=== PATIENT | female | born 1935 | race Caucasian/White ===

== ENCOUNTER → 2018-06-07 | Outpatient (CLI) | payer MEDICARE ==
[2018-06-07 14:43] LABS: ALBUMIN 3.3 g/dL (3.4-5.0); ALBUMIN/GLOBULIN RATIO 0.8 (1.0-1.7); CALCIUM 9.3 mg/dL (8.5-10.1); CREATININE 1.1 mg/dL (0.6-1.0); GFR 47.6; POTASSIUM 4.9 mmol/L (3.5-5.1); TOTAL BILIRUBIN 0.6 mg/dL (0.2-1.0); TOTAL PROTEIN 7.5 g/dL (6.4-8.2)
== END | disposition home or self-care (01) ==
LOC: SPEC 14:17
PROVIDERS: ATTEND Family Medicine
DX: I11.0 Hypertensive heart disease with heart failure (principal); I50.40 Unspecified combined systolic (congestive) and diastolic (congestive) heart failure; I69.398 Other sequelae of cerebral infarction; R41.841 Cognitive communication deficit
CPT/HCPCS: 36415; 80053

== ENCOUNTER → 2018-06-29 | Outpatient (CLI) | payer MEDICARE ==
[2018-06-29 13:20] LABS: CALCIUM 8.5 mg/dL (8.5-10.1); GFR 53.1; POTASSIUM 4.9 mmol/L (3.5-5.1)
== END | disposition home or self-care (01) ==
LOC: SPEC 13:01
PROVIDERS: ATTEND Family Medicine
DX: I11.0 Hypertensive heart disease with heart failure (principal); I50.40 Unspecified combined systolic (congestive) and diastolic (congestive) heart failure; L03.115 Cellulitis of right lower limb; I69.398 Other sequelae of cerebral infarction
CPT/HCPCS: 36415; 80048

== ENCOUNTER → 2018-10-10 | Outpatient (CLI) | payer MEDICARE ==
[2018-10-10 15:34] LABS: ALBUMIN 3.3 g/dL (3.4-5.0); ALBUMIN/GLOBULIN RATIO 0.8 (1.0-1.7); CALCIUM 9.2 mg/dL (8.5-10.1); CREATININE 1.1 mg/dL (0.6-1.0); GFR 47.6; POTASSIUM 4.6 mmol/L (3.5-5.1); TOTAL BILIRUBIN 0.4 mg/dL (0.2-1.0); TOTAL PROTEIN 7.2 g/dL (6.4-8.2)
== END | disposition home or self-care (01) ==
LOC: SPEC 14:52
PROVIDERS: ATTEND Family Medicine
DX: I11.0 Hypertensive heart disease with heart failure (principal); I50.9 Heart failure, unspecified; I25.10 Atherosclerotic heart disease of native coronary artery without angina pectoris; I25.5 Ischemic cardiomyopathy
CPT/HCPCS: 36415; 80053

== ENCOUNTER 2020-09-16 12:00 | Inpatient (IN) | payer MEDICARE, OTHER ==
[~2020-09-16] VITALS: Ht 160 cm; Wt 71.0 kg
[2020-09-16] VITALS (11 sets, daily range): BP systolic 76–154; BP diastolic 44–74
--- NOTE | 2020-09-16 12:14 | RAD ---
EXAM: CT head without contrast INDICATION: Stroke alert, right-sided deficits. No history of prior stroke COMPARISON: None TECHNIQUE: Axial CT imaging through the head without intravenous contrast. One or more of the following individualized dose reduction techniques were utilized for this examinat ion: 1. Automated exposure control 2. Adjustment of the mA and/or kV according to patient size 3. Use of iterative reconstruction technique. FINDINGS: There is hypoattenuation along the medial left occipital cortex adjacent to the occipital horn of the left lateral ventricle, suspicious for an age indeterminate infarct. There is no intracranial hemorr romario. Ventricles and sulci are moderately enlarged. The calvarium is intact. The visualized paranasal sinuses and mastoid air cells are clear. Globes and orbits are intact. IMPRESSION: 1. No intracranial hemorrhage. 2. Age-indeterminate infarct in the medial left occipital lobe. MRI could be obtained to further eval uate for acute infarct if indicated. FOR INTERNAL CODING PURPOSES Critical result: Findings discussed with Dr. Delgadillo at 09/16/2020 12:09 PM. RESULT CODE: (C) Electronically signed by: Rosy Alberto MD (09/16/2020 12:11 PM) [id number]
[2020-09-16] MEDS ORDERED: VANCOMYCIN 1 GM in IV NORMAL SALINE 250ML 250 ML IV ONE (12:30)
[2020-09-16 13:58] LABS: BASO # 0.1 x10^3/uL (0.0-0.2); BASO % 1 % (0-3); EOS % 0 % (0-3); HEMATOCRIT 44.8 % (36.0-47.0); HEMOGLOBIN 14.9 g/dL (12.0-15.5); LYMPH # 0.4 x10^3/uL (1.0-4.8); LYMPH % 2 % (24-48); MEAN CORPUSCULAR HEMOGLOBIN 34 pg (25-35); MEAN CORPUSCULAR HGB CONC 33 g/dL (31-37); MEAN CORPUSCULAR VOLUME 103 fL (79-100); MONO # 0.5 x10^3/uL (0.0-1.1); MONO % 3 % (0-9); NEUT # 17.3 x10^3uL (1.8-7.7); NEUT % 94 % (31-73); PLATELET COUNT 194 x10^3/uL (140-400); RED BLOOD COUNT 4.36 x10^6/uL (3.50-5.40); RED CELL DISTRIBUTION WIDTH 14.7 % (11.5-14.5); WHITE BLOOD COUNT 18.4 x10^3/uL (4.0-11.0)
[2020-09-16 14:00] LABS: CALCIUM 9.2 mg/dL (8.5-10.1); CREATININE 1.2 mg/dL (0.6-1.0); GFR 42.8
[2020-09-16] MEDS ORDERED: VANCOMYCIN 1.75 GM in IV NORMAL SALINE 500ML 500 ML IV ONE ×2 (14:00→21:00)
[2020-09-16 14:06] LABS: ALBUMIN 3.7 g/dL (3.4-5.0); ALBUMIN/GLOBULIN RATIO 0.8 (1.0-1.7); TOTAL BILIRUBIN 1.4 mg/dL (0.2-1.0); TOTAL PROTEIN 8.1 g/dL (6.4-8.2)
[2020-09-16 14:26] LABS: % ATYL 7 % (0-0); % BANDS 15 % (0-9); % BASOS 1 % (0-3); % LYMPHS 1 % (24-48); % MONOS 4 % (0-10); % SEGS 72 % (35-66); PLT ESTIMATE ADEQUATE (ADEQUATE)
--- NOTE | 2020-09-16 14:40 | PHYS DOC ---
Past History Additional Past Medical Histor: pacemaker Past Surgical History: Pacemaker Alcohol Use: None Adult General Chief Complaint Chief Complaint: NEURO SYMPTOMS/DEFICITS [facility] Patient is an 85-year-old female who presents to the emergency room who presents to the emergency room due to lethargy and falling to the right side. She was last seen normal at 1030 last night. Family states she does not have any neuro deficits at baseline and is able to follow commands. Patient denies any complaints other than feeling sleepy. She is a poor historian. Review of Systems Review of Systems Complete ROS is negative unless otherwise documented in HPI Current Medications Current Medications Current Medications Medications (Trade) Dose Ordered Sig/Zarina Start Time Stop Time Status Last Admin Dose Admin Vancomycin HCl 1.75 gm/Sodium Chloride 500 ml @ 250 mls/hr 1X ONCE 09/16/20 14:00 09/16/20 15:59 09/16/20 14:23 250 MLS/HR Vancomycin HCl 1 gm/Sodium Chloride 250 ml @ 250 mls/hr 1X ONCE 09/16/20 12:30 09/16/20 13:29 UNV Allergies Allergies Allergies Coded Allergies Type Severity Reaction Last Updated Verified No Known Drug Allergies 09/16/20 No Physical Exam Physical Exam General: Awake, lethargic. Well Nourished, well hydrated. Cooperative HEENT: Atraumatic, EOMI, PERRL, airway patent, dry oral mucosa Neck: Supple, trachea midline Respiratory: CTA bilaterally, normal effort, no wheezing/crackles CV: RRR, no murmur, cap refill <2 GI: Soft, nondistended, nontender, no masses MSK: Right lower extremity: Erythema from the ankle to below the knee with swelling and warmth consistent with cellulitis Skin: Warm, dry, intact Neuro: A&O x3, speech limited, patient intermittently moves limbs but is unable to do strength testing in any of the 4 limbs. She is able to squeeze my fingers on both sides and appears to be weaker on the right. Patient is unable to stand. She does not follow commands to do cranial nerve evaluation. Psych: Confused, lethargic, not suicidal or homicidal Current Patient Data Vital Signs Vital Signs Date Time Temp Pulse Resp B/P (MAP) Pulse Ox O2 Delivery O2 Flow Rate FiO2 09/16/20 14:06 71 16 140/55 (83) 99 Room Air 09/16/20 12:03 100.4 Lab Results Laboratory Tests Test 09/16/20 13:25 White Blood Count 18.4 x10^3/uL (4.0-11.0) H Red Blood Count 4.36 x10^6/uL (3.50-5.40) Hemoglobin 14.9 g/dL (12.0-15.5) Hematocrit 44.8 % (36.0-47.0) Mean Corpuscular Volume 103 fL (79-100) H Mean Corpuscular Hemoglobin 34 pg (25-35) Mean Corpuscular Hemoglobin Concent 33 g/dL (31-37) Red Cell Distribution Width 14.7 % (11.5-14.5) H Platelet Count 194 x10^3/uL (140-400) Neutrophils (%) (Auto) 94 % (31-73) H Lymphocytes (%) (Auto) 2 % (24-48) L Monocytes (%) (Auto) 3 % (0-9) Eosinophils (%) (Auto) 0 % (0-3) Basophils (%) (Auto) 1 % (0-3) Neutrophils # (Auto) 17.3 x10^3uL (1.8-7.7) H Lymphocytes # (Auto) 0.4 x10^3/uL (1.0-4.8) L Monocytes # (Auto) 0.5 x10^3/uL (0.0-1.1) Eosinophils # (Auto) 0.0 x10^3/uL (0.0-0.7) Basophils # (Auto) 0.1 x10^3/uL (0.0-0.2) Segmented Neutrophils % 72 % (35-66) H Band Neutrophils % 15 % (0-9) H Lymphocytes % 1 % (24-48) L Atypical Lymphocytes % (Manual) 7 % (0-0) H Monocytes % 4 % (0-10) Basophils % 1 % (0-3) Platelet Estimate Adequate (ADEQUATE) Sodium Level 139 mmol/L (136-145) Potassium Level 4.0 mmol/L (3.5-5.1) Chloride Level 102 mmol/L (98-107) Carbon Dioxide Level 29 mmol/L (21-32) Anion Gap 8 (6-14) Blood Urea Nitrogen 24 mg/dL (7-20) H Creatinine 1.2 mg/dL (0.6-1.0) H Estimated GFR (Cockcroft-Gault) 42.8 BUN/Creatinine Ratio 20 (6-20) Glucose Level 108 mg/dL (70-99) H Lactic Acid Level 3.0 mmol/L (0.4-2.0) H Calcium Level 9.2 mg/dL (8.5-10.1) Total Bilirubin 1.4 mg/dL (0.2-1.0) H Aspartate Amino Transferase (AST) 17 U/L (15-37) Alanine Aminotransferase (ALT) 17 U/L (14-59) Alkaline Phosphatase 93 U/L (46-116) Total Protein 8.1 g/dL (6.4-8.2) Albumin 3.7 g/dL (3.4-5.0) Albumin/Globulin Ratio 0.8 (1.0-1.7) L EKG EKG [] Radiology/Procedures Radiology/Procedures [] Heart Score C/O Chest Pain: N/A Risk Factors: Risk Factors: DM, Current or recent (<one month) smoker, HTN, HLP, family history of CAD, obesity. Risk Scores: Risk Factors: DM, Current or recent (<one month) smoker, HTN, HLP, family history of CAD, obesity. Course & Med Decision Making Course & Med Decision Making Pertinent Labs and Imaging studies reviewed. (See chart for details) Patient is an 85-year-old female presents to the emergency room with leaning to the right side and concern of neuro deficits. Patient does not have any chronic deficits. Neurologic exam is difficult due to patient's lethargy and conf usion. She was activated as a stroke in the field. CT head was done and shows possible subacute stroke. Her last known well time was at 1030 last night patient is not a candidate for TPA. Patient's initial vitals show that she is febrile and tachycardic. She also has a white blood cell count. She has cellulitis on the right lower extremity. Patient appears to have sepsis as well as a subacute stroke. I discussed it with Dr. Pereira who will admit the patient here at [facility]. Neurology will be consulted. Dragon Disclaimer Dragon Disclaimer This electronic medical record was generated, in whole or in part, using a voice recognition dictation system. Critical Care Note Comments Critical Care: Authorized and Performed by: Layla Delgadillo MD Total critical care time: approximately 40 minutes Due to a high probability of clinically significant, life threatening deterioration, the patient required my highest level of preparedness to in [facility] emerg[facility] and I personally spent this critical care time directly and personally managing the patient. This critical care time included obtaining a history; examining the patient; pulse oximetry; ventilator management if necessary; ordering and review of studies; arranging urgent treatment with development of a management plan; evaluation of patient's response to treatment; frequent reassessment; discussion with patient/family; and, discussions with other providers. This critical care time was performed to assess and manage the high probability of imminent, life-threatening deterioration that could result in multi-organ anna lure. It was exclusive of separately billable procedures and treating other patients and teaching time. Please see MDM section and the rest of the note for further information on patient assessment and treatment. Departure Departure: Impression: Primary Impression: Sepsis Additional Impressions: Cellulitis Stroke Disposition: ADMITTED INPATIENT Condition: CRITICAL Referrals: PCP,NO (PCP) Problem Qualifiers LAYLA DELGADILLO MD Sep 16, 2020 14:40
[2020-09-16] MEDS ORDERED: IV NORMAL SALINE 1,000ML 1,000 ML IV ONE (14:45)
--- NOTE | 2020-09-16 14:59 | RAD ---
EXAM: Chest, single view. HISTORY: Shortness of breath. COMPARISON: None. FINDINGS: A frontal view of the chest is obtained. There is no infiltrate, pleural effusion or pneumo thorax. There is a prominent cardiac silhouette. There is a cardiac pacemaker in expected position. T here is instrumented fusion at the lower thoracic levels. There is an IVC filter at the inferior kellie in of the [id number]. There is a prominent right paratracheal stripe likely due to tortuous arch g reat vessels. IMPRESSION: No acute pulmonary finding. Prominent cardiac silhouette. Electronically signed by: Sammie Adhikari MD (09/16/2020 2:57 PM) [id number]
[2020-09-16] MEDS ORDERED: ACETAMINOPHEN 325 MG TABLET PO PRN (17:15)
[2020-09-16] MEDS ORDERED: ONDANSETRON PF 4 MG/2 ML VIAL. IVP PRN (17:15)
[2020-09-16] MEDS ORDERED: METOCLOPRAMIDE HCL 10 MG/2 ML VIAL. IVP PRN (17:15)
[2020-09-16] MEDS ORDERED: ASPI-630 PO (17:39)
[2020-09-16] MEDS ORDERED: CHOL50003 PO (17:39)
[2020-09-16] MEDS ORDERED: NYST1000 PO (17:39)
[2020-09-16] MEDS ORDERED: METO-239 PO (17:39)
[2020-09-16] MEDS ORDERED: CARB200T3 PO (17:39)
[2020-09-16] MEDS ORDERED: BACL10TA PO (17:39)
[2020-09-16] MEDS ORDERED: GABA600T7 PO (17:39)
[2020-09-16] MEDS ORDERED: FURO40TA4 PO (17:39)
[2020-09-16] MEDS ORDERED: PANT40TA6 PO (17:39)
[2020-09-16] MEDS ORDERED: TEMA15CA PO (17:39)
[2020-09-16] MEDS ORDERED: ACET325T21 PO (17:39)
[2020-09-16] MEDS ORDERED: FERR325T14 PO (17:39)
[2020-09-16] MEDS ORDERED: APIX5TAB3 PO (17:39)
[2020-09-16] MEDS ORDERED: RAMI5CAP50 PO (17:39)
[2020-09-16] MEDS ORDERED: NYST15PO9 TP (18:05)
[2020-09-16] MEDS ORDERED: PIP/TAZO PER PHARMACY MC PRN (18:45)
[2020-09-16] MEDS ORDERED: VANCOMYCIN PER PHARMACY MC PRN (18:45)
--- NOTE | 2020-09-16 18:55 | NUR ---
PT admittted to I[facility] bed 3. PT reports that within the last day the patient has declined. She has been asking him to feed her and not getting around well. She was walking with the 'walker' that they have at home somewhat reports the . She is incontinent and he does change her, but they have home health also. PT was getting care through [facility] and has been having the RLE cellulitis since at least since june and was on zyvoxx po. PT denies history of cva and has been taking her eliquis. Daughter is involved in care and lives in [facility]. Pt is a DNR, but does not have a DPOA. PT has a known open coccyx wound and excoriation in her john area and under her breasts that they have been using nystatin power on per her . Initially they requested transport to [facility], however, they are 'not open' per ER. is ok with her staying here if that is appropriate. Ladonna Chandler APRN
[2020-09-16] MEDS: IV NORMAL SALINE 1,000ML 1,000 ML IV SCH (19:09)
--- NOTE | 2020-09-16 19:54 | HP ---
ADMIT DATE: 09/16/2020 HISTORY OF PRESENT ILLNESS: The patient is an 85-year-old female patient, who lives at home with her who was brought to the Emergency Room with a complaint of altered mental status. She apparently has been lethargic and falling to the right side. According to her , she also stated that she is now unable to use her right hand to feed herself. According to the family, the patient is not known to have any neurological deficit at baseline and is able to follow commands and according to her and , she was able to walk with a walker, although clinically she has bilateral footdrop. She was evaluated in the Emergency Room and has had a CT scan of the head which basically showed no intracranial hemorrhage, age indeterminate infarct, in the medial left occipital lobe. MRI could be obtained to further evaluate for acute infarct if indicated. Her chest x-ray showed no acute pulmonary finding with a prominent cardiac silhouette, has had lab work showed that she has leukocytosis and lactic acidosis and she was found to have right lower extremity cellulitis that extends all the way to the right thigh. She apparently was on oral Zyvox at home. PAST MEDICAL HISTORY: Significant for hypertension, atrial fibrillation, gastroesophageal reflux disease. PAST SURGICAL HISTORY: Significant for permanent pacemaker placement. FAMILY HISTORY: Noncontributory. SOCIAL HISTORY: She is and lives with her . She does not smoke, drink alcohol or use any recreational drugs. ALLERGIES: She has no known drug allergies. MEDICATIONS: She is currently on the following medications: She is on nystatin oral suspension 5 mL swish and swallow 4 times a day, baclofen 5 mg 3 times a day, ferrous sulfate 325 mg once a day, apixaban 5 mg twice a day, metoprolol succinate 25 mg once a day, ramipril 5 mg once a day, aspirin 81 mg once a day. She is on acetaminophen 650 mg every 6 hours, carbamazepine 200 mg twice a day, gabapentin 600 mg 3 times a day, temazepam 15 mg at bedtime, furosemide 40 mg once a day, Protonix 40 mg once a day, nystatin powder apply topically twice a day, cholecalciferol, vitamin D3 125 mcg once a day. PHYSICAL EXAMINATION: GENERAL: On arrival to the emergency room, the patient showed no pallor, jaundice, cyanosis, no lymphadenopathy, no thyromegaly, no jugular venous distention. No lower limb edema. VITAL SIGNS: Her heart rate was 70, blood pressure 150/75, temperature was 100.4, respiratory rate was 16 and oxygen saturation was 98% on room air. HEAD, EYES, EARS, NOSE AND THROAT: Showed normocephalic, atraumatic. NECK: Supple. HEART: Showed normal first and second heart sounds, no gallop, rub or murmur. CHEST: Clear to auscultation, no crepitation or rhonchi. ABDOMEN: Distended, soft, nontender, no guarding or rigidity. No organomegaly. All hernial orifice intact. Bowel sounds normal. NEUROLOGIC: She is awake, alert, responding appropriately. All her cranial nerves are intact. She is able to move her extremities, although she stated that she has now had been unable to move the right hand and can feed herself. She has bilateral footdrop. SKIN: Showed marked erythema involving the right lower extremity from the mid dorsal aspect of the right foot extending proximally all the way to the right groin. LABORATORY DATA: On admission showed that her white cell count was 18,400, hemoglobin 14, hematocrit 44, MCV 103 and platelet count of 194,000 with a manual differential showed 94% polymorphs, 2% lymphocytes and 3% monocytes. Her chemistry showed a serum sodium 139, potassium 4, chloride 102, bicarbonate 29, anion gap of 8, BUN 24, creatinine 1.2. Estimated GFR was 42 mL per minute. Her glucose 108. Her lactic acid was high at 3, calcium was 9.2. Total bilirubin is 1.4. AST, ALT, alkaline phosphatase were normal. Total protein was 8.1, albumin was 3.7. ASSESSMENT AND PLAN: In summary, this is an 85-year-old female patient who was seen in the emergency room for altered mental status and what seems tendency to fall to the right side. The patient herself stated that she is unable to use her right upper extremity. Clinically, she has marked tremors anticipation although according to her she has never been told that she has Parkinson's disease nor that she has benign essential familial tremor. Her CT scan of the head showed that she has age indeterminate infarct in the medial left occipital lobe. MRI could be obtained to further evaluate for acute infarct if indicated. My plan is to continue with IV vancomycin and add IV Zosyn given that she continued to be symptomatic despite being on Zyvox. I will arrange for her to have bilateral carotid Doppler ultrasound. I will consult the neurologist and arrange for bilateral carotid Doppler ultrasound and fasting lipid profile and decide on further management accordingly. If the family wants to continue transferring her to [facility], we will arrange that tomorrow. Apparently, they have no bed today. DANIEL DR: Sergio TID: [id number]
[2020-09-16] MEDS: GABAPENTIN 300 MG CAPSULE. PO SCH (20:30)
[2020-09-16] MEDS: carBAMazepine 200 MG TABLET PO SCH (20:30)
[2020-09-16] MEDS: APIXABAN 5 MG TABLET. PO SCH (20:30)
[2020-09-16] MEDS: TEMAZEPAM 15 MG CAPSULE PO SCH (20:30)
[2020-09-16] MEDS: PIPERACILLIN/TAZOBACTAM 2.25 GM in IV NORMAL SALINE 50ML 50 ML IV SCH (20:30)
[2020-09-16] MEDS: NYSTATIN TOPICAL POWDER 15GM BOTTLE. TP SCH (20:30)
[2020-09-16] MEDS: NYSTATIN 100,000 UNITS/ML ORAL SUSPENSION 60ML BOTTLE. PO SCH (20:31)
[2020-09-16] MEDS: BACLOFEN 10 MG TABLET PO SCH (20:31)
[2020-09-16] MEDS: LISINOPRIL 10 MG TABLET PO SCH (21:00)
--- NOTE | 2020-09-16 21:00 | NUR ---
Pt awake in bed at change of shift watching TV. Pt is lethargic but able to answer questions appropriately. Pt frequently yells out for assistance in finding a TV channel, applying [employer] or for a drink. Pt with upper & lower right leg cellulitis, 2 open coccyx wounds and excoriation under both breast and john-area. Wound photos taken using [employer] system and placed in paper chart. Foam dressings applied to coccyx wounds. Nystatin powder applied to excoriation under breast and john-area. Wound care and Dietary consulted. Pt took HS medications whole but one at a time without difficulty. Pt needed max assist with HS snack but swallowed without difficulty. Pt with Sherman catheter draining straw colored urine. Pt turn Q2 with purple wedge. Dr Castaneda here to see pt. Pt to have bilateral Carotid Doppler in AM. PICC and specialty bed ordered, awaiting call back fro [facility] for PICC line.
--- NOTE | 2020-09-16 21:11 | NUR ---
Pharmacy Vancomycin Dosing Note S:Consulted to monitor and dose vancomycin started 09/16/20. O:CANDELARIA LUGO is a 85 year old F with Cellulitis Sepsis, . Height: 5 feet, 3 inches Weight: 71.0 kg [place] Body Weight: 52.40 Adjusted Body Weight: 59.84 Dosing Weight: Actual Other Antibiotics: ZOSYN 2.25GM IV Q6HR LABS: Last BUN: 24 Last Creatinine: 1.2 Creatinine Clearance: 32.97 Last WBC: 18.4 Vancomycin Dosing: Loading Dose: 1750 mg x1 Dosing Weight: Actual Target Trough: 10-20 A: Based on: Actual weight, renal function, and indication P: 1. Begin Vancomycin 1000 mg IV q24h 2. Follow up Trough level on 09/18/20 at 2030 3. Pharmacy will continue to monitor, follow and adjust therapy as needed. JAIME SPENCER, 09/16/20 [id number]
[2020-09-16] MEDS ORDERED: IV NORMAL SALINE 500ML 500 ML IV ONE (22:45)
--- NOTE | 2020-09-16 23:20 | NUR ---
Pt with low BP while sleeping (95/37 and 76/46 and 78/46). Dr Pereira called and notified, orders received. BP improved after bolus, now 113/67. Pt asleep in bed.
[2020-09-17] VITALS (26 sets, daily range): BP systolic 90–146; BP diastolic 42–84
[2020-09-17] MEDS: PIPERACILLIN/TAZOBACTAM 2.25 GM in IV NORMAL SALINE 50ML 50 ML IV SCH ×4 (01:52→19:58)
--- NOTE | 2020-09-17 02:46 | CONS ---
DATE OF CONSULTATION: 09/16/2020 NEUROLOGY CONSULTATION REFERRING PHYSICIAN: Dr. Pereira. REASON FOR CONSULTATION: Acute mental status, rule out stroke. HISTORY OF PRESENT ILLNESS: This is an 85-year-old right-handed female, who was admitted through emergency room after she was found confused and disoriented. She states she has been falling recently and difficulty to walk and use her right upper extremity. The patient denies headaches, visual disturbances, nausea, vomiting, chest pain, shortness of breath or palpitation. However, she complains of generalized weakness, intermittent tremor of the upper extremities. Initial nonenhanced head CT scan revealed an old infarct confined to the left occipital region. Initial chest x-ray revealed no acute pulmonary process. The patient stated she started having a right lower extremity swelling along with pain and feeling hot and consistent with symptoms of cellulitis. PAST MEDICAL HISTORY: Significant for atrial fibrillation, hypertension, GERD. PAST SURGICAL HISTORY: Positive for a permanent pacemaker placement. SOCIAL HISTORY: The patient is . She lives with her at home. She denies smoking, alcohol drinking or illicit drug use. FAMILY HISTORY: Noncontributory. ALLERGIES: No known drug allergies. CURRENT HOME MEDICATIONS: Baclofen, ferrous sulfate, apixaban, metoprolol, ramipril, Tylenol, gabapentin, carbamazepine, temazepam, furosemide, vitamin D3, and Protonix. PHYSICAL EXAMINATION: GENERAL: A well-developed, well-nourished female in no acute distress. She weighs 71 kilos. VITAL SIGNS: Blood pressure 95/44, respiratory rate 12, pulse rate 70, irregular; oxygen saturation is 96% on 2 liters per nasal cannula. HEENT: Normocephalic, atraumatic, otherwise unremarkable. NECK: Supple, negative for carotid bruit, lymphadenopathy or thyromegaly. LUNGS: Clear to A and P. CARDIAC: Regular rate and rhythm, normal S1, S2. ABDOMEN: Soft. Bowel sounds positive. EXTREMITIES: Negative for cyanosis. However, the right lower extremity reveals diffuse swelling, warmth to touch with discoloration, consistent with cellulitis. NEUROLOGIC: Mental status: The patient is alert and oriented x2. Speech is clear. There is no language dysfunction. Memory, judgment and abstracting thinkings are fair. The patient denies hallucination or delusion. Cranial Nerves: The pupils are equal and reactive to light and accommodation. Extraocular movements are intact. There is no nystagmus. There is no facial motor or sensory deficit. Hearing appeared to be intact bilaterally. The palate is elevated symmetrically. Sternocleidomastoid muscles are powerful bilaterally. The patient shrugs her shoulders symmetrically and protrudes her tongue in the midline without fasciculation or atrophy. Motor Examination: No focal muscle bulk wasting. The tone is normal. The strength is 4/5 throughout. The patient has resting, postural and kinetic tremors of the upper extremities, more prominent on the left side. Sensory examination revealed a normal pinprick and light touch senses throughout. Deep tendon reflexes were asymmetric and hypoactive with absent Achilles responses. Gait not tested. LABORATORY DATA: CBC revealed white cells of 18.4 thousand, hemoglobin 14.9, hematocrit 44.8, platelet count 194,000. Chemistry revealed a sodium of 139, potassium 4, chloride 102, CO2 of 29, BUN 24, creatinine 1.2, glucose 108, calcium 9.2. Liver enzymes normal. IMPRESSION: 1. Acute encephalopathy, probably due to underlying metabolic and infectious process. 2. Dehydration versus renal insufficiency. 3. Leukocytosis, likely due to acute cellulitis. 4. history of atrial fibrillation s/p pacemaker placement 5. Hypertension. 6. Postural and kinetic tremor, may represent essential tremor. RECOMMENDATION: 1. Continue with current medical therapy initiated by Dr. Pereira and treat the underlying sepsis. 2. Start patient on primidone at 50 mg it daily and increase it gradually as tolerated 3. Physical therapy evaluation. MODE DR: Ritika TID: [id number] MTDD
[2020-09-17] MEDS: IV NORMAL SALINE 1,000ML 1,000 ML IV SCH ×3 (05:47→17:17)
[2020-09-17] MEDS: NYSTATIN TOPICAL POWDER 15GM BOTTLE. TP SCH ×2 (09:00→20:45)
[2020-09-17] MEDS: NYSTATIN 100,000 UNITS/ML ORAL SUSPENSION 60ML BOTTLE. PO SCH ×4 (09:00→20:44)
[2020-09-17] MEDS: APIXABAN 5 MG TABLET. PO SCH ×2 (09:31→20:45)
[2020-09-17] MEDS: BACLOFEN 10 MG TABLET PO SCH ×3 (09:31→20:45)
[2020-09-17] MEDS: PANTOPRAZOLE 40 MG TABLET. PO SCH (09:31)
[2020-09-17] MEDS: CHOLECALCIFEROL (VITAMIN D3) 1,000 UNIT TABLET PO SCH (09:31)
[2020-09-17] MEDS: FUROSEMIDE 40 MG TABLET PO SCH (09:32)
[2020-09-17] MEDS: LACTOBACILLUS RHAMNOSUS GG 1 CAPSULE. PO SCH ×2 (09:32→20:45)
[2020-09-17] MEDS: ASPIRIN CHEWABLE 81 MG TABLET. PO SCH (09:32)
[2020-09-17] MEDS: FERROUS SULFATE 325 MG TABLET. PO SCH (09:32)
[2020-09-17] MEDS: GABAPENTIN 300 MG CAPSULE. PO SCH ×3 (09:32→20:45)
[2020-09-17] MEDS: carBAMazepine 200 MG TABLET PO SCH ×2 (09:33→20:45)
--- NOTE | 2020-09-17 10:45 | NUR ---
Pt mostly sleeping. Taking medications with applesauce, had some difficulty taking with water this morning. Vitals stable this morning. RN spoke with and patient about receiving a PICC. Both agree that this would be a good option. PICC team here now to place PICC line. Pt eating with assistance. Patient is turn q2. Pt knows she is at a hospital and knows her name. Is answering questions appropriately and is able to communicate her needs and concerns. WCTM.
--- NOTE | 2020-09-17 11:34 | RAD ---
EXAM: Bilateral carotid duplex with waveform analysis. CLINICAL HISTORY: Reason: NEW STROKE, HTN, HX OF SMOKING / Spl. Instructions: / History: . . TECHNIQUE: Longitudinal and transverse sonographic images of the bilateral carotid arteries was perfo rmed utilizing grayscale, color and spectral Doppler techniques. This exam is mildly limited by poor patient compliance including intermittent snoring during the exam. COMPARISON: None FINDINGS: Right Carotid: Common carotid artery is patent with no significant atherosclerosis. Right internal ca rotid artery is notable for bulky calcified atherosclerosis in the bulb. Left Carotid: Common carotid artery is patent with no significant atherosclerosis. Left internal mancilla tid artery is notable for moderate calcified atherosclerosis in the bulb. Vertebrals: Antegrade flow bilaterally. Right Left PSV CCA (cm/s) 45 51 PSV ICA (cm/s) 101 122 EDV ICA (cm/s) 16 20 PSV ECA (cm/s) 78 63 Subclavian PSV (cm/s) ICA/CCA Ratio 2.1 2.0 IMPRESSION: 1.. Bulky calcified bilateral internal carotid artery atherosclerosis. Primary parameters of peak sys tolic velocity and end-diastolic velocity indicate less than 50 percent stenosis bilaterally, however peak systolic velocity ratios are elevated, and there are some technical limitations this examinatio n due to reduced patient compliance. Consider 6 month follow-up ultrasound examination or further giovanna luation with CTA for definitive assessment plaque morphology and degree of stenosis. Stenosis calculations for CT, MR and conventional angiography are based upon measurement of the dista l ICA diameter in accordance with the NASCET methodology. Stenosis calculations for carotid ultrasou nd studies are derived from validated velocity criteria which are known to correlate with the NASCET methodology. Consensus Panel Chandler-scale and Doppler US Criteria for Diagnosis of ICA Stenosis Degree of Stenosis (%) ICA PSV (Cm/sec) Plaque Estimate (%)* Normal <125 None <50 <125 <50 50-69 125-230 >50 >70 but < near occlusion >230 >50 Near occlusion High, low, or undetectable Visible Total occlusion Undetectable Visible, no detectable lumen *Plaque estimate (diameter reduction) with chandler-scale and color Doppler US Degree of Stenosis (%) ICA/CCA PSV Ratio ICA EDV (cm/sec) Normal <2.0 <40 <50 <2.0 <40 50-69 2.0-4.0 40-100 >70 but < near occlusion >4.0 >100 Near occlusion Variable Variable Total occlusion Not applicable Not applicable Electronically signed by: Benedicto Zaavla MD (09/17/2020 11:31 AM) [id number]
--- NOTE | 2020-09-17 12:41 | RAD ---
EXAMINATION: XR CHEST 1V, XR CHEST 1V CLINICAL HISTORY: PICC line placement TECHNIQUE: XR CHEST 1V, XR CHEST 1V COMPARISON: 09/16/2020 FINDINGS/ IMPRESSION: Interval placement of right upper extremity PICC, initially extending cephalad in the neck beyond the upper margin of the image but subsequently repositioned with normal expected course to the level of the cavoatrial junction. Mild patchy bibasilar airspace disease and increased interstitial prominence suggestive of edema. Remainder of the study otherwise unchanged. Electronically signed by: Moreno Villegas DO (09/17/2020 12:39 PM) [id number]
[2020-09-17 15:12] LABS: HEMATOCRIT 33.6 % (36.0-47.0); HEMOGLOBIN 11.1 g/dL (12.0-15.5); RED BLOOD COUNT 3.26 x10^6/uL (3.50-5.40); RED CELL DISTRIBUTION WIDTH 14.9 % (11.5-14.5); WHITE BLOOD COUNT 9.6 x10^3/uL (4.0-11.0)
[2020-09-17 15:13] LABS: CALCIUM 7.5 mg/dL (8.5-10.1); CREATININE 0.9 mg/dL (0.6-1.0); GFR 59.7; POTASSIUM 3.6 mmol/L (3.5-5.1)
[2020-09-17 15:19] LABS: ALBUMIN 2.5 g/dL (3.4-5.0); ALBUMIN/GLOBULIN RATIO 0.8 (1.0-1.7); TOTAL PROTEIN 5.8 g/dL (6.4-8.2)
[2020-09-17] MEDS: METOPROLOL SUCC 24HR ER 25 MG TAB.ER.24H. PO SCH (15:22)
[2020-09-17] MEDS ORDERED: IV NORMAL SALINE 1,000ML 1,000 ML IV ONE (16:00)
[2020-09-17] MEDS ORDERED: HYDROcodone/APAP 5/325MG 1 TAB TABLET PO PRN (18:00)
[2020-09-17] MEDS: VANCOMYCIN 1 GM in IV NORMAL SALINE 250ML 250 ML IV SCH (20:45)
[2020-09-17] MEDS: TEMAZEPAM 15 MG CAPSULE PO SCH (20:45)
[2020-09-17] MEDS: LISINOPRIL 10 MG TABLET PO SCH (21:40)
[2020-09-18] VITALS (16 sets, daily range): BP systolic 92–151; BP diastolic 51–111
--- NOTE | 2020-09-18 00:10 | PN ---
SUBJECTIVE: The patient continues to have pain and swelling of the left lower extremity. She also complains of a tremor of both hands, more prominent on the left side. Apparently, the patient has longstanding history of a tremor, probably since age of 71s. She has 4 sisters having a similar tremor. This indicated that the patient may have a familial or essential tremor or senile tremor. The patient states she has not been treated for this tremor. OBJECTIVE: GENERAL: Well-developed, well-nourished female not in acute distress. VITAL SIGNS: Blood pressure 124/64, respiratory rate 10, pulse is 70 and regular, oxygen saturation is 98% on 2 liters via nasal cannula and temperature is 99.1. HEENT: Normocephalic, atraumatic, otherwise unremarkable. NECK: Supple. Negative for carotid bruit, lymphadenopathy or thyromegaly. LUNGS: Clear to A and P. CARDIOVASCULAR: Regular rate and rhythm. Normal S1, S2. ABDOMEN: Soft. Bowel sounds positive. EXTREMITIES: Positive for severe cellulitis of the left lower extremity with edema to her feet. NEUROLOGIC: Mental status: The patient is alert and oriented x2. The speech is fluent. There is no language dysfunction. Memory, judgment and abstracting thinking are fair. The patient denies hallucination or delusion. Cranial nerves are intact. Motor examination revealed marked weakness of the lower extremities and a foot drops bilaterally. The patient has a postural and kinetic tremors of both upper extremities, more prominent on the left side. Sensory examination revealed diminished pinprick and light touch senses in patchy distributions in distal lower extremities. Deep tendon reflexes were symmetric and hypoactive with absent Achilles responses. Gait not tested. IMPRESSION: 1. Acute encephalopathy, probably multifactorial including metabolic and infectious process -- acute cellulitis, right lower extremity. 2. History of atrial fibrillation with pacemaker placement. 3. Senile/familial tremor of both upper extremities, more prominent on the left side. 4. Peripheral neuropathy. RECOMMENDATIONS: 1. Continue with current management. 2. We will start the patient on 50 mg of primidone and increase it gradually as tolerated. DARIN/ABBEY/JADE DR: Ritika TID: [id number]
--- NOTE | 2020-09-18 00:38 | EKG ---
[address] [address] Test Date: 2020-09-17 Test Time: 05:10:17 Pat Name: CANDELARIA LUGO Department: Room: [facility] 1 Gender: F Enrichment Director: : [id number] Requested By: LAYLA RG Order Number: [id number] Reading MD: Measurements Intervals [place] Rate: 82 P: AK: QRS: -128 QRSD: 46 T: 162 QT: 438 QTc: 515 Interpretive Statements IRREGULAR RHYTHM, NO P-WAVE FOUND VENTRICULAR PREMATURE COMPLEX(ES) ABNORMAL RIGHT SUPERIOR AXIS DEVIATION LOW VOLTAGE QRS(T) CONTOUR ABNORMALITY CONSISTENT WITH ANTERIOR INFARCT AGE UNDETERMINED CONSISTENT WITH INFEROLATERAL INFARCT AGE UNDETERMINED ABNORMAL ECG RI6.01 No previous ECG available for comparison
[2020-09-18] MEDS: PIPERACILLIN/TAZOBACTAM 2.25 GM in IV NORMAL SALINE 50ML 50 ML IV SCH ×4 (01:44→20:36)
--- NOTE | 2020-09-18 02:16 | PN ---
DATE: 09/17/2020 SUBJECTIVE: The patient is resting, slightly propped up in bed, somewhat sleepy, but arousable. On questioning her, she continued to complain of pain in her right lower extremity. She is a difficult stick and last night, her blood pressure has actually a systolic blood pressure dropped down to almost 70 mmHg. We did treat her with IV fluid and eventually managed to get a double-lumen PICC line and she continued to be on IV antibiotic in the form of vancomycin as well as a Zosyn. PHYSICAL EXAMINATION: GENERAL: When I examined her, she was pale, not jaundiced, cyanosis or thyromegaly. No jugular venous distention. No lower limb edema. VITAL SIGNS: Her heart rate was 70, blood pressure was 90/48, temperature was 98.5, respiratory rate was 9, and oxygen saturation was 99% on 2 liters of oxygen. HEAD, EYES, EARS, NOSE, AND THROAT: Normocephalic, atraumatic. NECK: Supple. HEART: Showed normal first and second heart sounds, no gallop, rub or murmur. CHEST: Clear to auscultation, no crepitation or rhonchi. ABDOMEN: Distended, soft, nontender. NEUROLOGIC: She is sleepy, but arousable. All cranial nerves intact. She moves upper extremities to much good extent than lower extremities. She has bilateral footdrop. She has the erythema, is for some reason, more intensely involving her right foot and right leg extending all the way to the right thigh. Her intake was 4120, output was 550. LABORATORY DATA: Her lab work this morning showed a white cell count was down to 9600, hemoglobin 11, hematocrit 33, MCV 103, and platelet count of 140. Her serum sodium was 140, potassium 3.6, chloride 106, bicarbonate 27, anion gap of 7, BUN 23, creatinine was 0.9. Estimated GFR was 59 mL per minute. Her glucose was 93, calcium was 7.5. Total bilirubin, AST, ALT, alkaline phosphatase were normal. Total protein 5.8, albumin was 2.5. PLAN: My plan is to continue with IV antibiotic. Continue with IV fluid. Continue with wound care. I did contact the transfer center at [facility] to transfer her to [facility] as the expressed the desire to have her admitted there yesterday; however, at that time, they did not have any beds and she was admitted here. GOPAL DR: Sergio TID: [id number]
[2020-09-18] MEDS: IV NORMAL SALINE 1,000ML 1,000 ML IV SCH ×2 (04:50→12:45)
--- NOTE | 2020-09-18 05:30 | NUR ---
Pt awake in bed at change of shift watching TV, requesting help in finding "Gun Smoke" on TV. Pt is still lethargic and unmotivated, frequently asking for things she can do herself (change TV channel, apply ChapStick, feed herself, reach for drink cup). Pt A&Ox3, able to answer questions appropriately but can be forgetful at times. Pt with upper & lower right leg cellulitis, seem worse with increased swelling, hot to touch. Pt with 2 open coccyx wounds, Calmoseptine applied. Excoriation under both breast seems improved- Nystatin powder applied. Awaiting to be seen by Wound care. Pt took HS medications whole but one at a time without difficulty. Pt needed total assist with eating HS snack of pudding but swallowed without difficulty. Pt with Sherman catheter draining pink/red colored urine, new from previous day. Pt turn Q2 with purple wedge and legs elevated on pillows.
[2020-09-18 06:58] LABS: HEMATOCRIT 33.4 % (36.0-47.0); RED BLOOD COUNT 3.21 x10^6/uL (3.50-5.40); WHITE BLOOD COUNT 6.9 x10^3/uL (4.0-11.0)
[2020-09-18 07:17] LABS: ALBUMIN 2.5 g/dL (3.4-5.0); ALBUMIN/GLOBULIN RATIO 0.7 (1.0-1.7); CALCIUM 7.3 mg/dL (8.5-10.1); CREATININE 0.8 mg/dL (0.6-1.0); GFR 68.3; POTASSIUM 3.6 mmol/L (3.5-5.1); TOTAL BILIRUBIN 0.8 mg/dL (0.2-1.0); TOTAL PROTEIN 5.9 g/dL (6.4-8.2)
[2020-09-18] MEDS ORDERED: PRIMIDONE 50 MG TABLET PO SCH (09:00)
[2020-09-18] MEDS: ASPIRIN CHEWABLE 81 MG TABLET. PO SCH (09:17)
[2020-09-18] MEDS: FERROUS SULFATE 325 MG TABLET. PO SCH (09:17)
[2020-09-18] MEDS: LACTOBACILLUS RHAMNOSUS GG 1 CAPSULE. PO SCH ×2 (09:17→20:37)
[2020-09-18] MEDS: APIXABAN 5 MG TABLET. PO SCH ×2 (09:17→17:02)
[2020-09-18] MEDS: BACLOFEN 10 MG TABLET PO SCH ×3 (09:18→20:36)
[2020-09-18] MEDS: GABAPENTIN 300 MG CAPSULE. PO SCH ×3 (09:18→20:36)
[2020-09-18] MEDS: NYSTATIN 100,000 UNITS/ML ORAL SUSPENSION 60ML BOTTLE. PO SCH ×4 (09:18→20:36)
[2020-09-18] MEDS: FUROSEMIDE 40 MG TABLET PO SCH (09:18)
[2020-09-18] MEDS: PANTOPRAZOLE 40 MG TABLET. PO SCH (09:19)
[2020-09-18] MEDS: METOPROLOL SUCC 24HR ER 25 MG TAB.ER.24H. PO SCH (09:20)
[2020-09-18] MEDS: carBAMazepine 200 MG TABLET PO SCH ×2 (09:20→20:36)
[2020-09-18] MEDS: CHOLECALCIFEROL (VITAMIN D3) 1,000 UNIT TABLET PO SCH (09:21)
[2020-09-18] MEDS: NYSTATIN TOPICAL POWDER 15GM BOTTLE. TP SCH ×2 (09:21→20:36)
[2020-09-18] MEDS: VANCOMYCIN 1 GM in IV NORMAL SALINE 250ML 250 ML IV SCH (17:05)
--- NOTE | 2020-09-18 18:00 | NUR ---
Wound Care Wound Type/Assessment: patient seen per wound care consult. see wound assessment. patient has maceration and redness under the breast, the areas were cleaned and nystatin powder applied at this time. patient also has bilateral buttock stage 2 pressure ulcers and maceration the areas were cleaned and redressed with recommendations of Calazime cream. patient needs to be turning every 2 hours, patient turned to the right side at this time. Treatment Recommendations/Plan: Recommendations to bilateral breast, cleanse the area and continue with the nystatin powder. recommendations to the bilateral buttocks- cleanse the area and apply Calazime cream, prn. Offloading surface/device: Wedge, pillows and a P500 bed. Discharge Recommendations for dressings: Wound care will continue to f/u for changes.
[2020-09-18] MEDS: TEMAZEPAM 15 MG CAPSULE PO SCH (20:36)
[2020-09-18] MEDS: PROPRANOLOL 10 MG TABLET. PO SCH (20:37)
[2020-09-18] MEDS: ACETAMINOPHEN 325 MG TABLET PO PRN (20:37)
[2020-09-18] MEDS: LISINOPRIL 10 MG TABLET PO SCH (21:00)
--- NOTE | 2020-09-18 22:15 | PN ---
SUBJECTIVE: The patient denies any new medical or neurological complaints. The patient continues to have tremor of both hands. However, primidone has some interaction with Eliquis and propranolol is indicated; however, she has been on a low dose of metoprolol, but her blood pressure has been intermittently low. Therefore, the patient has not been on primidone or propranolol. She denies chest pain, shortness of breath or palpitation, dysarthria or dysphagia. The patient eats and drinks well. OBJECTIVE: GENERAL: Well-developed, well-nourished female, not in acute distress. VITAL SIGNS: Blood pressure 116/68, respiratory rate 14, pulse is 70 on permanent pacemaker, oxygen saturations is 97% on 2 liters per nasal cannula. HEENT: Normocephalic, atraumatic, otherwise unremarkable. NECK: Supple, negative for carotid bruit, lymphadenopathy or thyromegaly. LUNGS: Clear to A and P. CARDIOVASCULAR: Regular rate and rhythm, normal S1, S2. ABDOMEN: Soft. Bowel sounds positive. EXTREMITIES: Positive for edema and hot to touch due to underlying cellulitis. MOTOR EXAMINATION: The patient has mild postural and kinetic tremors of both hands, more prominent on the left side. Motor examination revealed no focal muscle bulk was seen. The strength was 3/5 in the lower extremities with bilateral foot drops. LABORATORY DATA: CBC revealed blood cells of 6.9 thousand, hemoglobin 11, hematocrit 33.4, platelet count 130,000. Chemistry revealed sodium of 142, potassium 3.6, chloride 109, CO2 of 22, BUN 21, creatinine 0.8, calcium 7.3. IMPRESSION: 1. Acute encephalopathy -- improved, probably due to underlying infections. 2. 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 3. History of atrial fibrillation, status post permanent pacemaker placement. 4. Peripheral neuropathy in the lower extremities with bilateral foot drop. RECOMMENDATIONS: 1. We will continue with current management. 2. The patient may benefit from propranolol for essential tremor. However, she is on another beta ivan of metoprolol and intermittent low blood pressure. ANITA DR: Ritika TID: [id number]
[2020-09-19] VITALS (8 sets, daily range): BP systolic 107–147; BP diastolic 63–93
[2020-09-19] MEDS: PIPERACILLIN/TAZOBACTAM 2.25 GM in IV NORMAL SALINE 50ML 50 ML IV SCH ×4 (02:11→20:45)
--- NOTE | 2020-09-19 06:30 | NUR ---
Pt sitting up in chair at change of shift watching TV, assisted back to bed x3 assist (max assist). Pt is A&Ox4, more interactive and alert then previous 2 shifts with pt. Pt ate HS snack with set up help only. Pt was seen by wound care, see noted for recommendations. Pt with Sherman catheter draining red colored urine not clots noted, HS dose of Eliquis was held per orders. Pt given bed bath, tolerated while. Pt turned Q2 with purple wedge and legs elevated on pillows. Pt hopeful for DC for Rehab ([facility])
[2020-09-19 06:50] LABS: HEMATOCRIT 36.1 % (36.0-47.0); RED BLOOD COUNT 3.52 x10^6/uL (3.50-5.40); RED CELL DISTRIBUTION WIDTH 14.8 % (11.5-14.5); WHITE BLOOD COUNT 5.7 x10^3/uL (4.0-11.0)
[2020-09-19 07:08] LABS: CALCIUM 7.9 mg/dL (8.5-10.1); CREATININE 0.8 mg/dL (0.6-1.0); GFR 68.3; POTASSIUM 3.7 mmol/L (3.5-5.1)
[2020-09-19] MEDS: GABAPENTIN 300 MG CAPSULE. PO SCH ×3 (08:14→20:46)
[2020-09-19] MEDS: FUROSEMIDE 40 MG TABLET PO SCH (08:14)
[2020-09-19] MEDS: APIXABAN 5 MG TABLET. PO SCH (08:15)
[2020-09-19] MEDS: FERROUS SULFATE 325 MG TABLET. PO SCH (08:15)
[2020-09-19] MEDS: PROPRANOLOL 10 MG TABLET. PO SCH ×2 (08:15→20:46)
[2020-09-19] MEDS: CHOLECALCIFEROL (VITAMIN D3) 1,000 UNIT TABLET PO SCH (08:15)
[2020-09-19] MEDS: PANTOPRAZOLE 40 MG TABLET. PO SCH (08:16)
[2020-09-19] MEDS: BACLOFEN 10 MG TABLET PO SCH ×3 (08:16→20:47)
[2020-09-19] MEDS: LACTOBACILLUS RHAMNOSUS GG 1 CAPSULE. PO SCH ×2 (08:16→20:46)
[2020-09-19] MEDS: ASPIRIN CHEWABLE 81 MG TABLET. PO SCH (08:16)
[2020-09-19] MEDS: carBAMazepine 200 MG TABLET PO SCH ×2 (08:21→20:47)
[2020-09-19] MEDS: NYSTATIN 100,000 UNITS/ML ORAL SUSPENSION 60ML BOTTLE. PO SCH ×3 (08:21→18:37)
[2020-09-19] MEDS: NYSTATIN TOPICAL POWDER 15GM BOTTLE. TP SCH ×2 (09:15→20:47)
--- NOTE | 2020-09-19 14:31 | PN ---
SUBJECTIVE: The patient is sitting comfortably in her recliner in no apparent respiratory distress. She is definitely more awake and alert, now able to use her right hand and feed herself. The swelling of her legs and the redness has definitely subsided. Her blood pressure is much better now. OBJECTIVE: GENERAL: When I examined her, she looked pale, but no jaundice or cyanosis. No lymphadenopathy, no thyromegaly, no jugular venous distention, no lower limb edema. VITAL SIGNS: Her heart rate was 70, blood pressure was 126/70, temperature was 97, respiratory rate was 18 and oxygen saturation was 97% on 2 liters of oxygen. HEAD, EYES, EARS, NOSE, AND THROAT: Normocephalic, atraumatic. NECK: Supple. HEART: Showed normal first and second heart sounds. No gallop, rub or murmur. CHEST: Clear to auscultation. No crepitation or rhonchi. ABDOMEN: Distended, soft, nontender. NEUROLOGIC: She was awake, alert, responding appropriately. All her cranial nerves intact. She continued to have tremors and weakness in all four limbs. She was evaluated by the physical therapist who recommended long-term facility. LABORATORY DATA: Her lab work this morning showed a white cell count of 6900, hemoglobin 11, hematocrit 33, MCV 104 and platelet count of 130,000. Her chemistry showed a serum sodium of 142, potassium 3.6, chloride 109, bicarbonate 22, anion gap of 11, BUN 21, creatinine was 0.8. Estimated GFR was 68 mL per minute. Her glucose was 75. Her calcium was 7.3. Total bilirubin, AST, ALT, alkaline phosphatase were normal. Total protein 5.9, albumin was 2.5. Serum triglyceride was 47, total cholesterol 100, LDL cholesterol was 48 and HDL cholesterol was 43, the ratio was 2. ASSESSMENT: 1. Right lower extremity cellulitis, resolving. 2. Acute encephalopathy, probably multifactorial including metabolic infectious process, improving. The patient is more awake, alert, responding appropriately. 3. 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 Primidone cannot be given because of interaction with Eliquis and she is already on metoprolol. We will switch her to propranolol. 4. Peripheral neuropathy. I will discontinue vancomycin as her blood cultures so far negative. She has also acute kidney injury that has improved. Her creatinine is down to 0.8. PLAN: My plan is to discontinue the vancomycin given that her cultures are negative, discontinue her IV fluid, continue with the piperacillin. She probably will switch to antibiotic once a day and if she is accepted at [facility], she can be transferred there for further rehabilitation. AUSTIN DR: Sergio TID: [id number]
[2020-09-19] MEDS: TEMAZEPAM 15 MG CAPSULE PO SCH (20:46)
[2020-09-19] MEDS: LISINOPRIL 10 MG TABLET PO SCH (20:47)
[2020-09-20] VITALS (7 sets, daily range): BP systolic 104–153; BP diastolic 51–106
--- NOTE | 2020-09-20 01:41 | PN ---
SUBJECTIVE: The patient denies any new medical or neurological complaints. She eats and drinks well. She stated her tremor has been improved. She denies chest pain, shortness of breath or palpitation, dysarthria, or dysphagia. OBJECTIVE: GENERAL: A well-developed, well-nourished female in no acute distress. VITAL SIGNS: Blood pressure 120/68, respiratory rate 18, pulse is 70, temperature 97.6, oxygen saturation 95% on room air. HEENT: Normocephalic, atraumatic, otherwise unremarkable. NECK: Supple, negative for carotid bruit, lymphadenopathy or thyromegaly. LUNGS: Clear to A and P. CARDIOVASCULAR: Regular rate and rhythm, normal S1, S2. There is no S3, S4, or murmur. ABDOMEN: Soft. Bowel sounds positive. EXTREMITIES: Negative for cyanosis, clubbing. Positive for edema to lower extremities with redness, more prominent on the right side consistent with ongoing cellulitis. NEUROLOGIC: The patient is alert and oriented x3. The speech is fluent. There is no language dysfunction. Memory, judgment and abstracting thinking are fair. The patient denies hallucination or delusion. Cranial nerves are intact. No focal muscle bulk wasting. The strength is 3/5 in the lower extremities and 4/5 in the upper extremities. Sensory examination: Diminished pinprick and light touch senses in patchy distributions in both lower extremities. Deep tendon reflexes were symmetric and hypoactive with absent Achilles responses. Gait not tested. LABORATORY DATA: CBC revealed blood cells of 5.7 thousand, hemoglobin 12, hematocrit 36.1, platelet count 169,000. Chemistry reveals sodium of 142, potassium 3.7, chloride 106, CO2 of 26, BUN 16, creatinine 0.8, glucose 73, calcium 7.9. Bilateral carotid Doppler study revealed bulky calcified bilateral internal carotid arteries due to underlying atherosclerosis with 50% stenosis bilaterally. IMPRESSION: 1. Acute encephalopathy due to underlying infectious -- cellulitis. 2. Mild postural and kinetic tremors of the upper extremities, more prominent on the left side, represent essential tremor/familial tremor. 3. Peripheral neuropathy of the lower extremities. RECOMMENDATIONS: Continue with current management. From a neurologic standpoint, the patient is making good progress. DARIN/XIANG DR: Ritika TID: [id number]
--- NOTE | 2020-09-20 01:54 | NUR ---
Discussed with PT possible DC to [facility] for rehab. PT is ready to go home but said she could go there for a few days. PT calm and cooperative with Q2H turns.
[2020-09-20] MEDS: PIPERACILLIN/TAZOBACTAM 2.25 GM in IV NORMAL SALINE 50ML 50 ML IV SCH ×4 (02:00→19:46)
--- NOTE | 2020-09-20 02:34 | PN ---
DATE: 09/19/2020 SUBJECTIVE: The patient is resting, slightly propped up in bed, in no apparent respiratory distress. She is definitely more awake, alert, responding appropriately. She is able now to feed herself. She continued to have mild hematuria. The erythema of her right lower extremity is subsiding slowly. PHYSICAL EXAMINATION: GENERAL: When I examined her today, she looked well and was clearly in no apparent respiratory distress. She is pale. No jaundice, cyanosis, no lymphadenopathy, no thyromegaly, no jugular venous distention. No lower limb edema. VITAL SIGNS: Her heart rate was 70, blood pressure is 112/68, temperature was 97.2, respiratory rate was 18 and oxygen saturation was 96% on room air. HEAD, EYES, EARS, NOSE, AND THROAT: Normocephalic, atraumatic. NECK: Supple. HEART: Normal first and second heart sounds, no gallop, rub or murmur. CHEST: Clear to auscultation, no crepitation or rhonchi. ABDOMEN: Distended, soft, nontender. NEUROLOGIC: She is definitely more awake, alert, responding appropriately. Cranial nerves intact. She moves upper extremities to much good extent than the lower extremities. She has bilateral footdrop. The erythema particularly the right lower extremity is subsiding slowly. Her intake was 3750, output was 825. LABORATORY DATA: As of this morning, her white cell count was 5700, hemoglobin 12, hematocrit 36, MCV 103 and platelet count of 169,000. Her chemistry showed a serum sodium 142, potassium 3.7, chloride 106, bicarbonate 28, anion gap of 10, BUN 10, creatinine 0.8. Estimated GFR was 68 mL per minute. Her glucose was 73 and calcium was 7.9. ASSESSMENT: 1. Right lower extremity cellulitis, resolving. 2. Acute encephalopathy, probably multifactorial including metabolic as well as infectious process, improving. The patient is definitely more awake, alert, responding appropriately. She is now able to feed herself. 3. 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 Primidone cannot be given because of interaction with Eliquis and she is already on metoprolol. We switched her metoprolol to propranolol. 4. Peripheral neuropathy. PLAN: To continue with IV antibiotic for today and tomorrow. Come Monday. We will decide as her family wanted to go to a snf facility. The patient insists she wants to go home. Either way she would probably needs to continue with oral antibiotic or once a day IV antibiotic. We probably need to continue with indwelling Sherman catheter until her wounds heal. MARYAN DR: Sergio TID: [id number]
[2020-09-20] MEDS: GABAPENTIN 300 MG CAPSULE. PO SCH ×3 (08:17→20:44)
[2020-09-20] MEDS: ASPIRIN CHEWABLE 81 MG TABLET. PO SCH (08:17)
[2020-09-20] MEDS: CHOLECALCIFEROL (VITAMIN D3) 1,000 UNIT TABLET PO SCH (08:17)
[2020-09-20] MEDS: FERROUS SULFATE 325 MG TABLET. PO SCH (08:17)
[2020-09-20] MEDS: PANTOPRAZOLE 40 MG TABLET. PO SCH (08:18)
[2020-09-20] MEDS: BACLOFEN 10 MG TABLET PO SCH ×3 (08:18→20:43)
[2020-09-20] MEDS: FUROSEMIDE 40 MG TABLET PO SCH (08:18)
[2020-09-20] MEDS: PROPRANOLOL 10 MG TABLET. PO SCH ×2 (08:18→20:43)
[2020-09-20] MEDS: carBAMazepine 200 MG TABLET PO SCH ×2 (08:22→20:43)
[2020-09-20] MEDS: LACTOBACILLUS RHAMNOSUS GG 1 CAPSULE. PO SCH ×2 (08:22→20:43)
[2020-09-20] MEDS: NYSTATIN TOPICAL POWDER 15GM BOTTLE. TP SCH ×2 (09:00→20:45)
[2020-09-20] MEDS: ACETAMINOPHEN 325 MG TABLET PO PRN (19:46)
[2020-09-20] MEDS: LISINOPRIL 10 MG TABLET PO SCH (20:43)
--- NOTE | 2020-09-20 22:52 | PN ---
DATE: 09/20/2020 SUBJECTIVE: The patient has been sleepy since this morning, probably as a result of temazepam side effect. OBJECTIVE: GENERAL: A well-developed, well-nourished female, in no acute distress. VITAL SIGNS: Blood pressure 153/103, respiratory rate 18, pulse is 70 and regular, temperature is 97.3, oxygen saturation 92% on room air. HEENT: Normocephalic, atraumatic. NECK: Supple. LUNGS: Clear to A and P. CARDIOVASCULAR: Regular rate and rhythm, normal S1, S2. There is no S3, S4 or murmur. ABDOMEN: Soft. Bowel sounds positive. EXTREMITIES: Mild edema. NEUROLOGIC: The patient is quite sleepy and difficult to arouse. She barely responds to noxious stimuli. Further evaluation is limited at this time because of drowsiness and because of sleepiness. IMPRESSION: 1. Acute encephalopathy -- improved, probably due to underlying infections and metabolic derangement. 2. Cellulitis of the left lower extremity -- markedly improved. 3. Longstanding history of familial tremor. 4. Chronic lower back pain with possible neuropathy and foot drop. 5. Rule out radiculopathy, status post lumbosacral surgery and rule out L4, L5 nerve root radiculopathy. RECOMMENDATIONS: 1. Continue with current medical care initiated by Dr. Pereira. 2. Agree to switch metoprolol to propranolol for tremor and increase her propranolol gradually as needed. 3. Discussed the case with her , Mr. ____ and I recommended to follow up the patient on outpatient basis and possibly doing EMG/NCS of the lower extremities to rule out entrapment neuropathy versus peripheral neuropathy or lumbosacral radiculopathy. I noticed that the patient on carbamazepine, but we will check why the patient is on this medication. 4. We will discontinue temazepam as the patient has quite significant drowsiness. DARIN/KOREY/KIRAN DR: DARIN/woo TID: [id number]
--- NOTE | 2020-09-20 23:30 | PN ---
DATE: 09/20/2020 SUBJECTIVE: The patient is resting, slightly propped up in bed, in no apparent distress. She is definitely more awake, alert and all the swelling and erythema of both lower extremities have largely subsided. Her urine is much clearer. PHYSICAL EXAMINATION: GENERAL: When I examined her, she was pale. No jaundice or cyanosis, no lymphadenopathy, no thyromegaly, no jugular venous distention. No lower limb edema. VITAL SIGNS: Her heart rate was 70, blood pressure is 131/72, temperature was 97.3, respiratory rate was 16 and oxygen saturation 100% on room air. HEAD, EYES, EARS, NOSE AND THROAT: Normocephalic, atraumatic. NECK: Supple. HEART: Normal first and second heart sounds, no gallop or murmur. CHEST: Clear to auscultation. No crepitation or rhonchi. ABDOMEN: Distended, soft, nontender. NEUROLOGIC: She was awake, alert, responding appropriately. All cranial nerves intact. Able to move her upper extremities without difficulty. She has bilateral footdrop. ASSESSMENT: 1. Right lower extremity cellulitis, resolving. 2. Acute encephalopathy, probably multifactorial including metabolic as well as infectious process improving. The patient is definitely more awake, alert, responding appropriately. She is now able to feed herself. 3. 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 Primidone cannot be given because of interaction with Eliquis and she is already on metoprolol. We switched her metoprolol to propranolol for peripheral neuropathy. PLAN: To continue with IV antibiotic. Tomorrow, we will ask surgical intervention therapy to evaluate her and probably switch her to oral antibiotic and discharge her home with home health or to a jail facility which she agreed to go. RACHEL/JOANA DR: Sergio TID: [id number]
[2020-09-21 00:05] VITALS: BP 148/76
[2020-09-21] MEDS: PIPERACILLIN/TAZOBACTAM 2.25 GM in IV NORMAL SALINE 50ML 50 ML IV SCH ×3 (02:01→14:08)
[2020-09-21 03:45] VITALS: BP 160/88
[2020-09-21] MEDS: ACETAMINOPHEN 325 MG TABLET PO PRN ×2 (05:25→16:26)
[2020-09-21 05:42] VITALS: BP 157/94
--- NOTE | 2020-09-21 05:50 | NUR ---
Pt awake in bed watching TV at change of shift. Pt is A&Ox4, cooperative with cares and assessment. Pt ate ice cream for HS snack with set up help only. Pt took pills whole but one at a time. Pt with Sherman catheter, color much improved then previous day, draining straw colored cloudy urine. Pt slept okay during night. Pt requested Tylenol twice on shift for "sore legs". Pt refused bed bath this AM but did wash her face, arm pits and brushed her teeth with set up help. Gown and linens changed. Pt turned Q2 with purple wedge and legs elevated on pillows. Pt hopeful for DC for Rehab possibly today or tomorrow ([facility]).
--- NOTE | 2020-09-21 09:04 | NUR ---
Patient is sleeping, but arousable. Pt is able to feed self now. Pt is hoping to go home but is x2 assist to get out of bed. Wounds healing. PICC line in place, flushes well. WCTM.
[2020-09-21] MEDS: GABAPENTIN 300 MG CAPSULE. PO SCH ×2 (09:11→14:07)
[2020-09-21] MEDS: FUROSEMIDE 40 MG TABLET PO SCH (09:11)
[2020-09-21] MEDS: NYSTATIN TOPICAL POWDER 15GM BOTTLE. TP SCH (09:11)
[2020-09-21] MEDS: ASPIRIN CHEWABLE 81 MG TABLET. PO SCH (09:11)
[2020-09-21] MEDS: CHOLECALCIFEROL (VITAMIN D3) 1,000 UNIT TABLET PO SCH (09:11)
[2020-09-21] MEDS: LACTOBACILLUS RHAMNOSUS GG 1 CAPSULE. PO SCH (09:11)
[2020-09-21] MEDS: carBAMazepine 200 MG TABLET PO SCH (09:12)
[2020-09-21] MEDS: PANTOPRAZOLE 40 MG TABLET. PO SCH (09:12)
[2020-09-21] MEDS: FERROUS SULFATE 325 MG TABLET. PO SCH (09:12)
[2020-09-21] MEDS: BACLOFEN 10 MG TABLET PO SCH ×2 (09:12→14:08)
[2020-09-21] MEDS: PROPRANOLOL 10 MG TABLET. PO SCH (09:12)
--- NOTE | 2020-09-21 09:46 | NUR ---
Patient sitting up in chair. Was able to feed self today and give self medication in applesauce. Pt asking if she can go home today. RN spoke with her about a rehab for strengthening, pt states she feels she can get stronger at home. Has not discussed this with her . ASHLEY.
[2020-09-21 11:15] VITALS: BP 157/94
[2020-09-21 15:11] VITALS: BP 151/78
[2020-09-21] MEDS ORDERED: CEFT1FRO2 IV (16:33)
--- NOTE | 2020-09-21 16:44 | DISCH ---
HOME HEALTH DISCHARGE/MEDS DISCHARGE INFORMATION: Discharge Date: Sep 21, 2020 Final Diagnosis: Problems Medical Problems: (1) Cellulitis Status: Acute (2) Sepsis Status: Acute (3) Stroke Status: Acute Condition on Discharge: Stable CODE STATUS: Code Status: DNR/DNI HOME HEALTH: Face to Face: I certify this patient is under my care and that I, or a nurse practitioner or physician's salon assistant working with me, had a face to face encounter that meets the physician face to face encounter requirements with this patient on 09/21/2020 Medical Condition(s): Other Physical Therapy For: Evalulation/Treatment Occupational Therapy For: Evaluation/Treatment POST DISCHARGE ORDERS: Activity Instructions for Disc: Resume previous activity DIET AFTER DISCHARGE: ADA CERTIFICATION STATEMENT: Certification Statement: Based on the above finding, I certify that this patient is confined to the home and needs intermittent mcc care, physical t herapy and/or speech therapy, or continues to need occupational therapy.~ This patient is under my care, and I have initiated the establishment of the plan of care.~ This patient will be followed by myself or a community physician who will periodically review the plan of care. DISCHARGE MEDICATIONS: Home Meds Active Scripts Ceftriaxone Na/Dextrose,Iso (CEFTRIAXONE 1 GM PIGGYBACK) 1 Gm/50 Ml Froz.piggy, 1 GM IV DAILY PRN for ellulitis for 5 Days, #5 EACH Prov:MIRTA MCKEON MD 09/21/20 Reported Medications Nystatin (NYSTATIN) 15 Gm Powder, 1 ROSMERY TP BID for breast rash for 7 Days, #1 BOTTLE 0 Refills apply to affected area(s) 09/16/20 Temazepam (TEMAZEPAM) 15 Mg Capsule, 1 CAP PO QHS for INSOMNIA, #30 CAP 1 Refill 09/16/20 Ramipril (RAMIPRIL) 5 Mg Capsule, 1 CAP PO HS for HTN for 30 Days, #30 CAP 0 Refills 09/16/20 Pantoprazole Sodium (PANTOPRAZOLE SODIUM) 40 Mg Tablet.dr, 1 TAB PO DAILY for GE RD, #30 TAB 3 Refills 09/16/20 Nystatin (NYSTATIN) 100,000 Unit/1 Ml Oral.susp, 5 ML PO QID for REDNESS, #200 ML 09/16/20 Metoprolol Succinate (METOPROLOL SUCCINATE ( XL )) 25 Mg Tab.er.24h, 1 TAB PO DAILY for HIGH BLOOD PRESSURE, #30 TAB 5 Refills 09/16/20 Gabapentin (GABAPENTIN) 600 Mg Tablet, 600 MG PO TID for NEUROGENIC PAIN, TAB 09/16/20 Furosemide (FUROSEMIDE) 40 Mg Tablet, 1 TAB PO DAILY for DIURETIC, #30 TAB 5 Refills 09/16/20 Ferrous Sulfate (FERROUS SULFATE) 325 Mg Tablet, 1 TAB PO DAILY for SUPPLEMENT, #30 TAB 3 Refills 09/16/20 Carbamazepine (EPITOL) 200 Mg Tablet, 200 MG PO BID for ANTICONVULSANT, TAB 09/16/20 Apixaban (ELIQUIS) 5 Mg Tablet, 5 MG PO BID for BLOOD THINNER, TAB 09/16/20 Cholecalciferol (Vitamin D3) (Dialyvite Vitamin D) 125 Mcg Capsule, 125 MCG PO DAILY for SUPPLEMENT, CAP 09/16/20 Baclofen (BACLOFEN) 10 Mg Tablet, 5 MG PO TID for MUSCLE RELAXER, #30 TAB 0 Refills 09/16/20 Aspirin (ASPIRIN) 81 Mg Tab.chew, 81 MG PO DAILY for BLOOD THINNER, TAB 09/16/20 Acetaminophen (ACETAMINOPHEN) 325 Mg Tablet, 325-650 MG PO PRN Q6HRS PRN for MILD PAIN / TEMP > 100.3'F, TAB 09/16/20 MIRTA MCKEON MD Sep 21, 2020 16:43
--- NOTE | 2020-09-21 18:32 | NUR ---
Patient is discharging home with [facility]. [facility] declined patient and did not want to send patient to [facility] or [facility]. Propranolol and keflex called into [facility]. PICC removed with dressing placed over site. Patient and instructed not to remove until tomorrow at 1700. Pt escorted out by spouse and HOME THEATER SPECIALIST via wheelchair. and patient agrees with discharge plan.
--- NOTE | 2020-09-22 02:17 | PN ---
DATE: 09/21/2020 SUBJECTIVE: The patient denies any medical or neurological complaints. She eats and drinks well. She continues to have mild tremor of the upper extremities. She denies chest pain, shortness of breath or palpitation, dysarthria or dysphagia. OBJECTIVE: GENERAL: Well-developed, well-nourished female, not in acute distress. VITAL SIGNS: Blood pressure is 157/94, respiratory rate 12, pulse is 70 and regular, oxygen saturation is 93% on room air. HEENT: Normocephalic, atraumatic, otherwise unremarkable. NECK: Supple, negative for carotid bruit, lymphadenopathy or thyromegaly. LUNGS: Clear to A and P. CARDIOVASCULAR: Regular rate and rhythm, normal S1, S2. ABDOMEN: Soft. Bowel sounds positive. EXTREMITIES: Negative for cyanosis or edema. NEUROLOGICAL: Mental status: The patient is alert and oriented to x2. She is disoriented to date. Speech is fluent. There is no language dysfunction. Memory, judgment and abstracting thinking are fair. The patient denies hallucination or delusion. Cranial nerves are intact. No focal muscle bulk wasting. The strength is 4/5 throughout. The patient has a footdrop bilaterally. Sensory examination revealed diminished pinprick and light touch senses in patchy distributions in both lower extremities. Deep tendon reflexes were symmetric and hypoactive with absent Achilles responses. Gait not performed. IMPRESSION: 1. Acute encephalopathy, probably secondary to metabolic and infectious process -- resolved. 2. Familial tremor -- some improvement with Inderal. 3. Chronic lower back pain with radiculopathy. RECOMMENDATIONS: 1. Continue with current management initiated by Dr. Pereira. 2. The patient need physical therapy and rehabilitation. 3. Follow up in [facility] for further neurological workup as stated before. DARIN/MARVIN/VICKI DR: DARIN/woo TID: [id number]
[2020-09-30] MEDS ORDERED: LISI20TA18 PO (12:52)
[2020-09-30] MEDS ORDERED: PROP20TA PO (12:52)
[2020-09-30] MEDS ORDERED: CEPH500T PO (12:52)
== END 2020-09-21 18:34 | disposition home health service (06) | DRG 871 ==
LOC: ER 12:00 → ICU 14:42
PROVIDERS: ADMIT Internal Medicine; ATTEND Internal Medicine
PROC: 02HV33Z Insertion of Infusion Device into Superior Vena Cava, Percutaneous Approach (ICD-10-PCS; principal; 2020-09-16)
DX: A41.9 Sepsis, unspecified organism (principal); G93.41 Metabolic encephalopathy; L03.115 Cellulitis of right lower limb; L03.116 Cellulitis of left lower limb; N17.9 Acute kidney failure, unspecified; G25.0 Essential tremor; G62.9 Polyneuropathy, unspecified; G89.29 Other chronic pain; I10 Essential (primary) hypertension; I48.91 Unspecified atrial fibrillation; M21.371 Foot drop, right foot; M21.372 Foot drop, left foot; R29.6 Repeated falls; Z95.0 Presence of cardiac pacemaker; K21.9 Gastro-esophageal reflux disease without esophagitis; E86.0 Dehydration; G20 Parkinson's disease
CPT/HCPCS: 36415; 70450; 71045; 80048; 80053; 80061; 83605; 85007; 85025; 85027; 87040; 93005; 93880; 96365; J2543; J3370; J7040; J7050; 97530; 97535; 99291-25; J7030

== ENCOUNTER 2020-09-25 17:21 | Inpatient (IN) | payer MEDICARE, OTHER ==
[~2020-09-25] VITALS: Ht 157.5 cm; Wt 73.0 kg
[~2020-09-25 17:21] MED LIST: ACET325T21 PO; APIX5TAB3 PO; ASPI-630 PO; BACL10TA PO; CARB200T3 PO; CEFT1FRO2 IV; CHOL50003 PO; FERR325T14 PO; FURO40TA4 PO; GABA600T7 PO; METO-239 PO; NYST1000 PO; NYST15PO9 TP; PANT40TA6 PO; RAMI5CAP50 PO; TEMA15CA PO
--- NOTE | 2020-09-25 18:12 | PHYS DOC ---
Past History Additional Past Medical Histor: pacemaker (EUGENIO TORRES APRN) Past Surgical History: Pacemaker (EUGENIO TORRES APRN) Alcohol Use: None (EUGENIO TORRES APRN) General Adult EDM: Chief Complaint: LOWER EXTREMITY EDEMA HPI: HPI: Patient is an 85-year-old female being seen with increased edema to her b ilateral lower extremities with increased pain and redness and bilateral hand swelling. Patient was admitted for cellulitis and discharged on September 22. Patient was discharged with Keflex but she is unsure if she filled the prescription. Patient rates her pain 3 out of 10. Patient denies shortness of breath, chest pain, decreased sensation in her lower/upper extremities, decrease d range of motion of hands. In the ER today she has a temp of 99.4. Patient has a history of sepsis, CVA, hypertension, A. fib, CHF. (EUGENIO TORRES APRN) Review of Systems: Review of Systems: 14 body systems of the review of systems have been reviewed. See HPI for pertinent positive and negative responses, otherwise all other systems are negative, nonpertinent or noncontributory (EUGENIO TORERS APRN) Allergies: Allergies: Allergies Coded Allergies Type Severity Reaction Last Updated Verified No Known Drug Allergies 09/25/20 No (EUGENIO TORRES APRN) Physical Exam: PE: Constitutional: Well developed, well nourished, no acute distress, non-toxic appearance. [] HENT: Normocephalic, atraumatic Eyes: PERRL, conjunctiva normal, no discharge. [] Neck: Normal range of motion, no stridor Cardiovascular:Heart rate regular rhythm, no murmur [] Lungs & Thorax: Bilateral breath sounds clear to auscultation [] Abdomen: Bowel sounds normal, soft, no tenderness, no masses, no pulsatile masses. [] Skin: Warm, dry, no rash, erythema noted to bilateral lower extremities, no visible wounds. [] Back: No tenderness Extremities: No tenderness, no cyanosis, no clubbing, 3+ pitting edema to bilateral lower extremities, 2+ DP and PT pulses, bilateral foot drop, limited mobility of bilateral lower extremities, edema noted to bilateral hands, good range of motion of hands and fingers, patient reports that sensation is intact to bilateral upper and lower extremities. Neurologic: Alert and oriented X 3, normal motor function, normal sensory function, no focal deficits noted. [] Psychologic: Affect normal, judgement normal, mood normal. [] (EUGENIO TORRES APRN) Current Patient Data: Labs: Laboratory Tests Test 09/25/20 09:52 09/25/20 18:52 Troponin I Quantitative < 0.017 ng/mL White Blood Count 9.8 x10^3/uL Red Blood Count 4.01 x10^6/uL Hemoglobin 13.8 g/dL Hematocrit 40.9 % Mean Corpuscular Volume 102 fL Mean Corpuscular Hemoglobin 34 pg Mean Corpuscular Hemoglobin Concent 34 g/dL Red Cell Distribution Width 14.4 % Platelet Count 358 x10^3/uL Neutrophils (%) (Auto) 79 % Lymphocytes (%) (Auto) 13 % Monocytes (%) (Auto) 6 % Eosinophils (%) (Auto) 1 % Basophils (%) (Auto) 1 % Neutrophils # (Auto) 7.8 x10^3uL Lymphocytes # (Auto) 1.3 x10^3/uL Monocytes # (Auto) 0.6 x10^3/uL Eosinophils # (Auto) 0.1 x10^3/uL Basophils # (Auto) 0.1 x10^3/uL Sodium Level 139 mmol/L Potassium Level 3.9 mmol/L Chloride Level 99 mmol/L Carbon Dioxide Level 32 mmol/L Anion Gap 8 Blood Urea Nitrogen 10 mg/dL Creatinine 0.8 mg/dL Estimated GFR (Cockcroft-Gault) 68.3 BUN/Creatinine Ratio 13 Glucose Level 96 mg/dL Lactic Acid Level 1.7 mmol/L Calcium Level 9.2 mg/dL Total Bilirubin 0.7 mg/dL Aspartate Amino Transf (AST/SGOT) 18 U/L Alanine Aminotransferase (ALT/SGPT) 16 U/L Alkaline Phosphatase 97 U/L [id number]-Type Natriuretic Peptide 7374 pg/mL Total Protein 8.1 g/dL Albumin 3.7 g/dL Albumin/Globulin Ratio 0.8 Vital Signs: Vital Signs Date Time Temp Pulse Resp B/P (MAP) Pulse Ox O2 Delivery O2 Flow Rate FiO2 09/25/20 17:45 99.4 70 20 163/94 94 Room Air (EUGENIO TORRES APRN) EKG: EKG: EKG performed by ER staff at 1810 shows paced rhythm, no STEMI as read by Dr. Angulo 1817. [] (EUGENIO TORRES APRN) Radiology/Procedures: Radiology/Procedures: []PROCEDURE: PORTABLE CHEST 1V AP chest. HISTORY: Bilateral lower extremity edema, short of breath AP view was taken of the chest. There is a left pacemaker with 2 leads. Patient had previous thoracic spine surgery. There are no acute infiltrates. Heart is normal in size. There is no effusion. IMPRESSION: 1. No acute infiltrates. Electronically signed by: Yordy Parry MD (09/25/2020 6:23 PM) [facility] DICTATED AND SIGNED BY: YORDY PARRY MD DATE: 09/25/201821 CC: FRANCI GONZALEZ; EUGENIO TORRES APRN ~MTH0 0 (EUGENIO TORRES APRN) Heart Score: C/O Chest Pain: No Risk Factors: Risk Factors: DM, Current or recent (<one month) smoker, HTN, HLP, family history of CAD, obesity. Risk Scores: Score 0 - 3: 2.5% MACE over next 6 weeks - Discharge Home Score 4 - 6: 20.3% MACE over next 6 weeks - Admit for Clinical Observation Score 7 - 10: 72.7% MACE over next 6 weeks - Early Invasive Strategies (EUGENIO TORRES APRN) Course & Med Decision Making: Course & Med Decision Making Pertinent Labs and Imaging studies reviewed. (See chart for details) Patient is an 85-year-old female being seen in the ER today for bilateral lower extremity swelling, redness, pain and bilateral hand swelling. Work-up in the ER consisted of blood work, chest x-ray, EKG. patient does not have elevated WBC. She does have an elevated BNP. Negative for lactic acidosis. Chest x-ray negative for any acute findings. Patient states that her bilateral lower extremity and hand swelling is worse than what it was when she was discharged from the hospital. She also reports that the redness and pain in her bilateral lower extremities is worse. Patient is having difficulty ambulating due to the pain. I discussed patient's case with supervising physician and admitting physician, Dr. Jones. Patient will be admitted under Dr. Jones's service for cellulitis and lower extremity edema. Patient treated with Lasix and vancomycin per Dr. Jones. I discussed all patient's findings with her. She is agreeable to plan of care. Care transferred at this time 2041 (EUGENIO TORRES APRN) Course & Med Decision Making Did not see or evaluate patient. Agree with INTEGRATION ANALYST's work-up and disposition per note. (JUAN JOAQUIN MD) Dragon Disclaimer: Dragon Disclaimer: This electronic medical record was generated, in whole or in part, using a voice recognition dictation system. (EUGENIO TORRES APRN) Departure Departure: Impression: Primary Impression: Cellulitis Qualified Codes: L03.119 - Cellulitis of unspecified part of limb Additional Impression: Lower extremity edema Disposition: ADMITTED INPATIENT Admitting Physician: Marcel Jones (EUGENIO TORRES APRN) Condition: STABLE Referrals: FRANCI GONZALEZ (PCP) EUGENIO TORRES APRN Sep 25, 2020 18:12 JUAN JOAQUIN MD Sep 25, 2020 21:57
--- NOTE | 2020-09-25 18:25 | RAD ---
AP chest. HISTORY: Bilateral lower extremity edema, short of breath AP view was taken of the chest. There is a left pacemaker with 2 leads. Patient had previous thoracic spine surgery. There are no acute infiltrates. Heart is normal in size. There is no effusion. IMPRESSION: 1. No acute infiltrates. Electronically signed by: Yordy Parry MD (09/25/2020 6:23 PM) [facility]
[2020-09-25 19:27] LABS: BASO # 0.1 x10^3/uL (0.0-0.2); BASO % 1 % (0-3); EOS # 0.1 x10^3/uL (0.0-0.7); EOS % 1 % (0-3); HEMATOCRIT 40.9 % (36.0-47.0); HEMOGLOBIN 13.8 g/dL (12.0-15.5); LYMPH # 1.3 x10^3/uL (1.0-4.8); LYMPH % 13 % (24-48); MEAN CORPUSCULAR HEMOGLOBIN 34 pg (25-35); MEAN CORPUSCULAR HGB CONC 34 g/dL (31-37); MEAN CORPUSCULAR VOLUME 102 fL (79-100); MONO # 0.6 x10^3/uL (0.0-1.1); MONO % 6 % (0-9); NEUT # 7.8 x10^3uL (1.8-7.7); NEUT % 79 % (31-73); PLATELET COUNT 358 x10^3/uL (140-400); RED BLOOD COUNT 4.01 x10^6/uL (3.50-5.40); RED CELL DISTRIBUTION WIDTH 14.4 % (11.5-14.5); WHITE BLOOD COUNT 9.8 x10^3/uL (4.0-11.0)
[2020-09-25 19:28] LABS: CALCIUM 9.2 mg/dL (8.5-10.1); CREATININE 0.8 mg/dL (0.6-1.0); GFR 68.3; POTASSIUM 3.9 mmol/L (3.5-5.1)
[2020-09-25 19:40] LABS: ALBUMIN 3.7 g/dL (3.4-5.0); ALBUMIN/GLOBULIN RATIO 0.8 (1.0-1.7); TOTAL BILIRUBIN 0.7 mg/dL (0.2-1.0); TOTAL PROTEIN 8.1 g/dL (6.4-8.2)
[2020-09-25] MEDS ORDERED: VANCOMYCIN 1 GM in IV NORMAL SALINE 250ML 250 ML IV ONE (20:30)
[2020-09-25] MEDS ORDERED: FUROSEMIDE 40 MG/4 ML VIAL IVP ONE (20:30)
[2020-09-25] MEDS ORDERED: VANCOMYCIN 1.75 GM in IV NORMAL SALINE 500ML 500 ML IV ONE (21:00)
[2020-09-25 22:48] VITALS: BP 171/90
--- NOTE | 2020-09-25 23:14 | NUR ---
The patient, CANDELARIA LUGO, 85 y/o, F admitted by MAKENNA ELIZABETH MD, was given written information regarding hospital policies, unit procedures and contact persons. Valuables were checked and remained with patient. Medications sent to pharmacy per orders.
[2020-09-25] MEDS ORDERED: TEMAZEPAM 7.5 MG CAPSULE PO PRN (23:30)
[2020-09-25] MEDS: TEMAZEPAM 7.5 MG CAPSULE PO SCH (23:36)
[2020-09-25] MEDS: APIXABAN 5 MG TABLET. PO SCH (23:37)
[2020-09-25] MEDS: LISINOPRIL 10 MG TABLET PO SCH (23:37)
[2020-09-25] MEDS: ACETAMINOPHEN 325 MG TABLET PO PRN (23:37)
--- NOTE | 2020-09-26 05:26 | NUR ---
Nursing note: On assessment, pt has multiple wounds. BLE 3+ edema; LLE has wound on posterior calf; groin/inner thighs bilaterally excoriated and red; bilat buttocks excoriated, red, nonblanchable, with open areas; fold under bilat breasts red/open. Aforementioned wounds photographed and in chart. Pt skin very thin, fragile. Pt also inc bowel and bladder, purewick external catheter emptying urine well throughout shift (see I&O).
[2020-09-26] MEDS: ACETAMINOPHEN 325 MG TABLET PO PRN ×2 (06:05→16:37)
[2020-09-26] MEDS: PANTOPRAZOLE 40 MG TABLET. PO SCH (06:05)
[2020-09-26] MEDS ORDERED: FUROSEMIDE 40 MG/4 ML VIAL IVP ONE (07:00)
[2020-09-26 07:04] VITALS: BP 144/67
[2020-09-26 07:30] LABS: BASO # 0.1 x10^3/uL (0.0-0.2); BASO % 1 % (0-3); EOS # 0.1 x10^3/uL (0.0-0.7); EOS % 1 % (0-3); HEMATOCRIT 38.3 % (36.0-47.0); HEMOGLOBIN 12.7 g/dL (12.0-15.5); LYMPH # 1.2 x10^3/uL (1.0-4.8); LYMPH % 15 % (24-48); MEAN CORPUSCULAR HEMOGLOBIN 34 pg (25-35); MEAN CORPUSCULAR HGB CONC 33 g/dL (31-37); MEAN CORPUSCULAR VOLUME 102 fL (79-100); MONO # 0.6 x10^3/uL (0.0-1.1); MONO % 7 % (0-9); NEUT % 75 % (31-73); PLATELET COUNT 334 x10^3/uL (140-400); RED BLOOD COUNT 3.75 x10^6/uL (3.50-5.40); RED CELL DISTRIBUTION WIDTH 14.3 % (11.5-14.5); WHITE BLOOD COUNT 7.9 x10^3/uL (4.0-11.0)
[2020-09-26 07:53] LABS: ALBUMIN 3.2 g/dL (3.4-5.0); ALBUMIN/GLOBULIN RATIO 0.8 (1.0-1.7); CALCIUM 8.8 mg/dL (8.5-10.1); CREATININE 0.7 mg/dL (0.6-1.0); GFR 79.7; POTASSIUM 3.3 mmol/L (3.5-5.1); TOTAL BILIRUBIN 0.7 mg/dL (0.2-1.0); TOTAL PROTEIN 7.2 g/dL (6.4-8.2)
[2020-09-26] MEDS: CHOLECALCIFEROL (VITAMIN D3) 1,000 UNIT TABLET PO SCH (08:29)
[2020-09-26] MEDS: BACLOFEN 10 MG TABLET PO SCH ×3 (08:29→20:35)
[2020-09-26] MEDS: FERROUS SULFATE 325 MG TABLET. PO SCH (08:29)
[2020-09-26] MEDS: carBAMazepine 200 MG TABLET PO SCH ×2 (08:29→20:35)
[2020-09-26] MEDS: APIXABAN 5 MG TABLET. PO SCH ×2 (08:29→20:35)
[2020-09-26] MEDS: METOPROLOL SUCC 24HR ER 25 MG TAB.ER.24H. PO SCH (08:30)
[2020-09-26] MEDS: NYSTATIN 100,000 UNITS/ML ORAL SUSPENSION 60ML BOTTLE. PO SCH ×4 (08:30→20:36)
[2020-09-26] MEDS ORDERED: NYSTATIN TOPICAL POWDER 15GM BOTTLE. TP SCH (09:00)
[2020-09-26] MEDS ORDERED: MAGNESIUM SULFATE 1GM 100 ML IV ONE (09:30)
--- NOTE | 2020-09-26 09:56 | HP ---
ADMIT DATE: 09/25/2020 ATTENDING PHYSICIAN: Dr. Jones. SUBJECTIVE: Leg swelling. HISTORY OF PRESENT ILLNESS: The patient is an 85-year-old female with increased swelling of both lower extremities, redness and erythema. She was just hospitalized by Dr. Pereira last week, discharged home on 09/22/2020, she was given prescription for Keflex. I do not think she ever got it filled. She has limited capability. She is in a wheelchair. She is nonambulatory. Today, her legs are swollen. There is significant, 4+ pitting edema extending up to her thighs. She has redness and cellulitis consistent with stasis dermatitis and cellulitis refractory to noncompliance. Therefore, she is admitted. Vancomycin was started. Diuretics have been started along with daily weights and fluid restriction. PAST MEDICAL HISTORY: Significant for chronic congestive heart failure, old stroke, hypertension, paroxysmal atrial fibrillation and permanent pacemaker. Current medications are reviewed, how compliant with these meds is questionable. She lives with her elderly who has limited capabilities. She was scheduled to take Eliquis 5 mg b.i.d., Tylenol, aspirin, baclofen, carbamazepine, cholecalciferol, ferrous sulfate, Lasix, Neurontin, metoprolol, nystatin, Protonix, Altace and Restoril at bedtime. ALLERGIES: She has no known drug allergies. SOCIAL HISTORY: She is a nonsmoker, nondrinker. FAMILY HISTORY: Mom of breast cancer complicated at age 66. Father of heart attack at age 62. She is retired, lives with her . REVIEW OF SYSTEMS: Significant for generalized debilitation. She gets around in a wheelchair. She can transfer with some assistance. She is nonambulatory. All other systems reviewed and turned to be negative. PHYSICAL EXAMINATION: GENERAL: When I saw her, this is a pleasant, but confused elderly female. VITAL SIGNS: Initial vital signs showed blood pressure 163/94, temperature 99.4 degrees Fahrenheit, oxygen saturation 94% on room air. HEENT: Head is without trauma. Pupils are reactive. Sclerae nonicteric. Oropharynx is clear. NECK: Supple, no bruits identified. LUNGS: Good breath sounds. CARDIOVASCULAR: Showed distant heart tones. No gallops. ABDOMEN: Soft, obese, protuberant. No organomegaly. EXTREMITIES: Show 4+ pitting edema extending all the way up to her thighs. There is bilateral redness and erythema of the skin below both knees consistent with stasis dermatitis and localized cellulitis. NEUROLOGIC FINDINGS: Speech is fluent. No focal deficit. She is nonambulatory. SKIN: Otherwise, warm and dry. PERTINENT LABORATORY STUDIES: Hemoglobin 13.8 grams per deciliter with a white count of 9800. Electrolytes: Sodium 139 mg, potassium 3.9 mEq. Cardiac enzymes negative for coronary ischemia. BNP was 7374. ASSESSMENT: 1. An 85-year-old female with bilateral cellulitis. 2. Acute on chronic congestive heart failure. 3. Generalized debilitation. 4. Stasis dermatitis. PLAN: 1. Admit to the inpatient unit. 2. Diuresis with Lasix twice a day. 3. 1200 mL daily fluid restriction. 4. Empiric vancomycin. 5. Serial chemistries. 6. Potassium and magnesium replacement. 7. She is a DNR per advanced directive, we will respect her wishes. GORDON DR: Doni TID: [id number] CC: MITZI FELICIANO MD
[2020-09-26] MEDS: POTASSIUM CHLORIDE 20 MEQ TABLET.ER. PO SCH (10:50)
[2020-09-26] MEDS: NYSTATIN TOPICAL POWDER 15GM BOTTLE. TP SCH ×2 (10:54→20:36)
[2020-09-26 12:04] VITALS: BP 116/68
[2020-09-26 15:47] VITALS: BP 152/73
--- NOTE | 2020-09-26 17:09 | NUR ---
SHIFT NOTE Pt continues to complain of muscle spasms in legs. Meds given, SEE EMAR. Pt on bedrest at this time but this RN was able to work with pt to do legs exercises in bed multiple times throughout day. Pt states the leg exercises help with her leg spasms. Olimpiawick continues to be successful for patient, SEE I and Os. Pt wishing to return home but and daughter suggesting rehab facility after discharge from hospital. Will continue to monitor. CC, RN
[2020-09-26 18:56] VITALS: BP 117/74
[2020-09-26] MEDS: LISINOPRIL 10 MG TABLET PO SCH (20:35)
[2020-09-26] MEDS: TEMAZEPAM 7.5 MG CAPSULE PO SCH (20:35)
--- NOTE | 2020-09-26 21:08 | NUR ---
Pt asked if she can get up and sit in a chair. Pt is completely bedbound. When this nurse told pt that she states, "Well I guess I wouldn't want to hurt you." This nurse tried to reposition pt into the chair position with the bed but pt did not like it.
[2020-09-26 22:47] VITALS: BP 162/85
[2020-09-27 05:09] VITALS: BP 174/90
[2020-09-27] MEDS: PANTOPRAZOLE 40 MG TABLET. PO SCH (05:59)
[2020-09-27 07:31] LABS: ALBUMIN 3.5 g/dL (3.4-5.0); ALBUMIN/GLOBULIN RATIO 0.8 (1.0-1.7); CALCIUM 9.1 mg/dL (8.5-10.1); CREATININE 0.9 mg/dL (0.6-1.0); GFR 59.7; POTASSIUM 4.3 mmol/L (3.5-5.1); TOTAL BILIRUBIN 0.8 mg/dL (0.2-1.0); TOTAL PROTEIN 7.9 g/dL (6.4-8.2)
[2020-09-27] MEDS: BACLOFEN 10 MG TABLET PO SCH ×3 (07:32→20:42)
[2020-09-27] MEDS: APIXABAN 5 MG TABLET. PO SCH ×2 (08:48→20:42)
[2020-09-27] MEDS: POTASSIUM CHLORIDE 20 MEQ TABLET.ER. PO SCH (08:48)
[2020-09-27] MEDS: FERROUS SULFATE 325 MG TABLET. PO SCH (08:49)
[2020-09-27] MEDS: carBAMazepine 200 MG TABLET PO SCH ×2 (08:49→20:41)
[2020-09-27] MEDS: METOPROLOL SUCC 24HR ER 25 MG TAB.ER.24H. PO SCH (08:49)
[2020-09-27] MEDS: CHOLECALCIFEROL (VITAMIN D3) 1,000 UNIT TABLET PO SCH (08:49)
[2020-09-27] MEDS: NYSTATIN 100,000 UNITS/ML ORAL SUSPENSION 60ML BOTTLE. PO SCH ×4 (08:49→20:43)
[2020-09-27] MEDS: NYSTATIN TOPICAL POWDER 15GM BOTTLE. TP SCH ×2 (08:50→20:43)
[2020-09-27] MEDS: ACETAMINOPHEN 325 MG TABLET PO PRN ×3 (08:52→16:35)
--- NOTE | 2020-09-27 10:26 | PN ---
DATE: 09/27/2020 ATTENDING PHYSICIAN: Dr. Jones. SUBJECTIVE: The patient is alert. She remains very weak and bedridden. OBJECTIVE FINDINGS: VITAL SIGNS: Blood pressure this morning is 162/85, pulse is 70 and regular, temperature is 98.2 degrees Fahrenheit. HEENT: Head is without trauma. Pupils are reactive. Sclerae is nonicteric. The oropharynx is clear. NECK: Supple, no bruits. LUNGS: Good breath sounds. CARDIOVASCULAR: Regular heart tones. ABDOMEN: Soft. EXTREMITIES: Show 3+ pitting edema. It is less edematous, redness and erythema has improved. NEUROLOGIC: Focally intact. She remains bedridden. LABORATORY STUDIES: Her hemoglobin was 12.7 grams yesterday. Chemistry today, potassium has been replaced to 4.3 mEq per liter. Creatinine is the same at 0.9 mg/dL. Sodium 138 mEq/L, BUN is 12. ASSESSMENT: 1. This 85-year-old female has stasis dermatitis. 2. Acute on chronic congestive heart failure, compensated. 3. Generalized debilitation. 4. Essential tremor. PLAN: 1. Continue preload reduction with Lasix twice a day. 2. Increase afterload reduction. I will increase her lisinopril. 3. Daily weights. 4. 1200 mL fluid restriction. 5. Empiric vancomycin for infection. 6. Serial chemistries. 7. Potassium and magnesium replacement. 8. She is a DNR per advanced directive. 9. We had a long discussion. She is not facing reality. She needs a higher level of care at the time of discharge. Whether she is agreeable to go to subacute rehab in a jail remains to be seen. There is no family here because of COVID restrictions. BABAK/YONAS DR: Doni TID: [id number] CC: MITZI FELICIANO MD
[2020-09-27 11:21] VITALS: BP 158/78
[2020-09-27] MEDS: VANCOMYCIN 1 GM in IV NORMAL SALINE 250ML 250 ML IV SCH ×2 (11:24→20:43)
[2020-09-27 15:00] VITALS: BP 197/100
[2020-09-27] MEDS ORDERED: FUROSEMIDE 80 MG TABLET PO ONE (17:45)
--- NOTE | 2020-09-27 17:48 | NUR ---
Pt blood pressure elevated on afternoon check, prn tylenol administered and pt repositioned. Pt given time and blood pressure rechecked. pt blood pressure still elevated. 193/93 RUE, 218/[address] ELIZABETH, medication orders received.
[2020-09-27] MEDS ORDERED: FUROSEMIDE 100 MG/10 ML VIAL IVP ONE (18:00)
[2020-09-27] MEDS: LISINOPRIL 20 MG TABLET PO SCH (18:02)
[2020-09-27 19:30] VITALS: BP 159/89
[2020-09-27] MEDS: TEMAZEPAM 7.5 MG CAPSULE PO SCH (20:42)
[2020-09-27] MEDS ORDERED: LISINOPRIL 10 MG TABLET PO SCH (21:00)
[2020-09-28 06:28] VITALS: BP 152/86
[2020-09-28] MEDS: PANTOPRAZOLE 40 MG TABLET. PO SCH (08:13)
[2020-09-28] MEDS: CHOLECALCIFEROL (VITAMIN D3) 1,000 UNIT TABLET PO SCH (08:14)
[2020-09-28] MEDS: BACLOFEN 10 MG TABLET PO SCH ×3 (08:14→20:40)
[2020-09-28] MEDS: APIXABAN 5 MG TABLET. PO SCH ×2 (08:14→20:40)
[2020-09-28] MEDS: POTASSIUM CHLORIDE 20 MEQ TABLET.ER. PO SCH (08:14)
[2020-09-28] MEDS: LISINOPRIL 20 MG TABLET PO SCH ×2 (08:15→20:39)
[2020-09-28] MEDS: carBAMazepine 200 MG TABLET PO SCH ×2 (08:15→20:39)
[2020-09-28] MEDS: METOPROLOL SUCC 24HR ER 25 MG TAB.ER.24H. PO SCH (08:16)
[2020-09-28] MEDS: FERROUS SULFATE 325 MG TABLET. PO SCH (08:16)
[2020-09-28] MEDS: NYSTATIN TOPICAL POWDER 15GM BOTTLE. TP SCH ×2 (08:17→20:39)
[2020-09-28] MEDS: NYSTATIN 100,000 UNITS/ML ORAL SUSPENSION 60ML BOTTLE. PO SCH ×4 (08:17→20:39)
[2020-09-28] MEDS: VANCOMYCIN 1 GM in IV NORMAL SALINE 250ML 250 ML IV SCH ×2 (09:48→20:41)
[2020-09-28 11:11] VITALS: BP 132/82
--- NOTE | 2020-09-28 12:07 | EKG ---
[address] [address] Test Date: 2020-09-25 Test Time: 18:10:47 Pat Name: CANDELARIA LUGO Department: Room: Gender: F [employer] Operator: JASPREET : 1935 Requested By: EUGENIO TORRES Order Number: [id number] Reading MD: Measurements Intervals [place] Rate: 72 P: NM: QRS: -66 QRSD: 116 T: 114 QT: 438 QTc: 481 Interpretive Statements IRREGULAR RHYTHM, NO P-WAVE FOUND ABNORMAL LEFT AXIS DEVIATION LVH WITH REPOLARIZATION ABNORMALITY QRS(T) CONTOUR ABNORMALITY CONSIDER ANTEROLATERAL MYOCARDIAL DAMAGE CONSISTENT WITH INFERIOR INFARCT PROBABLY OLD ABNORMAL ECG RI6.02 No previous ECG available for comparison
[2020-09-28 13:11] VITALS: BP 140/83
--- NOTE | 2020-09-28 13:18 | EKG ---
[address] [address] Test Date: 2020-09-25 Test Time: 21:17:49 Pat Name: CANDELARIA LUGO Department: Room: 111 A Gender: F [employer]: : 1935 Requested By: EUGENIO TORRES Order Number: [id number] Reading MD: Measurements Intervals [place] Rate: 78 P: 0 [place]: 286 QRS: 259 QRSD: 144 T: 112 QT: 456 QTc: 524 Interpretive Statements SINUS RHYTHM VENTRICULAR PREMATURE COMPLEX(ES) PROLONGED [place] INTERVAL ABNORMAL RIGHT SUPERIOR AXIS DEVIATION NON SPECIFIC INTRAVENTRICULAR BLOCK QRS(T) CONTOUR ABNORMALITY CONSIDER INFERIOR INFARCT ABNORMAL ECG RI6.02 No previous ECG available for comparison
[2020-09-28 15:42] LABS: ALBUMIN/GLOBULIN RATIO 0.8 (1.0-1.7); CALCIUM 8.5 mg/dL (8.5-10.1); CREATININE 0.9 mg/dL (0.6-1.0); GFR 59.7; POTASSIUM 4.6 mmol/L (3.5-5.1); TOTAL BILIRUBIN 0.7 mg/dL (0.2-1.0); TOTAL PROTEIN 6.9 g/dL (6.4-8.2)
[2020-09-28 15:56] VITALS: BP 140/83
--- NOTE | 2020-09-28 18:30 | NUR ---
SHIFT NOTE Pt resting comfortably in bed throughout day. Pt skin improving from admission pictures. Purewick and protective barrier cream used on skin with great improvement. Prescribed Baclofen has helped muscle spasms. Pt eager to go home tomorrow. CC, RN
[2020-09-28 19:14] VITALS: BP 131/86
[2020-09-28] MEDS: TEMAZEPAM 7.5 MG CAPSULE PO SCH (20:40)
--- NOTE | 2020-09-28 22:36 | PN ---
DATE: 09/28/2020 ATTENDING PHYSICIAN: Dr. Jones SUBJECTIVE: Feeling better, more alert. She is still bedridden, swelling has improved. She is achieving good diuresis. OBJECTIVE FINDINGS: VITAL SIGNS: Blood pressure this morning is 152/86, pulse rate is 70, temperature 98.8 degrees Fahrenheit, and oxygen saturation 94% on room air. HEENT: Head is without trauma. Pupils are reactive. Sclerae nonicteric. Oropharynx clear. NECK: Supple, no bruits. LUNGS: Good breath sounds. CARDIOVASCULAR: Regular heart tones. Hyperdynamic precordium. No gallops. ABDOMEN: Soft. EXTREMITIES: Showed improvement with decreased swelling on both lower extremities. No redness or erythema persists, but is not as angry. She still has stasis dermatitis bilaterally. LABORATORY DATA: Chemistry panel is pending. Creatinine yesterday was 0.9 mg/dL suggesting that we are immobilizing third space fluid. ASSESSMENT: 1. An 85-year-old female with stasis dermatitis. 2. Bilateral cellulitis, improved. 3. Acute on chronic congestive heart failure, compensated. 4. Generalized debilitation. 5. Essential tremor. 6. Noncompliance of meds. 7. Hypertension with hypertensive heart disease. PLAN: 1. Her lisinopril was increased to 20 b.i.d. 2. Continue IV Lasix. 3. Potassium and magnesium replacement. 4. Daily weights. 5. Fluid restriction. 6. IV antibiotics. 7. Serial chemistries. BABAK/ALEX DR: BABAK/woo TID: [id number] CC: MITZI FELICIANO MD
[2020-09-29 06:13] VITALS: BP 162/90
[2020-09-29] MEDS ORDERED: FLUMAZENIL 0.5 MG/5 ML VIAL. IV ONE (08:30)
[2020-09-29] MEDS: BACLOFEN 10 MG TABLET PO SCH ×3 (08:35→20:35)
[2020-09-29] MEDS: carBAMazepine 200 MG TABLET PO SCH ×2 (08:35→20:35)
[2020-09-29] MEDS: LACTOBACILLUS RHAMNOSUS GG 1 CAPSULE. PO SCH ×2 (08:35→20:35)
[2020-09-29] MEDS: PANTOPRAZOLE 40 MG TABLET. PO SCH (08:35)
[2020-09-29] MEDS: FERROUS SULFATE 325 MG TABLET. PO SCH (08:35)
[2020-09-29] MEDS: CHOLECALCIFEROL (VITAMIN D3) 1,000 UNIT TABLET PO SCH (08:35)
[2020-09-29] MEDS: APIXABAN 5 MG TABLET. PO SCH ×2 (08:35→20:35)
[2020-09-29] MEDS: METOPROLOL SUCC 24HR ER 25 MG TAB.ER.24H. PO SCH (08:35)
[2020-09-29] MEDS: LISINOPRIL 20 MG TABLET PO SCH ×2 (08:35→20:36)
[2020-09-29] MEDS: POTASSIUM CHLORIDE 20 MEQ TABLET.ER. PO SCH (08:36)
[2020-09-29] MEDS: ACETAMINOPHEN 325 MG TABLET PO PRN (08:40)
[2020-09-29] MEDS: NYSTATIN 100,000 UNITS/ML ORAL SUSPENSION 60ML BOTTLE. PO SCH ×4 (08:43→20:37)
[2020-09-29] MEDS: NYSTATIN TOPICAL POWDER 15GM BOTTLE. TP SCH ×2 (08:43→20:37)
[2020-09-29] MEDS ORDERED: FUROSEMIDE 100 MG/10 ML VIAL IVP ONE (10:15)
[2020-09-29] MEDS: VANCOMYCIN 1 GM in IV NORMAL SALINE 250ML 250 ML IV SCH ×2 (10:50→21:22)
[2020-09-29 11:57] VITALS: BP 151/92
--- NOTE | 2020-09-29 13:18 | PN ---
DATE: 09/29/2020 ATTENDING PHYSICIAN: Dr. Jones. SUBJECTIVE: The patient is very sleepy. I reviewed her meds. She has been on p.r.n. Ativan. This has been stopped. Romazicon has been ordered. OBJECTIVE FINDINGS: VITAL SIGNS: Blood pressure this morning is better, it is between 130 and 140 systolic. Pulse is 73 and regular. She is afebrile. Oxygen saturation 92% on room air. HEENT: Head is without trauma. Pupils are reactive. Sclerae nonicteric. Oropharynx clear. NECK: Supple. LUNGS: Shallow respirations. CARDIOVASCULAR: Showed regular heart tones. No gallops. ABDOMEN: Soft. EXTREMITIES: Showed improvement of swelling. The pedal edema has resolved. The redness and erythema has resolved. The infection is better. NEUROLOGIC: She is still nonambulatory at this time. ASSESSMENT: 1. An 85-year-old female with stasis dermatitis. 2. Bilateral cellulitis improved with inpatient care. 3. Acute on chronic congestive heart failure, compensated. 4. Hypertensive heart disease with labile blood pressure, improved with increasing of her STUART inhibitor. 5. Generalized debilitation. 6. Essential tremor. 7. Noncompliance. The patient has reached the point in her life where she is unable to care for herself and her elderly , who is also unable to care for her. PLAN: 1. Lisinopril was increased. 2. Continue IV Lasix. 3. Continue antibiotics. 4. I have stopped the Ativan. 5. Romazicon to reverse the effects of the benzodiazepines. 6. I shall contact the family to determine placement or whether she is able to be managed at home. MIGUELINA DR: Doni TID: [id number] CC: MITZI FELICIANO MD
[2020-09-29 15:38] VITALS: BP 128/76
[2020-09-29 19:04] VITALS: BP 154/88
[2020-09-29] MEDS: TEMAZEPAM 7.5 MG CAPSULE PO SCH (20:35)
[2020-09-30 05:41] VITALS: BP 159/75
[2020-09-30] MEDS: FERROUS SULFATE 325 MG TABLET. PO SCH (08:14)
[2020-09-30] MEDS: CHOLECALCIFEROL (VITAMIN D3) 1,000 UNIT TABLET PO SCH (08:14)
[2020-09-30] MEDS: LISINOPRIL 20 MG TABLET PO SCH (08:15)
[2020-09-30] MEDS: APIXABAN 5 MG TABLET. PO SCH (08:15)
[2020-09-30] MEDS: METOPROLOL SUCC 24HR ER 25 MG TAB.ER.24H. PO SCH (08:15)
[2020-09-30] MEDS: LACTOBACILLUS RHAMNOSUS GG 1 CAPSULE. PO SCH (08:15)
[2020-09-30] MEDS: PANTOPRAZOLE 40 MG TABLET. PO SCH (08:15)
[2020-09-30] MEDS: carBAMazepine 200 MG TABLET PO SCH (08:15)
[2020-09-30] MEDS: BACLOFEN 10 MG TABLET PO SCH (08:16)
[2020-09-30] MEDS: POTASSIUM CHLORIDE 20 MEQ TABLET.ER. PO SCH (08:16)
[2020-09-30] MEDS: NYSTATIN TOPICAL POWDER 15GM BOTTLE. TP SCH (08:24)
[2020-09-30] MEDS: NYSTATIN 100,000 UNITS/ML ORAL SUSPENSION 60ML BOTTLE. PO SCH (09:00)
[2020-09-30] MEDS: VANCOMYCIN 1 GM in IV NORMAL SALINE 250ML 250 ML IV SCH (10:09)
[2020-09-30 11:06] VITALS: BP 154/79
[2020-09-30] MEDS ORDERED: CEPH500T PO (12:52)
[2020-09-30] MEDS ORDERED: LISI20TA18 PO (12:52)
[2020-09-30] MEDS ORDERED: PROP20TA PO (12:52)
--- NOTE | 2020-09-30 13:01 | DISCH ---
HOME HEALTH DISCHARGE/MEDS DISCHARGE INFORMATION: Discharge Date: Sep 30, 2020 Final Diagnosis: bilaterl L E Stasis dermatitis Bilateral LE Cellulitis Condition on Discharge: Stable CODE STATUS: Code Status: DNR/DNI HOME HEALTH: Face to Face: I certify this patient is under my care and that I, or a nurse practitioner or physician's anesthetic assistant working with me, had a face to face encounter that meets the physician face to face encounter requirements with this patient on 1 Medical Condition(s): CHF Residential For: Admin/Educate Injections Physical Therapy For: Evalulation/Treatment Occupational Therapy For: Evaluation/Treatment Homebound Status Met By: Limited distance walking POST DISCHARGE ORDERS: Activity Instructions for Disc: Resume previous activity DIET AFTER DISCHARGE: Cardiac CERTIFICATION STATEMENT: Certification Statement: Based on the above finding, I certify that this patient is confined to the home and needs intermittent mcfp care, physical therapy and/or speech therapy, or continues to need occupational therapy.~ This patient is under my care, and I have initiated the establishment of the plan of care.~ This patient will be followed by myself or a community physician who will periodically review the plan of care. DISCHARGE MEDICATIONS: Home Meds Active Scripts Lisinopril (LISINOPRIL) 20 Mg Tablet, 1 TAB PO BID for htn for 30 Days, #60 TAB 5 Refills Prov:MIRTA MCKEON MD 09/30/20 Propranolol Hcl (PROPRANOLOL HCL) 20 Mg Tablet, 1 TAB PO BID for tremors for 30 Days, #60 TAB 2 Refills Prov:MIRTA MCKEON MD 09/30/20 Cephalexin (CEPHALEXIN) 500 Mg Tablet, 1 TAB PO TID for cellulitis for 5 Days, #15 TAB Prov:MIRTA MCKEON MD 09/30/20 Reported Medications Nystatin (NYSTATIN) 15 Gm Powder, 1 ROSMERY TP BID for breast rash for 7 Days, #1 BOTTLE 0 Refills apply to affected area(s) 09/16/20 Temazepam (TEMAZEPAM) 15 Mg Capsule, 1 CAP PO QHS for INSOMNIA, #30 CAP 1 Refill 09/16/20 Pantoprazole Sodium (PANTOPRAZOLE SODIUM) 40 Mg Tablet.dr, 1 TAB PO DAILY for GERD, #30 TAB 3 Refills 09/16/20 Nystatin (NYSTATIN) 100,000 Unit/1 Ml Oral.susp, 5 ML PO QID for REDNESS, #200 ML 09/16/20 Gabapentin (GABAPENTIN) 600 Mg Tablet, 600 MG PO TID for NEUROGENIC PAIN, TAB 09/16/20 Furosemide (FUROSEMIDE) 40 Mg Tablet, 1 TAB PO DAILY for DIURETIC, #30 TAB 5 Refills 09/16/20 Ferrous Sulfate (FERROUS SULFATE) 325 Mg Tablet, 1 TAB PO DAILY for SUPPLEMENT, #30 TAB 3 Refills 09/16/20 Carbamazepine (EPITOL) 200 Mg Tablet, 200 MG PO BID for ANTICONVULSANT, TAB 09/16/20 Apixaban (ELIQUIS) 5 Mg Tablet, 5 MG PO BID for BLOOD THINNER, TAB 09/16/20 Cholecalciferol (Vitamin D3) (Dialyvite Vitamin D) 125 Mcg Capsule, 125 MCG PO DAILY for SUPPLEMENT, CAP 09/16/20 Baclofen (BACLOFEN) 10 Mg Tablet, 5 MG PO TID for MUSCLE RELAXER, #30 TAB 0 Refills 09/16/20 Aspirin (ASPIRIN) 81 Mg Tab.chew, 81 MG PO DAILY for BLOOD THINNER, TAB 09/16/20 Acetaminophen (ACETAMINOPHEN) 325 Mg Tablet, 325-650 MG PO PRN Q6HRS PRN for MILD PAIN / TEMP > 100.3'F, TAB 09/16/20 Discontinued Reported Medications Ramipril (RAMIPRIL) 5 Mg Capsule, 1 CAP PO HS for HTN for 30 Days, #30 CAP 0 Refills 09/16/20 Metoprolol Succinate (METOPROLOL SUCCINATE ( XL )) 25 Mg Tab.er.24h, 1 TAB PO DAILY for HIGH BLOOD PRESSURE, #30 TAB 5 Refills 09/16/20 Discontinued Scripts Ceftriaxone Na/Dextrose,Iso (CEFTRIAXONE 1 GM PIGGYBACK) 1 Gm/50 Ml Froz.piggy, 1 GM IV DAILY PRN for ellulitis for 5 Days, #5 EACH Prov:MIRTA MCKEON MD 09/21/20 MIRTA MCKEON MD Sep 30, 2020 13:01
--- NOTE | 2020-09-30 13:29 | DS ---
DATE OF DISCHARGE: 09/30/2020 HOSPITAL COURSE: The patient is an 85-year-old female patient who was readmitted again on 09/25. She was in fact discharged home with home health after she refused to go to the long-term facility on 09/21. Apparently, she was discharged at that time with a prescription for Keflex that her did not fill and she came back with again bilateral lower extremity cellulitis and bilateral stasis dermatitis. She was started on IV vancomycin and she did well. Apparently, her blood pressure was labile and extremely high at one point in time, so her lisinopril was increased to 20 mg twice a day. Her Ativan was discontinued and she did actually very well. All the erythema of her bilateral lower extremities has resolved as well as the swelling and a decision was made to discharge her home to continue treatment with oral antibiotic in the form of Keflex 500 mg 3 times a day. I also switched her metoprolol to propranolol 20 mg twice a day for essential benign familial tremors. PHYSICAL EXAMINATION: GENERAL: When I examined her this afternoon, she looked well and was clearly in no apparent respiratory distress; pale, but no jaundice, cyanosis or thyromegaly. No jugular venous distention. No lower limb edema. VITAL SIGNS: Her heart rate was 70, blood pressure was 154/79, temperature was 97.6, respiratory rate 20, and oxygen saturation was 94% on room air. HEAD, EYES, EARS, NOSE, AND THROAT: Normocephalic, atraumatic. NECK: Supple. HEART: Showed normal first and second heart sounds; no gallop, rub or murmur. CHEST: Clear to auscultation, no crepitation or rhonchi. ABDOMEN: Slightly distended, soft, nontender. NEUROLOGIC: She is awake, alert, responding appropriately. All cranial nerves intact. She moves upper extremities without difficulty. She is, however, mostly bedbound, wheelchair bound. She has bilateral foot drops. Her intake was 700, output was 1600. Her most recent lab work showed a white cell count of 7900, hemoglobin 13, hematocrit 38, MCV 102 and platelet count of 334,000. Her chemistry showed a serum sodium of 136, potassium 4.6, chloride 100, bicarbonate 28, anion gap of 8, BUN 12, creatinine 0.9. Estimated GFR was 59 mL per minute. Her glucose 125, calcium was 8.5. Total bilirubin, AST, ALT, alkaline phosphatase were normal. Total protein was 6.9, albumin was 3. DISCHARGE MEDICATIONS: She was discharged home with home health to continue on lisinopril 20 mg twice a day, Keflex 500 mg 3 times a day, potassium chloride 40 mEq once a day, vitamin D 1000 units once a day, nystatin suspension 5 mL 4 times a day, propranolol 20 mg twice a day, carbamazepine 200 mg twice a day, baclofen 5 mg 3 times a day, ferrous sulfate 325 mg once a day, Protonix 40 mg daily, temazepam 15 mg at bedtime, apixaban 5 mg twice a day, and acetaminophen 650 mg every 4 hours as needed. FINAL DISCHARGE DIAGNOSES: 1. Bilateral lower extremity stasis dermatitis. 2. Bilateral lower extremity cellulitis. 3. Acute on chronic diastolic congestive heart failure, well compensated. 4. Hypertensive heart disease. 5. Labile hypertension, much better controlled. 6. Benign essential tremors for which she was started on propranolol and I have discontinued her metoprolol. RICKIE DR: Sergio TID: [id number]
--- NOTE | 2020-09-30 14:42 | NUR ---
discharge note pt discharged at 1435 via wheel chair accompanied by . Pt discharged per policies and procedures. pt refused EMS transport and also denied need of assistance in getting any mechanical lifts or assistive devices. pt and family member given written and verbal instructions for discharge with verbal statement of understanding received.
== END 2020-09-30 14:51 | disposition home health service (06) | DRG 602 ==
LOC: ER 17:21 → 1 SOUTH 20:19
PROVIDERS: ADMIT Hospitalist; ATTEND Hospitalist
DX: L03.115 Cellulitis of right lower limb (principal); R53.2 Functional quadriplegia; I50.43 Acute on chronic combined systolic (congestive) and diastolic (congestive) heart failure; L03.116 Cellulitis of left lower limb; G25.0 Essential tremor; I11.0 Hypertensive heart disease with heart failure; Z66 Do not resuscitate; I48.0 Paroxysmal atrial fibrillation; I87.2 Venous insufficiency (chronic) (peripheral); Z74.01 Bed confinement status; Z79.899 Other long term (current) drug therapy; Z80.3 Family history of malignant neoplasm of breast; Z82.49 Family history of ischemic heart disease and other diseases of the circulatory system; Z86.73 Personal history of transient ischemic attack (TIA), and cerebral infarction without residual deficits; Z91.14 Patient's other noncompliance with medication regimen; Z95.0 Presence of cardiac pacemaker
CPT/HCPCS: 36415; 71045; 80053; 83605; 83880; 84484; 85025; 93005; 96374; J1940; J2060; J3370; J3475; J3490; J7040; J7050; 99285-25

== ENCOUNTER 2020-10-03 09:52 | Emergency (ER) | payer MEDICARE, OTHER ==
[~2020-10-03] VITALS: Ht 157.5 cm; Wt 67.0 kg
[~2020-10-03 09:52] MED LIST changes: +CEPH500T PO; +LISI20TA18 PO; +PROP20TA PO
--- NOTE | 2020-10-03 10:08 | RAD ---
CT brain without contrast HISTORY: Code stroke, altered mental status CT scan of brain was done without contrast. There is no intracranial hemorrhage or subdural hematoma. There is no mass effect or shift of the midline. Ventricles are normal in size. An acute CVA is not identified. There is a mucous retention cyst in the right maxillary antrum. Sinuses are otherwise juanjo ar. A skull fracture is not identified. IMPRESSION: 1. No intracranial hemorrhage or acute finding noted. FOR INTERNAL CODING PURPOSES Critical result: Findings discussed with ER physician at 10/03/2020 10:02 AM. RESULT CODE: (C) PQRS Compliance Statement: One or more of the following individualized dose reduction techniques were utilized for this examinat ion: 1. Automated exposure control 2. Adjustment of the mA and/or kV according to patient size 3. Use of iterative reconstruction technique Electronically signed by: Yordy Parry MD (10/03/2020 10:05 AM) [facility]
[2020-10-03] MEDS ORDERED: IOHEXOL 350 MG/ML 100 ML VIAL. IV ONE (10:15)
[2020-10-03] MEDS ORDERED: CONTRAST GIVEN. MC PRN (10:15)
--- NOTE | 2020-10-03 10:44 | PHYS DOC ---
Past History Past Medical History: A-Fib Additional Past Medical Histor: Cellulitis; Pacemaker Past Surgical History: No Surgical History, Pacemaker Alcohol Use: None Social History unknown tobacco, drugs General Adult EDM: Chief Complaint: ALTERED MENTAL STATUS Problems: (1) Altered mental state HPI: HPI: Patient is a 85-year-old female comes to the emergency department via EMS with altered mental state that reportedly started suddenly about an hour prior to presentation around 083. The noticed the patient was acting strangely ar ound this time, starting into space and not responding appropriately but stated to EMS that the patient as last known to be at baseline last night. The states that the patient had to be fed last night 'because she was so weak', this was the first time he had to do this. Around 0830 when the patient woke up, the patient began to have aphasia, had difficulty getting her words out, appeared weak and confused according to the . She was unable to follow concrete exams in the field. Here in the emergency department she is unable to provide a history and is unable to recall details of her presentation today. She does have aphasia which limits her history and she is difficult to understand. She arrives covered in stool and disheveled. Reportedly, she was recently treated for a left arm cellulitis and was on Keflex for this. She does take Eliquis for A. fib and she does have a pacemaker. Review of Systems: Review of Systems: Further review of systems are unobtainable at this time secondary to the patient's clinical condition. Family History: Family History: Unknown Current Medications: Current Meds: Current Medications Medications (Trade) Dose Ordered Sig/Zarina Start Time Stop Time Status Last Admin Dose Admin Info (Do NOT chart on this entry -- for MONITORING) 1 each PRN DAILY PRN 10/03/20 10:15 10/05/20 10:14 Iohexol (Omnipaque 350 Mg/ml) 100 ml 1X ONCE 10/03/20 10:15 10/03/20 10:17 DC Allergies: Allergies: Allergies Coded Allergies Type Severity Reaction Last Updated Verified No Known Drug Allergies 09/25/20 No Physical Exam: PE: Constitutional: Elderly female in no acute distress, obviously altered with garbled speech. HENT: Atraumatic, bilateral external ears normal, nose normal. Eyes: PERRLA, she is unable to participate in extraocular movement exam, conjunctiva normal, no discharge. Neck: Supple, no stridor. Cardiovascular: Heart rate regular rhythm. 2+ radial pulses Lungs & Thorax: No respiratory distress, symmetrical expansion. Bilateral breath sounds clear to auscultation Abdomen: Soft, no tenderness Genitourinary: Patient is covered in feces, she has diaper rash apparent under her adult diaper and is covered in stool. Skin: Warm, dry. There is faint erythema to the left arm with mild swelling. Extremities: No tenderness, no cyanosis, no edema. Neurologic: Patient is unable to speak fluently, she has garbled speech, and it does not make sense. She is able to grab my hand but is unable to hold her limbs up against gravity x4. Sensation is difficult to assess. She is not able to smile completely or make simple facial motions. She is unable to participate in cerebellar function testing including [id number] or [id number]. Current Patient Data: Labs: Laboratory Tests Test 10/03/20 10:24 10/03/20 11:15 Urine Collection Type U cath Urine Color Yellow Urine Clarity Hazy Urine pH 5.5 Urine Specific [place] 1.015 Urine Protein Neg (NEG-TRACE) Urine Glucose (UA) Neg mg/dL (NEG) Urine Ketones (Stick) Neg mg/dL (NEG) Urine Blood Neg (NEG) Urine Nitrite Neg (NEG) Urine Bilirubin Neg (NEG) Urine Urobilinogen Dipstick 0.2 mg/dL (0.2 mg/dL) Urine Leukocyte Esterase Neg (NEG) Urine RBC 1-2 /HPF (0-2) Urine WBC 1-4 /HPF (0-4) Urine Squamous Epithelial Cells Few /LPF Urine Transitional Epithelial Cells /LPF Urine Bacteria 0 /HPF (0-FEW) Urine Hyaline Casts Occ /HPF Urine Mucus Slight /LPF White Blood Count 16.8 x10^3/uL (4.0-11.0) H Red Blood Count 4.24 x10^6/uL (3.50-5.40) Hemoglobin 14.4 g/dL (12.0-15.5) Hematocrit 46.3 % (36.0-47.0) Mean Corpuscular Volume 109 fL (79-100) H Mean Corpuscular Hemoglobin 34 pg (25-35) Mean Corpuscular Hemoglobin Concent 31 g/dL (31-37) Red Cell Distribution Width 16.2 % (11.5-14.5) H Platelet Count 308 x10^3/uL (140-400) Neutrophils (%) (Auto) 84 % (31-73) H Lymphocytes (%) (Auto) 7 % (24-48) L Monocytes (%) (Auto) 8 % (0-9) Eosinophils (%) (Auto) 1 % (0-3) Basophils (%) (Auto) 0 % (0-3) Neutrophils # (Auto) 14.1 x10^3uL (1.8-7.7) H Lymphocytes # (Auto) 1.2 x10^3/uL (1.0-4.8) Monocytes # (Auto) 1.4 x10^3/uL (0.0-1.1) H Eosinophils # (Auto) 0.2 x10^3/uL (0.0-0.7) Basophils # (Auto) 0.0 x10^3/uL (0.0-0.2) Segmented Neutrophils % 76 % (35-66) H Lymphocytes % 13 % (24-48) L Monocytes % 10 % (0-10) Eosinophils % 1 % (0-5) Platelet Estimate Adequate (ADEQUATE) Prothrombin Time 11.5 SEC (9.4-11.4) H Prothrombin Time INR 1.1 (0.9-1.1) Activated Partial Thromboplast Time 28 SEC (23-33) Sodium Level 130 mmol/L (136-145) L Potassium Level 3.8 mmol/L (3.5-5.1) Chloride Level 96 mmol/L (98-107) L Carbon Dioxide Level 24 mmol/L (21-32) Anion Gap 10 (6-14) Blood Urea Nitrogen 22 mg/dL (7-20) H Creatinine 1.3 mg/dL (0.6-1.0) H Estimated GFR (Cockcroft-Gault) 39.0 Glucose Level 91 mg/dL (70-99) Lactic Acid Level 1.6 mmol/L (0.4-2.0) Calcium Level 7.9 mg/dL (8.5-10.1) L Magnesium Level 2.5 mg/dL (1.8-2.4) H Troponin I Quantitative < 0.017 ng/mL (0-0.055) YY-Beu-S-Type Natriuretic Peptide 2851 pg/mL (0-449) H Vital Signs: Vital Signs Date Time Temp Pulse Resp B/P (MAP) Pulse Ox O2 Delivery O2 Flow Rate FiO2 10/03/20 10:26 97.6 12 143/67 94 Room Air EKG: EKG: Paced rhythm rate of 70, [No ST-T wave changes], [no ectopic beats], [normal axis], [normal CO, QRS, and QTc intervals]. Impression: [Normal EKG.] Interpreted by meIsh D.O. Radiology/Procedures: Radiology/Procedures: PROCEDURE: PORTABLE CHEST 1V EXAM: Chest, single view. HISTORY: Weakness. COMPARISON: 09/25/2020. FINDINGS: A frontal view of the chest is obtained. There is lingular and left basilar atelectasis or scarring. There is no infiltrate, pleural effusion or pneumothorax. There is a stable cardiac silhouette and cardiac pacemaker. There is lower thoracic fusion instrumentation. IMPRESSION: No acute pulmonary finding. Electronically signed by: Sammie Adihkari MD (10/03/2020 11:28 AM) CT CODE STROKE HEAD WO CT brain without contrast HISTORY: Code stroke, altered mental status CT scan of brain was done without contrast. There is no intracranial hemorrhage or subdural hematoma. There is no mass effect or shift of the midline. Ventricles are normal in size. An acute CVA is not identified. There is a mucous retention cyst in the right maxillary antrum. Sinuses are otherwise clear. A skull fracture is not identified. IMPRESSION: 1. No intracranial hemorrhage or acute finding noted. HEAD AND NECK CTA WITH AND WITHOUT CONTRAST AND 3-D RECONSTRUCTION: Clinical indications: Code stroke. Altered mental status. Sudden onset of weak ness and aphasia. Technique: Noncontrast CT scanning of the head was performed. An appropriate noncontrast localizer was identified in the neck and used as the region of interest during contrast injection. Following IV infusion of 100 cc of Omnipaque 350, helical CT scanning of the neck and head was performed. Axial and coronal and sagittal 2-D MIP reconstructions were generated and reviewed on a computer monitor. Using a MIP algorithm, a 3-D reconstructed angiogram was generated and reviewed on a computer monitor. PQRS compliance Statement One or more of the following individualized dose reduction techniques were utilized for this study: 1. Automated exposure control 2. Adjustment of the mA and/or kV according to patient size 3. Use of iterative reconstruction technique The measurements were performed using the NASCET criteria. Head CT Findings: Noncontrast head CT was reported earlier. No intracranial contrast enhancing lesion or mass lesion is seen. Neck CTA Findings: No occlusive disease is seen. There is significant calcified plaque within the carotid bifurcations of the neck bilaterally. There is a greater than 90 percent stenosis of the origin of the left ICA and there is a 75 percent stenosis of the origin of the right ICA. The vertebral arteries are codominant in size. No soft tissue mass or enlarged cervical lymphadenopathy is seen. There is a less than 50 percent stenosis of the origin of the left subclavian artery and origin of the right common carotid artery. There is a 12 mm right apical lung nodule. Head CTA Findings: No aneurysm is seen involving the [place]. Multiple calcified plaque lesions are seen involving the cavernous portion of the left internal carotid artery some of which are 50 percent stenotic. There is less prominent mild calcified plaque formation involving the cavernous portion of the right internal carotid artery. No large vessel occlusion. No thromboembolism is identified. No arteriovenous malformation is evident. The dural venous sinuses enhance normally. IMPRESSION: No large vessel occlusion. Greater than 90 percent stenosis of the origin of the the left ICA within the neck. 75 percent stenosis of the origin of the right ICA within the neck. Multiple stenoses of the cavernous portion of the left internal carotid artery. Some of these are 50 percent stenotic. 12 mm lung nodule within the right apex. Recommend a short-term follow-up chest CT in 3 months as per Fleischner guidelines. Heart Score: C/O Chest Pain: N/A Course & Med Decision Making: Course & Med Decision Making Patient is not a candidate for TPA as she is on Eliquis, unclear time of onset with possibility of wake up stroke, neuro examination is largely non focal. She had an emertent CT of the head performed upon ER admission which was negative for bleed, glucose was within normal limits, CTA was then emergently performed. As indicated above, the patient has critical stenosis of the left carotid and significant stenosis of the right carotid as well. I discussed this with Dr. Samano who is on-call for vascular surgery. The patient will likely need a carotid endarterectomy, she recommended transfer to a higher level of care. I contacted [facility] where Dr. Samano is also credentialed, who has accepted the patient for further care. I discussed the case with Dr. Valentin from neurology at [facility] who will be the accepting physician. I discussed the findings and the disposition with the patient's Bruce who is agreeable to the plan. Patient is hemodynamically stable the time of transfer' Critical care time was 35 minutes which includes time at bedside, spent in discussion of patient's care with specialists and/or family members, with i nterpretation of laboratory and/or radiological studies and is exclusive of procedures. Departure Departure: Impression: Primary Impression: Carotid artery stenosis with cerebral infarction Additional Impression: Stroke Disposition: 02 SHORT TERM HOSPITAL ([facility]) Condition: STABLE Referrals: FRANCI GONZALEZ (PCP) ISH TROTTER DO Oct 03, 2020 10:44
[2020-10-03 11:15] LABS: BILIRUBIN,URINE NEG (NEG); CLARITY,URINE HAZY; COLOR,URINE YELLOW; GLUCOSE,URINE NEG (NEG); NITRITE,URINE NEG (NEG); UROBILINOGEN,URINE 0.2 mg/dL (0.2 mg/dL)
[2020-10-03 11:17] LABS: BACTERIA,URINE 0 /HPF (0-FEW); SQUAMOUS EPITHELIAL CELL,UR FEW /LPF
[2020-10-03 11:18] LABS: HYALINE CASTS, URINE OCC /HPF
--- NOTE | 2020-10-03 11:31 | RAD ---
EXAM: Chest, single view. HISTORY: Weakness. COMPARISON: 09/25/2020. FINDINGS: A frontal view of the chest is obtained. There is lingular and left basilar atelectasis or scarring. There is no infiltrate, pleural effusion or pneumothorax. There is a stable cardiac silhoue tte and cardiac pacemaker. There is lower thoracic fusion instrumentation. IMPRESSION: No acute pulmonary finding. Electronically signed by: Sammie Adhikari MD (10/03/2020 11:28 AM) [id number]
[2020-10-03 11:37] LABS: BASO % 0 % (0-3); EOS # 0.2 x10^3/uL (0.0-0.7); EOS % 1 % (0-3); HEMATOCRIT 46.3 % (36.0-47.0); HEMOGLOBIN 14.4 g/dL (12.0-15.5); LYMPH # 1.2 x10^3/uL (1.0-4.8); LYMPH % 7 % (24-48); MEAN CORPUSCULAR HEMOGLOBIN 34 pg (25-35); MEAN CORPUSCULAR HGB CONC 31 g/dL (31-37); MEAN CORPUSCULAR VOLUME 109 fL (79-100); MONO # 1.4 x10^3/uL (0.0-1.1); MONO % 8 % (0-9); NEUT # 14.1 x10^3uL (1.8-7.7); NEUT % 84 % (31-73); PLATELET COUNT 308 x10^3/uL (140-400); RED BLOOD COUNT 4.24 x10^6/uL (3.50-5.40); RED CELL DISTRIBUTION WIDTH 16.2 % (11.5-14.5); WHITE BLOOD COUNT 16.8 x10^3/uL (4.0-11.0)
--- NOTE | 2020-10-03 11:37 | RAD ---
HEAD AND NECK CTA WITH AND WITHOUT CONTRAST AND 3-D RECONSTRUCTION: Clinical indications: Code stroke. Altered mental status. Sudden onset of weakness and aphasia. Technique: Noncontrast CT scanning of the head was performed. An appropriate noncontrast localizer w as identified in the neck and used as the region of interest during contrast injection. Following IV infusion of 100 cc of Omnipaque 350, helical CT scanning of the neck and head was performed. Axial an d coronal and sagittal 2-D MIP reconstructions were generated and reviewed on a computer monitor. Usi ng a MIP algorithm, a 3-D reconstructed angiogram was generated and reviewed on a computer monitor. PQRS compliance Statement One or more of the following individualized dose reduction techniques were utilized for this study: 1. Automated exposure control 2. Adjustment of the mA and/or kV according to patient size 3. Use of iterative reconstruction technique The measurements were performed using the NASCET criteria. Head CT Findings: Noncontrast head CT was reported earlier. No intracranial contrast enhancing lesion or mass lesion is seen. Neck CTA Findings: No occlusive disease is seen. There is significant calcified plaque within the carotid bifurcations o f the neck bilaterally. There is a greater than 90 percent stenosis of the origin of the left ICA and there is a 75 percent stenosis of the origin of the right ICA. The vertebral arteries are codominant in size. No soft tissue mass or enlarged cervical lymphadenopathy is seen. There is a less than 50 p ercent stenosis of the origin of the left subclavian artery and origin of the right common carotid ar melvin. There is a 12 mm right apical lung nodule. Head CTA Findings: No aneurysm is seen involving the [place] of Rachel. Multiple calcified plaque lesions are seen involv ing the cavernous portion of the left internal carotid artery some of which are 50 percent stenotic. There is less prominent mild calcified plaque formation involving the cavernous portion of the right internal carotid artery. No large vessel occlusion. No thromboembolism is identified. No arteriovenou s malformation is evident. The dural venous sinuses enhance normally. IMPRESSION: No large vessel occlusion. Greater than 90 percent stenosis of the origin of the the left ICA within the neck. 75 percent stenos is of the origin of the right ICA within the neck. Multiple stenoses of the cavernous portion of the left internal carotid artery. Some of these are 50 percent stenotic. 12 mm lung nodule within the right apex. Recommend a short-term follow-up chest CT in 3 months as per Fleischner guidelines. FOR INTERNAL CODING PURPOSES Critical result: Findings discussed with the emergency room physician Dr. Dimas Lagunas at 10/03/2020 11:28 AM. RESULT CODE: (C) Electronically signed by: Augustus Gallardo MD (10/03/2020 11:35 AM) [id number]
[2020-10-03 11:48] LABS: CALCIUM 7.9 mg/dL (8.5-10.1); CREATININE 1.3 mg/dL (0.6-1.0); POTASSIUM 3.8 mmol/L (3.5-5.1)
[2020-10-03 12:07] LABS: MAGNESIUM 2.5 mg/dL (1.8-2.4)
[2020-10-03 12:22] LABS: % EOS 1 % (0-5); % LYMPHS 13 % (24-48); % MONOS 10 % (0-10); % SEGS 76 % (35-66); PLT ESTIMATE ADEQUATE (ADEQUATE)
[2020-10-03 13:35] VITALS: BP 106/68
--- NOTE | 2020-10-03 21:28 | EKG ---
[address] [address] Test Date: 2020-10-03 Test Time: 11:32:44 Pat Name: CANDELARIA LUGO Department: Room: Gender: F Hris Analyst: : 1935 Requested By: ISH TROTTER Order Number: [id number] Reading MD: Measurements Intervals [place] Rate: 70 P: KS: QRS: -48 QRSD: 128 T: 133 QT: 470 QTc: 511 Interpretive Statements ACCELERATED JUNCTIONAL RHYTHM ABNORMAL LEFT AXIS DEVIATION LOW LIMB LEAD VOLTAGE RIGHT BUNDLE BRANCH BLOCK CONSIDER RIGHT VENTRICULAR HYPERTROPHY QRS(T) CONTOUR ABNORMALITY CONSISTENT WITH INFERIOR INFARCT PROBABLY OLD ABNORMAL ECG RI6.02 No previous ECG available for comparison
== END 2020-10-03 14:00 | disposition short-term general hospital (02) ==
LOC: ER 09:52
DX: I63.232 Cerebral infarction due to unspecified occlusion or stenosis of left carotid arteries (principal); R41.82 Altered mental status, unspecified; I63.9 Cerebral infarction, unspecified
CPT/HCPCS: 36415; 70450; 70496; 70498; 71045; 80048; 81001; 83605; 83735; 83880; 84484; 85007; 85025; 85610; 85730; 87040; 93005; 99291; Q9967

== ENCOUNTER 2020-10-15 14:45 | Inpatient (IN) | payer MEDICARE, OTHER ==
[~2020-10-15] VITALS: Ht 157.5 cm; Wt 67.0 kg
[2020-10-15] MEDS ORDERED: IV NORMAL SALINE 1,000ML 1,000 ML IV ONE (15:00)
[2020-10-15 15:39] LABS: BASO # 0.1 x10^3/uL (0.0-0.2); BASO % 0 % (0-3); EOS # 0.2 x10^3/uL (0.0-0.7); EOS % 1 % (0-3); HEMATOCRIT 36.1 % (36.0-47.0); LYMPH # 1.8 x10^3/uL (1.0-4.8); LYMPH % 9 % (24-48); MEAN CORPUSCULAR HEMOGLOBIN 34 pg (25-35); MEAN CORPUSCULAR HGB CONC 33 g/dL (31-37); MEAN CORPUSCULAR VOLUME 101 fL (79-100); MONO # 1.4 x10^3/uL (0.0-1.1); MONO % 7 % (0-9); NEUT # 17.4 x10^3uL (1.8-7.7); NEUT % 83 % (31-73); PLATELET COUNT 309 x10^3/uL (140-400); RED BLOOD COUNT 3.57 x10^6/uL (3.50-5.40); RED CELL DISTRIBUTION WIDTH 14.2 % (11.5-14.5); WHITE BLOOD COUNT 20.9 x10^3/uL (4.0-11.0)
--- NOTE | 2020-10-15 15:39 | PHYS DOC ---
Past History Past Medical History: A-Fib Additional Past Medical Histor: Cellulitis; Pacemaker Past Surgical History: No Surgical History, Pacemaker Alcohol Use: None General Adult EDM: Chief Complaint: HYPOTENSION HPI: HPI: Patient is a 85-year-old female who presents with hypotension. Patient states that the home health nurse was at her house and said that her blood pressure was in the 70s. Patient does states she had some dizziness when her pressure was low. Patient is denying any symptoms at this time. Patient's blood pressure on arrival is 110s. Review of Systems: Review of Systems: Constitutional: Denies fever or chills Eyes: Denies change in visual acuity HENT: Denies nasal congestion or sore throat Respiratory: Denies cough or shortness of breath Cardiovascular: Denies chest pain or edema GI: Denies abdominal pain, nausea, vomiting, bloody stools or diarrhea : Denies dysuria Musculoskeletal: Denies back pain or joint pain Integument: Denies rash Neurologic: Denies headache, focal weakness or sensory changes Endocrine: Denies polyuria or polydipsia Lymphatic: Denies swollen glands Psychiatric: Denies depression or anxiety Current Medications: Current Meds: Current Medications Medications (Trade) Dose Ordered Sig/Zarina Start Time Stop Time Status Last Admin Dose Admin Sodium Chloride 1,000 ml @ 1,000 mls/hr 1X ONCE 10/15/20 15:00 10/15/20 15:59 10/15/20 15:23 1,000 MLS/HR Allergies: Allergies: Allergies Coded Allergies Type Severity Reaction Last Updated Verified No Known Drug Allergies 09/25/20 No Physical Exam: PE: Constitutional: Well developed, well nourished, no acute distress, non-toxic appearance. [] HENT: Normocephalic, atraumatic, bilateral external ears normal, oropharynx moist, no oral exudates, nose normal. [] Eyes: PERRLA, EOMI, conjunctiva normal, no discharge. [] Neck: Normal range of motion, no tenderness, supple, no stridor. [] Cardiovascular:Heart rate regular rhythm, no murmur [] Lungs & Thorax: Bilateral breath sounds clear to auscultation [] Abdomen: Bowel sounds normal, soft, no tenderness, no masses, no pulsatile masses. [] Skin: Warm, dry, no erythema, no rash. [] Back: No tenderness, no CVA tenderness. [] Extremities: No tenderness, no cyanosis, no clubbing, ROM intact, no edema. [] Neurologic: Alert and oriented X 3, normal motor function, normal sensory function, no focal deficits noted. [] Psychologic: Affect normal, judgement normal, mood normal. [] EKG: EK bpm. Sinus rhythm. No ST elevation or depression [] Radiology/Procedures: Radiology/Procedures: []XR CHEST 1V History: Hypotension. Comparison: 10/03/2020 Technique: Portable AP radiograph of the chest. Findings: There is a left chest 2-lead cardiac pacemaker in unchanged position. Partially visualized IVC filter. Lungs are minimally hypo-inflated. There are linear opacities in the left costop hrenic angle likely atelectasis. No pleural effusion or pneumothorax. Cardiac silhouette is normal in size with calcification of the aortic arch. Pulmonary vasculature is within normal limits. No acute osseous abnormality. Posterior spinal fixation at T11-T12. Soft tissues are unremarkable. Impression: 1. No acute cardiopulmonary process. Electronically signed by: Coleman Morales MD (10/15/2020 5:48 PM) [facility] Heart Score: C/O Chest Pain: No Risk Factors: Risk Factors: DM, Current or recent (<one month) smoker, HTN, HLP, family history of CAD, obesity. Risk Scores: Score 0 - 3: 2.5% MACE over next 6 weeks - Discharge Home Score 4 - 6: 20.3% MACE over next 6 weeks - Admit for Clinical Observation Score 7 - 10: 72.7% MACE over next 6 weeks - Early Invasive Strategies Course & Med Decision Making: Course & Med Decision Making Pertinent Labs and Imaging studies reviewed. (See chart for details) [] 85-year-old female presents with hypotension and dizziness . Patient reports that her home health nurse told her that her blood pressure was low and was and the 70s at home. On arrival blood pressure was 110s. Patient denies any other symptoms at this time. Patient given liter bolus. Patient blood pressures dropped back into the low 90s. WBC 20.9, BUN 25, creatinine 1.7. Patient was admitted for sepsis on 09/16 and cellulitis on 09/25. Patient was admitted on for carotid artery stenosis. Patient's WBCs are similar to previous visit that have increased along with symptomatic hypotension. UA is negative for infection. Patient has some yeast and broken down skin on groin. Ordered to apply to affected areas. Spoke with regarding admission plan. agrees with admission plan. After speaking with patient's son. Patient was placed on 2 new blood p ressure medication lisinopril and metoprolol last week when she was seen at . Son is the power of trade marker, who lives in [place]. Son states that mom is supposed to be DNR but does not have paperwork filled out. Spoke with Dr. Pereira regarding admission. agreed to admit patient to [facility] for sepsis. Dragon Disclaimer: Gretchen Disclaimer: This electronic medical record was generated, in whole or in part, using a voice recognition dictation system. Departure Departure: Impression: Primary Impression: Sepsis Qualified Codes: A41.9 - Sepsis, unspecified organism Disposition: ADMITTED INPATIENT Condition: STABLE Referrals: FRANCI GONZALEZ (PCP) SAVANNA ASIF APRN Oct 15, 2020 15:39
[2020-10-15 15:48] LABS: ALBUMIN 2.8 g/dL (3.4-5.0); ALBUMIN/GLOBULIN RATIO 0.7 (1.0-1.7); CALCIUM 8.2 mg/dL (8.5-10.1); CREATININE 1.7 mg/dL (0.6-1.0); GFR 28.6; POTASSIUM 3.5 mmol/L (3.5-5.1); TOTAL BILIRUBIN 0.6 mg/dL (0.2-1.0); TOTAL PROTEIN 6.6 g/dL (6.4-8.2)
[2020-10-15 16:25] LABS: % BANDS 3 % (0-9); % LYMPHS 10 % (24-48); % MONOS 8 % (0-10); % SEGS 79 % (35-66)
[2020-10-15 16:27] LABS: PLATELET CLUMP PRESENT; PLT ESTIMATE ADEQUATE (ADEQUATE); TOXIC GRANULATION SLIGHT
--- NOTE | 2020-10-15 16:47 | EKG ---
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
[2020-10-15 17:39] LABS: AMORPHOUS SEDIMENT,UR PRESENT /HPF; BACTERIA,URINE FEW /HPF (0-FEW); BILIRUBIN,URINE NEG (NEG); CLARITY,URINE HAZY; COLOR,URINE AMBER; GLUCOSE,URINE NEG (NEG); NITRITE,URINE NEG (NEG); RBC,URINE RARE /HPF (0-2); SQUAMOUS EPITHELIAL CELL,UR OCC /LPF; UROBILINOGEN,URINE 0.2 mg/dL (0.2 mg/dL); WBC,URINE OCC /HPF (0-4)
--- NOTE | 2020-10-15 17:51 | RAD ---
XR CHEST 1V History: Hypotension. Comparison: 10/03/2020 Technique: Portable AP radiograph of the chest. Findings: There is a left chest 2-lead cardiac pacemaker in unchanged position. Partially visualized IVC filter . Lungs are minimally hypo-inflated. There are linear opacities in the left costophrenic angle likely a telectasis. No pleural effusion or pneumothorax. Cardiac silhouette is normal in size with calcificat ion of the aortic arch. Pulmonary vasculature is within normal limits. No acute osseous abnormality. Posterior spinal fixation at T11-T12. Soft tissues are unremarkable. Impression: 1. No acute cardiopulmonary process. Electronically signed by: Coleman Morales MD (10/15/2020 5:48 PM) [facility]
[2020-10-15] MEDS: IV NORMAL SALINE 1,000ML 1,000 ML IV SCH (19:14)
[2020-10-15 22:20] VITALS: BP 122/83
[2020-10-15] MEDS ORDERED: SPIR25TA5 PO (23:26)
[2020-10-15] MEDS ORDERED: LISI40TA6 PO (23:26)
[2020-10-15] MEDS ORDERED: ATORVASTATIN CA80 MG PO (23:26)
[2020-10-15] MEDS ORDERED: METO-239 PO (23:26)
[2020-10-16] MEDS: IV NORMAL SALINE 1,000ML 1,000 ML IV SCH (04:45)
[2020-10-16 05:10] VITALS: BP 145/78
[2020-10-16] MEDS ORDERED: KETOCONAZOLE 2% TOPICAL CREAM 30GM TUBE. TP SCH (09:00)
[2020-10-16] MEDS ORDERED: CARB200T37 PO (10:53)
[2020-10-16] MEDS ORDERED: BACL20TA PO (10:53)
[2020-10-16 11:33] VITALS: BP 146/82
[2020-10-16] MEDS ORDERED: ACETAMINOPHEN 325 MG TABLET PO PRN (14:00)
[2020-10-16] MEDS ORDERED: BACLOFEN 20 MG TABLET PO SCH (14:00)
[2020-10-16] MEDS ORDERED: GABAPENTIN 300 MG CAPSULE. PO SCH (14:30)
[2020-10-16 14:42] LABS: HEMATOCRIT 38.2 % (36.0-47.0); HEMOGLOBIN 12.7 g/dL (12.0-15.5); RED BLOOD COUNT 3.8 x10^6/uL (3.50-5.40); RED CELL DISTRIBUTION WIDTH 14.1 % (11.5-14.5); WHITE BLOOD COUNT 12.6 x10^3/uL (4.0-11.0)
[2020-10-16 14:48] LABS: CALCIUM 8.5 mg/dL (8.5-10.1); CREATININE 0.7 mg/dL (0.6-1.0); GFR 79.7
[2020-10-16 14:54] LABS: ALBUMIN/GLOBULIN RATIO 0.7 (1.0-1.7); TOTAL BILIRUBIN 0.5 mg/dL (0.2-1.0); TOTAL PROTEIN 7.3 g/dL (6.4-8.2)
[2020-10-16] MEDS ORDERED: LISI10TA16 PO (15:09)
--- NOTE | 2020-10-16 17:39 | HP ---
HISTORY OF PRESENT ILLNESS: The patient is an 85-year-old female patient who presented to the Emergency Room of [facility] with hypotension. She apparently was seen by home health nurse at home who stated that her blood pressure was only 70 systolic. The patient does state that she has been dizzy when her pressure was low. She denied any other symptoms. By the time she arrived to the Emergency Room, her blood pressure was 110 mmHg. She was extensively investigated in the Emergency Room and has had lab work and her white cell count was high at 20,900 with manual differential showed 83% neutrophils, 9% lymphocytes and 7% monocytes. Her chemistry showed that her BUN and creatinine were slightly elevated compared to previous values as her baseline creatinine was 0.9 mg/dL and the patient was admitted with hypotension and acute kidney injury. She was given a liter of normal saline, continued at 100 mL per hour. Her chest x-ray was unremarkable and showed no acute cardiopulmonary process. Her urinalysis also was unremarkable, showed no evidence of any leukocyturia and was negative for nitrite and very few bacteria. Her coronavirus by PCR was negative, so no antibiotics were started. The patient was admitted actually to [facility] on 10/01/2020 and was discharged on and she was discharged on a course of amoxicillin 500 mg 3 times a day together with metoprolol, apixaban, aspirin, baclofen, carbamazepine, ferrous sulfate, vitamin D, furosemide, gabapentin, ____, nystatin, Protonix and spironolactone. It was felt that her hypotension is a combination of both dehydration and the fact that she was started on lisinopril at [facility]. PAST MEDICAL HISTORY: Significant for hypertension, atrial fibrillation, gastroesophageal reflux disease. The patient has also bilateral foot drop. She is mostly bedbound, wheelchair bound. PAST SURGICAL HISTORY: Significant for permanent pacemaker placement. FAMILY HISTORY: Noncontributory. SOCIAL HISTORY: She is and lives with her . She does not smoke, drink alcohol or use recreational drugs. ALLERGIES: She has no known drug allergies. MEDICATIONS: Her most recent medications as obtained from the home health agency showed that she was on baclofen 20 mg 3 times a day, ferrous sulfate 325 mg once a day, apixaban 5 mg twice a day. She is on metoprolol succinate 25 mg, takes 12.5 mg twice a day, lisinopril 40 mg once a day, spironolactone 25 mg daily, aspirin 81 mg once a day, acetaminophen 650 mg every 6 hours, carbamazepine 200 mg twice a day, gabapentin 600 mg 3 times a day, furosemide 40 mg daily. She is on Protonix 40 mg once a day, nystatin powder apply topically twice a day, cholecalciferol (vitamin D) 125 mcg once a day, atorvastatin 80 mg at bedtime. REVIEW OF SYSTEMS: As per history of present illness. PHYSICAL EXAMINATION: GENERAL: On arrival to the Emergency Room, the patient looked well and was clearly in no apparent respiratory distress. There was no pallor, jaundice, cyanosis or thyromegaly. No jugular venous distention. No limb edema. VITAL SIGNS: Her heart rate was 87, blood pressure was 87/44, temperature 97.9, respiratory rate was 18 and oxygen saturation was 92% on room air. HEENT: Showed normocephalic, atraumatic. NECK: Supple. HEART: Normal first and second heart sounds, no gallop, rub or murmur. CHEST: Clear to auscultation, no crepitation or rhonchi. ABDOMEN: Distended, soft, nontender. NEUROLOGIC: She was awake, alert, responding appropriately. All her cranial nerves are intact. She moves upper extremities to much good extent than lower extremities. 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 Her intake and output are incompletely recorded. LABORATORY DATA: On arrival, her white cell count was 2900, hemoglobin 12, hematocrit 36, MCV was 101 and platelet is 309,000 with manual differential showed 83% polymorphs, 9% lymphocytes and 7% monocytes. Her chemistry showed a serum sodium 133, potassium 3.5, chloride 99, bicarbonate 29, anion gap of 5, BUN 25, creatinine 1.7. Estimated GFR was 28 mL per minute. Her glucose was 103, calcium was 8.2. Total bilirubin, AST, ALT, alkaline phosphatase were normal. Her total protein was 6.6, albumin was 2.8. Urinalysis was essentially unremarkable and her coronavirus by PCR was negative. ASSESSMENT AND PLAN: The patient was admitted with: 1. Hypotension. 2. Acute kidney injury. She was given a liter of normal saline, continued at 100 mL per hour. We have managed to get the list from her home health agency. I will probably cut down on her lisinopril to perhaps 10 mg once a day instead of 40 and we will repeat her labs tomorrow and if the blood pressure and her kidney function improve, she will be discharged home. I already spoke with her and explained all the findings. CHAD/IZA DR: Sergio TID: [id number]
[2020-10-16] MEDS ORDERED: NYSTATIN TOPICAL POWDER 15GM BOTTLE. TP SCH (21:00)
[2020-10-16] MEDS ORDERED: METOPROLOL SUCC 24HR ER 25 MG TAB.ER.24H. PO SCH (21:00)
[2020-10-16] MEDS ORDERED: ATORVASTATIN CALCIUM 20 MG TABLET PO SCH (21:00)
[2020-10-16] MEDS ORDERED: APIXABAN 5 MG TABLET. PO SCH (21:00)
[2020-10-17] MEDS ORDERED: CHOLECALCIFEROL (VITAMIN D3) 1,000 UNIT TABLET PO SCH (09:00)
[2020-10-17] MEDS ORDERED: ASPIRIN CHEWABLE 81 MG TABLET. PO SCH (09:00)
[2020-10-17] MEDS ORDERED: FUROSEMIDE 40 MG TABLET PO SCH (09:00)
[2020-10-17] MEDS ORDERED: PANTOPRAZOLE 40 MG TABLET. PO SCH (09:00)
[2020-10-17] MEDS ORDERED: SPIRONOLACTONE 25 MG TABLET PO SCH (09:00)
[2020-10-17] MEDS ORDERED: FERROUS SULFATE 325 MG TABLET. PO SCH (09:00)
--- NOTE | 2020-10-21 20:25 | DS ---
DATE OF DISCHARGE: 10/16/2020 HOSPITAL COURSE: Patient is an 85-year-old female patient who presented to the emergency room at [facility] with hypertension. She apparently was seen by her home health nurse at home and her blood pressure there was found to be only 70 systolic. The patient herself complained that she was dizzy, but denied any other symptoms. By the time she arrived to the emergency room, her blood pressure was 110 mmHg. She was extensively investigated in the emergency room, has had lab work and her white cell count was high at 20,900 with a manual differential showed 83% neutrophils, 9% lymphocytes and 7% monocytes. Her chemistry showed that her BUN and creatinine are slightly elevated compared to previous values as her baseline creatinine was 0.9 and on this admission, her creatinine was 1.7. It transpired that the patient was seen at [facility] and she was started on multiple antihypertensive medications. Therefore, we held most of her medications, treated aggressively with IV fluid and she did actually very well. Her lab work showed that her BUN and creatinine came down to 18 and 0.7 and her white cell count is down to 12,600. Her chest x-ray was unremarkable and repeat urinalysis was also unremarkable. She has no evidence of cellulitis both lower extremities. She does have vulvovaginal candidiasis, for which she is getting nystatin treatment. Given that she has stabilized as she was afebrile, there is no obvious source of infection, a decision was made to discharge her back home to continue on all her medications. I cut down her lisinopril from 40 mg to 10 mg only. PHYSICAL EXAMINATION: GENERAL: When I saw her on the day of discharge, she looked well and was clearly in no apparent respiratory distress, was pale, but no jaundice, cyanosis or thyromegaly. No jugular venous distention. No limb edema. VITAL SIGNS: Her heart rate was 71, blood pressure is 146/82, temperature was 98.2, respiratory rate was 18 and oxygen saturation was 92%. HEAD, EYES, EARS, NOSE, AND THROAT: Normocephalic, atraumatic. NECK: Supple. HEART: Showed normal first and second heart sounds, no gallop or murmur. CHEST: Clear to auscultation, no crepitation or rhonchi. ABDOMEN: Distended, soft, nontender, no guarding or rigidity. No organomegaly. All hernial orifice intact. Bowel sounds normal. NEUROLOGIC: She was awake, alert, responding appropriately. All her cranial nerves intact. She moves upper extremities to much good extent than lower extremities. She has functional paraplegia with bilateral foot drop. She is mostly bedbound, wheelchair bound. Her intake over the last 24 hours was 1100, no output was recorded. LABORATORY DATA: On the day of discharge, showed a white cell count of 12,600, hemoglobin 12.7, hematocrit 38, MCV 101 and platelet count of 320,000. Her serum sodium was 134, potassium 4, chloride 98, bicarbonate 25, anion gap of 11, BUN 18, creatinine 0.7. Estimated GFR was 80 mL per minute. His glucose 129, calcium was 8.5. Total bilirubin, AST, ALT, alkaline phosphatase were normal. Total protein 7.3, albumin 3. Urinalysis was essentially unremarkable and her coronavirus by PCR was negative. DISCHARGE MEDICATIONS: She was discharged home to continue lisinopril 10 mg once a day, acetaminophen 650 mg every 6 hours, apixaban for Eliquis 5 mg twice a day, aspirin 81 mg once a day, atorvastatin 80 mg at bedtime, baclofen 20 mg 3 times a day, carbamazepine 200 mg twice a day, cholecalciferol 125 mcg capsule once a day, ferrous sulfate 325 mg twice a day, furosemide 40 mg once a day, gabapentin 600 mg 3 times a day, metoprolol succinate 12.5 mg twice a day and nystatin powder applied topically twice a day, spironolactone 25 mg daily. FINAL DISCHARGE DIAGNOSES: 1. Drug-induced hypotension. 2. Acute kidney injury that has resolved. The patient has multiple other medical problems including hypertension, atrial fibrillation, gastroesophageal reflux disease. She was admitted recently with severe bilateral lower extremity cellulitis that has resolved. LUCINDA DR: Sergio TID: [id number]
== END 2020-10-16 15:45 | disposition home or self-care (01) | DRG 312 ==
LOC: ER 14:45 → 1 SOUTH 18:36
PROVIDERS: ADMIT Internal Medicine; ATTEND Internal Medicine
DX: I95.2 Hypotension due to drugs (principal); N17.0 Acute kidney failure with tubular necrosis; E86.0 Dehydration; I10 Essential (primary) hypertension; I48.91 Unspecified atrial fibrillation; Z95.0 Presence of cardiac pacemaker; K21.9 Gastro-esophageal reflux disease without esophagitis; Z20.822 Contact with and (suspected) exposure to COVID-19; T50.995A Adverse effect of other drugs, medicaments and biological substances, initial encounter; B37.3 Candidiasis of vulva and vagina
CPT/HCPCS: 36415; 71045; 80053; 81001; 85007; 85025; 85027; 87040; 87426; 93005; 96360; 96361; U0003; 97530; 99285-25; J7030

== ENCOUNTER 2021-01-31 22:36 | Emergency (ER) | payer MEDICARE, OTHER ==
[~2021-01-31] VITALS: Ht 157.5 cm; Wt 67.0 kg
[~2021-01-31 22:36] MED LIST changes: +ATORVASTATIN CA80 MG PO; +BACL20TA PO; +CARB200T37 PO; +LISI10TA16 PO; +LISI40TA6 PO; +SPIR25TA5 PO
[2021-01-31] MEDS ORDERED: OXYMETAZOLINE 0.05% NASAL SPRAY 30ML BOTTLE. NS ONE (23:00)
--- NOTE | 2021-01-31 23:04 | PHYS DOC ---
Past History Past Medical History: A-Fib Additional Past Medical Histor: Cellulitis; Pacemaker Past Surgical History: No Surgical History, Pacemaker Alcohol Use: None Adult General HPI HPI Patient is an 85-year-old female, not on anticoagulation with blood pressure control who presents with a chief complaint of nosebleed. States that about an hour before coming into the emergency department she started having a nosebleed out of the right side of her nose. States it lasted about 30 minutes and then stopped. States it did stop before coming to the emergency department but wanted to come in anyway to have it looked at. Denies any recent traumas, travels, illnesses, fevers, pain or trouble swallowing, chest pain, shortness of breath, abdominal pain, nausea, vomiting. Review of Systems Review of Systems Review of systems otherwise unremarkable except noted in HPI Allergies Allergies Allergies Coded Allergies Type Severity Reaction Last Updated Verified No Known Drug Allergies 09/25/20 No Physical Exam Physical Exam Constitutional: Well developed, well nourished, no acute distress, non-toxic appearance. [] HENT: Normocephalic, atraumatic, bilateral external ears normal, oropharynx moist, no oral exudates, dried blood in right nare [] Eyes: conjunctiva normal, no discharge. [] Neck: Normal range of motion, no tenderness, supple, no stridor. [] Cardiovascular:Heart rate regular rhythm, no murmur [] Lungs & Thorax: Bilateral breath sounds clear to auscultation [] Abdomen: soft, no tenderness, no masses, no pulsatile masses. [] Skin: Warm, dry, no erythema, no rash. [] Neurologic: Alert and oriented X 3, normal motor function, normal sensory function, no focal deficits noted. [] Psychologic: Affect normal, judgement normal, mood normal. [] EKG EKG [] Radiology/Procedures Radiology/Procedures [] Heart Score C/O Chest Pain: No Risk Factors: Risk Factors: DM, Current or recent (<one month) smoker, HTN, HLP, family history of CAD, obesity. Risk Scores: Risk Factors: DM, Current or recent (<one month) smoker, HTN, HLP, family history of CAD, obesity. Course & Med Decision Making Course & Med Decision Making Patient is an 85-year-old female who presents with for epistaxis Vitals not concerning. Physical exam noted above. Bleeding had stopped upon arrival to the ED. Discussed strategies for controlling epistaxis at home including Afrin. Advised to follow-up with primary care physician to update on ED visit. Gave strict return precautions to the ED. Patient grateful, verbalized understanding and agreed with plan of discharge. Dragon Disclaimer Dragon Disclaimer This electronic medical record was generated, in whole or in part, using a voice recognition dictation system. Departure Departure: Impression: Primary Impression: Bloody nose Disposition: HOME / SELF CARE / HOMELESS Condition: GOOD Referrals: FRANCI GONZALEZ (PCP) Patient Instructions: Nosebleed Additional Instructions: Thank you for coming into the emergency department tonight and allowing us to take care of you. Please read the attached information carefully to go back over some of the things we discussed and strategies for controlling nosebleeds at home. Please follow-up with your primary care physician as soon as you can to update on your ED visit and set up a follow-up as needed. Please come back with new or concerning symptoms as we discussed. JUAN JOAQUIN MD Jan 31, 2021 23:04
[2021-01-31 23:25] VITALS: BP 150/76
== END 2021-01-31 23:25 | disposition home or self-care (01) ==
LOC: ER 22:36
DX: R04.0 Epistaxis (principal); I48.91 Unspecified atrial fibrillation; Z95.0 Presence of cardiac pacemaker
CPT/HCPCS: 99284

== ENCOUNTER 2021-02-03 15:58 | Emergency (ER) | payer MEDICARE, OTHER ==
[~2021-02-03] VITALS: Ht 160 cm; Wt 69.5 kg
--- NOTE | 2021-02-03 16:32 | PHYS DOC ---
Past History Past Medical History: A-Fib Additional Past Medical Histor: pacer,mI, heart stents (COBY NI DO) Past Surgical History: Pacemaker, Other Additional Past Surgical Histo: cardiac stents (COBY NI DO) Alcohol Use: Occasionally (COBY NI DO) Adult General Chief Complaint Chief Complaint: ABNORMAL LABS [facility] HPI Patient is a 85-year-old female presenting with for abnormal labs. Patient and are poor historians and so history is limited. It sounds as though patient was recently transition from Eliquis due to lack of monetary means to obtain this to warfarin for anticoagulation for longstanding atrial fibrillation. [facility] patient has been on warfarin and home health visit today for routine INR check yielded a value of 8.0. There was subsequently contacted and notified to immediately present to ER for evaluation. On arrival, patient has no complaints. [facility] she is fatigued and experienced a nosebleed yesterday that was self-limiting in nature. She admits history of cardiac disease with numerous stents and atrial fibrillation, no artificial heart valves or history of blood clots (COBY NI DO) Review of Systems Review of Systems Fourteen body systems of review of systems have been reviewed. See HPI for pertinent positives and negative responses, other judd all other systems are negative, non-pertinent or non-contributory (COBY NI DO) Allergies Allergies Allergies Coded Allergies Type Severity Reaction Last Updated Verified Penicillins Allergy Unknown Unknown 01/31/21 Yes (COBY NI DO) Physical Exam Physical Exam Constitutional: Well developed, well nourished, age-appropriate, no acute distress, non-toxic appearance. HENT: Normocephalic, atraumatic, bilateral external ears normal, oropharynx moist, no oral exudates, nose normal. Eyes: PERRLA, EOMI, conjunctiva normal, no discharge. Neck: Normal range of motion, no tenderness, supple, no stridor. Cardiovascular: Heart rate regular, sinus rhythm, no murmurs rubs or gallops Lungs & Thorax: Bilateral breath sounds clear to auscultation Abdomen: Bowel sounds normal, soft, no tenderness, no masses, no pulsatile masses. Nonsurgical abdomen, no peritoneal signs Skin: Warm, dry, no erythema, no rash. Back: No tenderness, no CVA tenderness. Extremities: No tenderness, no cyanosis, no clubbing, ROM intact, no edema. Neurologic: Alert and oriented X 3, grossly normal motor & sensory function, no focal deficits noted. Psychologic: Affect normal, judgement normal, mood normal. (COBY NI DO) Current Patient Data Vital Signs Vital Signs Date Time Temp Pulse Resp B/P (MAP) Pulse Ox O2 Delivery O2 Flow Rate FiO2 02/03/21 16:07 98.0 92 18 108/64 (79) 95 Room Air (COBY NI DO) EKG EKG [] (COBY NI DO) Radiology/Procedures Radiology/Procedures [] (COBY NI DO) Heart Score C/O Chest Pain: No Risk Factors: Risk Factors: DM, Current or recent (<one month) smoker, HTN, HLP, family history of CAD, obesity. Risk Scores: Risk Factors: DM, Current or recent (<one month) smoker, HTN, HLP, family history of CAD, obesity. (COBY NI DO) Course & Med Decision Making Course & Med Decision Making ABCs unremarkable HPI physical exam and comprehensive ER work-up obtained concerning for INR Patient's pharmacy contacted given your history by both patient and at bedside. Appears patient was only given 3 tablets of 10 mg warfarin dispensed January 26 per pharmacy report? Patient and spouse are unsure if patient has been taking more than this at home At this time in care, still pending laboratory analysis to result. Comprehensive signout given to oncoming nighttime physician. Please defer to Dr. Rodriguez's documentation regarding future care of patient in ER setting (COBY NI DO) Course & Med Decision Making The patient CBC is unremarkable. Her hemoglobin is normal. She has no active site of bleeding. Her INR is 5.5 which is significantly better than the 8 by i- STAT from home health nurse. She is not taking Coumadin at this time so it should continue to decrease. I suspect one of her other medications may have interacted with the Coumadin to extend its duration. She will follow-up with her primary physician to establish an appropriate Coumadin regimen or an alternative medication. She is stable for discharge at this time. (JAMEY RODRIGUEZ DO) Dragon Disclaimer Dragon Disclaimer This electronic medical record was generated, in whole or in part, using a voice recognition dictation system. (COBY NI DO) Departure Departure: Impression: Primary Impression: Elevated INR Disposition: HOME / SELF CARE / HOMELESS Condition: STABLE Referrals: FRANCI GONZALEZ (PCP) Patient Instructions: Prothrombin Time, International Normalized Ratio COBY NI DO Feb 03, 2021 16:32 JAMEY RODRIGUEZ DO Feb 03, 2021 18:22
[2021-02-03] MEDS ORDERED: HYDR25TA PO (16:34)
[2021-02-03 17:56] LABS: BASO # 0.1 x10^3/uL (0.0-0.2); BASO % 1 % (0-3); EOS # 0.2 x10^3/uL (0.0-0.7); EOS % 3 % (0-3); HEMOGLOBIN 12.8 g/dL (12.0-15.5); LYMPH # 1.3 x10^3/uL (1.0-4.8); LYMPH % 16 % (24-48); MEAN CORPUSCULAR HEMOGLOBIN 35 pg (25-35); MEAN CORPUSCULAR HGB CONC 34 g/dL (31-37); MEAN CORPUSCULAR VOLUME 103 fL (79-100); MONO # 0.7 x10^3/uL (0.0-1.1); MONO % 8 % (0-9); NEUT # 6.3 x10^3uL (1.8-7.7); NEUT % 73 % (31-73); PLATELET COUNT 260 x10^3/uL (140-400); RED BLOOD COUNT 3.68 x10^6/uL (3.50-5.40); RED CELL DISTRIBUTION WIDTH 14.3 % (11.5-14.5); WHITE BLOOD COUNT 8.6 x10^3/uL (4.0-11.0)
[2021-02-03 18:00] VITALS: BP 126/68
== END 2021-02-03 18:00 | disposition home or self-care (01) ==
LOC: ER 16:05
DX: R79.9 Abnormal finding of blood chemistry, unspecified (principal); R04.0 Epistaxis; R53.83 Other fatigue; I48.91 Unspecified atrial fibrillation; Z95.0 Presence of cardiac pacemaker; Z88.0 Allergy status to penicillin
CPT/HCPCS: 36415; 85025; 85610; 85730; 99283

== ENCOUNTER 2021-02-05 09:55 | Inpatient (IN) | payer MEDICARE, OTHER ==
[~2021-02-05] VITALS: Ht 160 cm; Wt 65.8 kg
[~2021-02-05 09:55] MED LIST changes: +HYDR25TA PO
--- NOTE | 2021-02-05 10:18 | PHYS DOC ---
Past History Past Medical History: A-Fib Additional Past Medical Histor: pacer,mI, heart stents Past Surgical History: Pacemaker, Other Additional Past Surgical Histo: cardiac stents Alcohol Use: None Adult General Chief Complaint Chief Complaint: WEAKNESS/GENERALIZED HPI HPI Patient is a 85-year-old female presenting via EMS for lethargy. This is been an acute on chronic issue. Patient lives at home with , patient is a poor historian and so, all of history obtained from EMS. They report that patient has not had any trauma, changes in medication, ingestions or concerning exposures as of late but reported that patient has been more lethargic and unable to perform typical activities of daily living which she once was within past week. Nothing known makes better or worse. Patient has not been e ating or drinking much as well, it is unknown if she has been taking her medications. She remains alert and oriented to self but has become increasingly more confused per prompting him to call EMS for transport to our facility today. On arrival to scene, EMS report patient was hemodynamically stable with an unremarkable [id number] glucose. She was subsequently taken t o our ER for evaluation. On arrival, patient alert and oriented to person only, has no complaints Review of Systems Review of Systems Fourteen body systems of review of systems have been reviewed. See HPI for pertinent positives and negative responses, other judd all other systems are negative, non-pertinent or non-contributory Allergies Allergies Allergies Coded Allergies Type Severity Reaction Last Updated Verified Penicillins Allergy Unknown Unknown 01/31/21 Yes Physical Exam Physical Exam Constitutional: Age-appropriate, no acute distress but appears somnolent and toxic on arrival, is responsive to verbal stimuli. GCS 14 (E4, V4, M6) HENT: Normocephalic, atraumatic, bilateral external ears normal, oropharynx moist, no oral exudates, nose normal. Eyes: PERRLA, EOMI, conjunctiva normal, no discharge. Neck: Normal range of motion, no tenderness, supple, no stridor. Cardiovascular: Heart rate regular, sinus rhythm, no murmurs rubs or gallops. Pacemaker present to left upper outer chest Lungs & Thorax: Bilateral breath sounds clear to auscultation Abdomen: Bowel sounds normal, soft, no tenderness, no masses, no pulsatile mas ses. Nonsurgical abdomen, no peritoneal signs Skin: Warm, dry, no rash. There is erythema to bilateral lower extremities at level of distal knees to feet Back: No tenderness, no CVA tenderness. Extremities: No tenderness, no cyanosis, no clubbing, ROM intact, 2+ pitting edema to bilateral lower extremities with poor toenail skin care to bilateral feet Neurologic: Alert and oriented to person only, grossly normal motor & sensory function, no focal deficits noted. Psychologic: Affect normal, judgement normal, mood normal. Current Patient Data Vital Signs Vital Signs Date Time Temp Pulse Resp B/P (MAP) Pulse Ox O2 Delivery O2 Flow Rate FiO2 02/05/21 09:58 127 12 156/98 (117) 98 Room Air Vital Signs Date Time Temp Pulse Resp B/P (MAP) Pulse Ox O2 Delivery O2 Flow Rate FiO2 02/05/21 11:00 133 14 136/75 (95) 98 Room Air Lab Results Laboratory Tests Test 02/05/21 10:07 02/05/21 10:25 02/05/21 10:52 02/05/21 11:20 Glucose (Fingerstick) 79 mg/dL Bedside Venous pH 7.33 Bedside Venous pCO2 46 mmHg Bedside Venous pO2 42 mmHg Venous Blood HCO3 24 mmol/L POC Venous O2 Saturation (Wendy) 74 % Bedside FiO2 21 White Blood Count 8.3 x10^3/uL Red Blood Count 3.72 x10^6/uL Hemoglobin 12.7 g/dL Hematocrit 38.2 % Mean Corpuscular Volume 103 fL Mean Corpuscular Hemoglobin 34 pg Mean Corpuscular Hemoglobin Concent 33 g/dL Red Cell Distribution Width 13.4 % Platelet Count 255 x10^3/uL Neutrophils (%) (Auto) 70 % Lymphocytes (%) (Auto) 18 % Monocytes (%) (Auto) 8 % Eosinophils (%) (Auto) 3 % Basophils (%) (Auto) 1 % Neutrophils # (Auto) 5.8 x10^3uL Lymphocytes # (Auto) 1.5 x10^3/uL Monocytes # (Auto) 0.7 x10^3/uL Eosinophils # (Auto) 0.2 x10^3/uL Basophils # (Auto) 0.0 x10^3/uL Sodium Level 140 mmol/L Potassium Level 4.8 mmol/L Chloride Level 104 mmol/L Carbon Dioxide Level 25 mmol/L Anion Gap 11 Blood Urea Nitrogen 61 mg/dL Creatinine 1.7 mg/dL Estimated GFR (Cockcroft-Gault) 28.6 BUN/Creatinine Ratio 36 Glucose Level 89 mg/dL Lactic Acid Level 0.6 mmol/L Calcium Level 8.8 mg/dL Total Bilirubin 0.9 mg/dL Aspartate Amino Transf (AST/SGOT) 24 U/L Alanine Aminotransferase (ALT/SGPT) 27 U/L Alkaline Phosphatase 94 U/L Ammonia 16 mcmol/L Total Protein 7.3 g/dL Albumin 3.7 g/dL Albumin/Globulin Ratio 1.0 Influenza Type A (Rapid) Negative Influenza Type B (Rapid) Negative SARS-CoV-2 Antigen (Rapid) Negative Test 02/05/21 13:15 Urine Collection Type U cath Urine Color Yellow Urine Clarity Clear Urine pH 5.5 Urine Specific [place] 1.010 Urine Protein Neg Urine Glucose (UA) Neg mg/dL Urine Ketones (Stick) Neg mg/dL Urine Blood Trace Urine Nitrite Neg Urine Bilirubin Neg Urine Urobilinogen Dipstick 0.2 mg/dL Urine Leukocyte Esterase Neg Urine RBC 0 /HPF Urine WBC 0 /HPF Urine Squamous Epithelial Cells Occ /LPF Urine Bacteria 0 /HPF Current Medications Medications (Trade) Dose Ordered Sig/Zarina Route PRN Reason Start Time Stop Time Status Last Admin Dose Admin Acetaminophen (Tylenol) 650 mg PRN Q4HRS PRN PO FEVER > 100.3'F 02/05/21 14:00 02/06/21 13:59 Nitroglycerin (Nitrostat) 0.4 mg PRN Q5MIN PRN SL CHEST PAIN 02/05/21 14:00 02/06/21 13:59 EKG EKG EKG ordered and interpreted by myself at 1014 hrs. as sinus rhythm at 76 bpm, prolonged MS at 212 and prolonged QTC at 518, left axis deviation, no obvious ischemic findings, no STEMI Radiology/Procedures Radiology/Procedures EXAMINATION: CT HEAD/BRAIN WO CLINICAL HISTORY: Decreased mental status TECHNIQUE: Serial axial images without IV contrast were obtained from the vertex to the foramen magnum. CT Dose Reduction Employed: One or more of the following individualized dose reduction techniques were utilized for this examination: 1. Automated exposure control 2. Adjustment of the mA and/or kV according to patient size 3. Use of iterative reconstruction technique. COMPARISON: 10/03/2020 FINDINGS: Acute Change: No evidence of an acute infarct or other acute parenchymal process. Hemorrhage: No evidence of acute intracranial hemorrhage. Mass Lesion/Mass Effect: No evidence of intracranial mass or extraaxial fluid collection. No significant mass effect. 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 Scattered patchy foci of hypoattenuation in the supratentorial white matter, nonspecific but likely represents mild microvascular ischemia. Atherosclerotic calcification of the anterior and posterior circulation. Parenchyma: Moderate generalized volume loss, asymmetrically prominent in the frontal lobes. Ventricles: Ventricular enlargement concordant with degree of parenchymal volume loss. Paranasal Sinuses and Skull Base: Visualized paranasal sinuses clear. Visualized skull base and soft tissues unremarkable. IMPRESSION: No evidence of acute intracranial abnormality or significant interval change. Electronically signed by: Moreno Villegas DO (02/05/2021 12:31 PM) [id number] ///////////////// XR CHEST 1V History: Lethargy Comparison: 10/15/2020 Technique: Portable AP radiograph of the chest. Findings: Mild hypoinflation. Left chest 2-lead cardiac pacemaker. Mild prominence of the pulmonary interstitial markings. No focal consolidation, pleural effusion or pneumothorax. The cardiac silhouette is normal in size. Calcification of the aorta. Posterior fusion at T11-T12. No acute osseous abnormality. Degenerative changes of the shoulders. Impression: 1. Hypoinflation with increased coronary interstitial markings likely related to vascular crowding and mild vascular congestion. Diffuse infiltrate cannot be excluded in the appropriate clinical setting. Electronically signed by: Coleman Morales MD (02/05/2021 11:54 AM) [id number] Heart Score C/O Chest Pain: No HEART Score for Chest Pain: HEART Score for Chest Pain Response (Comments) Value History Moderately Suspicious 1 ECG Nonspecific Repolarizatio 1 Age > 65 2 Risk Factors >3 Risk Factors or Hx CAD 2 Total 6 Risk Factors: Risk Factors: DM, Current or recent (<one month) smoker, HTN, HLP, family history of CAD, obesity. Risk Scores: Risk Factors: DM, Current or recent (<one month) smoker, HTN, HLP, family history of CAD, obesity. Course & Med Decision Making Course & Med Decision Making ABCs unremarkable despite reported heart rate of 127, this was air on machine picking at both QRS and T wave on limb leads HPI from patient limited, physical exam and comprehensive ER work-up nonconcerning for any emergent or surgical issues With that said, conversation was had with patient and at bedside. She is not at her baseline. There have been no trauma, falls or other concerning precipitating events. I am concerned source of patient's metabolic encephalopathy as her bilateral lower extremity cellulitis I discussed need to start antibiotics and admit for further inpatient medical management, patient and were amenable. I contacted hospitalist, Dr. Pereira who ultimately accepted patient under his care Gretchen Disclaimer Gretchen Disclaimer This electronic medical record was generated, in whole or in part, using a voice recognition dictation system. Departure Departure: Impression: Primary Impression: Altered mental state Additional Impressions: Metabolic encephalopathy Bilateral lower leg cellulitis Disposition: ADMITTED INPATIENT Admitting Physician: Jace Pereira Condition: STABLE Referrals: FRANCI GONZALEZ (PCP) Problem Qualifiers COBY NI DO Feb 05, 2021 10:18
[2021-02-05 11:09] LABS: BASO % 1 % (0-3); EOS # 0.2 x10^3/uL (0.0-0.7); EOS % 3 % (0-3); HEMATOCRIT 38.2 % (36.0-47.0); HEMOGLOBIN 12.7 g/dL (12.0-15.5); LYMPH # 1.5 x10^3/uL (1.0-4.8); LYMPH % 18 % (24-48); MEAN CORPUSCULAR HEMOGLOBIN 34 pg (25-35); MEAN CORPUSCULAR HGB CONC 33 g/dL (31-37); MEAN CORPUSCULAR VOLUME 103 fL (79-100); MONO # 0.7 x10^3/uL (0.0-1.1); MONO % 8 % (0-9); NEUT # 5.8 x10^3uL (1.8-7.7); NEUT % 70 % (31-73); PLATELET COUNT 255 x10^3/uL (140-400); RED BLOOD COUNT 3.72 x10^6/uL (3.50-5.40); RED CELL DISTRIBUTION WIDTH 13.4 % (11.5-14.5); WHITE BLOOD COUNT 8.3 x10^3/uL (4.0-11.0)
[2021-02-05 11:20] LABS: CALCIUM 8.8 mg/dL (8.5-10.1); CREATININE 1.7 mg/dL (0.6-1.0); GFR 28.6; POTASSIUM 4.8 mmol/L (3.5-5.1)
[2021-02-05 11:33] LABS: ALBUMIN 3.7 g/dL (3.4-5.0); TOTAL BILIRUBIN 0.9 mg/dL (0.2-1.0); TOTAL PROTEIN 7.3 g/dL (6.4-8.2)
[2021-02-05 11:50] LABS: INFLUENZA A PATIENT NEGATIVE (NEGATIVE); INFLUENZA B PATIENT NEGATIVE (NEGATIVE)
--- NOTE | 2021-02-05 11:54 | EKG ---
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
--- NOTE | 2021-02-05 11:57 | RAD ---
XR CHEST 1V History: Lethargy Comparison: 10/15/2020 Technique: Portable AP radiograph of the chest. Findings: Mild hypoinflation. Left chest 2-lead cardiac pacemaker. Mild prominence of the pulmonary interstitia l markings. No focal consolidation, pleural effusion or pneumothorax. The cardiac silhouette is judith l in size. Calcification of the aorta. Posterior fusion at T11-T12. No acute osseous abnormality. Deg enerative changes of the shoulders. Impression: 1. Hypoinflation with increased coronary interstitial markings likely related to vascular crowding a nd mild vascular congestion. Diffuse infiltrate cannot be excluded in the appropriate clinical settin g. Electronically signed by: Coleman Morales MD (02/05/2021 11:54 AM) [id number]
--- NOTE | 2021-02-05 12:33 | RAD ---
EXAMINATION: CT HEAD/BRAIN WO CLINICAL HISTORY: Decreased mental status TECHNIQUE: Serial axial images without IV contrast were obtained from the vertex to the foramen magnu m. CT Dose Reduction Employed: One or more of the following individualized dose reduction techniques brittaney galvin utilized for this examination: 1. Automated exposure control 2. Adjustment of the mA and/or kV ac cording to patient size 3. Use of iterative reconstruction technique. COMPARISON: 10/03/2020 FINDINGS: Acute Change: No evidence of an acute infarct or other acute parenchymal process. Hemorrhage: No evidence of acute intracranial hemorrhage. Mass Lesion/Mass Effect: No evidence of intracranial mass or extraaxial fluid collection. No signific ant mass effect. Chronic Change: Mild encephalomalacia in the inferomedial left occipital lobe, similar prior study alexus harvey related to remote infarct. Scattered patchy foci of hypoattenuation in the supratentorial white matter, nonspecific but likely represents mild microvascular ischemia. Atherosclerotic calcification of the anterior and posterior circulation. Parenchyma: Moderate generalized volume loss, asymmetrically prominent in the frontal lobes. Ventricles: Ventricular enlargement concordant with degree of parenchymal volume loss. Paranasal Sinuses and Skull Base: Visualized paranasal sinuses clear. Visualized skull base and soft tissues unremarkable. IMPRESSION: No evidence of acute intracranial abnormality or significant interval change. Electronically signed by: Moreno Villegas DO (02/05/2021 12:31 PM) [id number]
[2021-02-05] MEDS ORDERED: NITROGLYCERIN SUBLINGUAL 0.4 MG BOTTLE OF 25. SL PRN (14:00)
[2021-02-05] MEDS ORDERED: ACETAMINOPHEN 325 MG TABLET PO PRN (14:00)
[2021-02-05 14:06] LABS: BACTERIA,URINE 0 /HPF (0-FEW); BILIRUBIN,URINE NEG (NEG); CLARITY,URINE CLEAR; COLOR,URINE YELLOW; GLUCOSE,URINE NEG (NEG); NITRITE,URINE NEG (NEG); RBC,URINE 0 /HPF (0-2); SQUAMOUS EPITHELIAL CELL,UR OCC /LPF; UROBILINOGEN,URINE 0.2 mg/dL (0.2 mg/dL); WBC,URINE 0 /HPF (0-4)
[2021-02-05] MEDS ORDERED: CLINDAMYCIN 600MG PREMIX 50 ML IV ONE (14:30)
[2021-02-05 16:38] VITALS: BP 105/61
--- NOTE | 2021-02-05 16:56 | NUR ---
Nursing note PT admitted to the floor from the emergency department by anushka griffith. Arrived on the floor on Monday02/05/21 and placed in room, admission questions asked and a documented, vitals signs taken and documented. Call light within reach, bed low, PT verbalized no other needs.
[2021-02-05] MEDS: IV DEXTROSE 5% 1,000 ML IV SCH (18:14)
[2021-02-05] MEDS: ACETAMINOPHEN 325 MG TABLET PO PRN (18:25)
[2021-02-05 20:04] VITALS: BP 129/74
[2021-02-05] MEDS: ATORVASTATIN CALCIUM 20 MG TABLET PO SCH (20:08)
[2021-02-05] MEDS: GABAPENTIN 300 MG CAPSULE. PO SCH (20:08)
[2021-02-05] MEDS: METOPROLOL SUCC 24HR ER 25 MG TAB.ER.24H. PO SCH (20:09)
[2021-02-05] MEDS: NYSTATIN TOPICAL POWDER 15GM BOTTLE. TP SCH (20:09)
[2021-02-05] MEDS: BACLOFEN 20 MG TABLET PO SCH (20:09)
--- NOTE | 2021-02-05 23:31 | HP ---
DATE OF SERVICE: 02/05/2021 ADMIT DATE: 02/05/2021 SUBJECTIVE: The patient is an 85-year-old female patient who was brought to the Emergency Room via EMS for lethargy. This has been an acute on chronic issue. The patient lives at home with her . She is a poor historian, so all her history was obtained from the EMS. They reports the patient has not had any trauma, change in medication ingestion or concerning exposure as of late, but reported that the patient has been more lethargic, unable to perform typical activities of daily living, which she once was within past week. Nothing known makes better or worse. She has not been eating or drinking as much as well. It is unknown if she has been taking her medications. She remains alert and oriented to self, but has become increasingly more confused. Her prompting him to call EMS for transport to our facility. On arrival to the scene, EMS report patient was hemodynamically stable with unremarkable an point of care glucose. She was subsequently brought to the Emergency Room for evaluation. On arrival, the patient was alert, oriented to person only, has no complaints, although when I did ask her, she did complain of pain in her legs. She was extensively evaluated in the Emergency Room and has had lab work, which showed that her white cell count was normal. Her blood gases showed mild acidosis. Her chemistry was unremarkable. Her lactic acid was only 0.6. Her BUN and creatinine are slightly elevated, which is obviously more elevated than usual as her baseline creatinine was 0.9. On 10/16, her BUN was only 0.7 and her BUN has dramatically risen from 18-61. The patient was admitted with acute kidney injury as well as bilateral lower extremity cellulitis. We will start her on IV fluid as well as IV clindamycin and we will reconcile all her medications. PAST MEDICAL HISTORY: Significant for hypertension, atrial fibrillation, gastroesophageal reflux disease. The patient has bilateral foot drops. She is mostly bedbound, wheelchair bound. PAST SURGICAL HISTORY: Significant for permanent pacemaker placement. FAMILY HISTORY: Noncontributory. SOCIAL HISTORY: She is and lives with her . She does not smoke, drink alcohol or do recreational drugs. ALLERGIES: She has no known drug allergies. MEDICATIONS: She is currently on the following medications: She is on baclofen 20 mg 3 times a day, ferrous sulfate 325 mg daily, metoprolol succinate 12.5 mg twice a day, lisinopril 10 mg once a day, spironolactone 25 mg once a day, aspirin 81 mg once a day, acetaminophen 650 mg every 6 hours, gabapentin 600 mg 3 times a day, hydroxyzine 100 mg at bedtime, furosemide 40 mg daily. She is on Protonix 40 mg daily, nystatin powder twice a day, cholecalciferol, vitamin D 125 mcg once a day and atorvastatin calcium 80 mg at bedtime. REVIEW OF SYSTEMS: As per history of present illness. PHYSICAL EXAMINATION: GENERAL: On arrival to the Emergency Room, she looked somewhat pale, but not jaundiced, cyanosed or thyromegaly. No jugular venous distention. No limb edema. VITAL SIGNS: Her heart rate was 127, blood pressure was 156/98, temperature was 97.1, respiratory rate was 12 and oxygen saturation was 98%. HEAD, EYES, EARS, NOSE, AND THROAT: Normocephalic, atraumatic. NECK: Supple. HEART: Normal first and second heart sounds. No gallop, rub or murmur. CHEST: Clear to auscultation, no crepitation or rhonchi. ABDOMEN: Scaphoid, soft, nontender. No guarding or rigidity. No organomegaly. All hernial orifice intact. Bowel sounds normal. NEUROLOGIC: She is awake, alert, responding appropriately. All cranial nerves intact. EXTREMITIES: She moves upper extremities to much greater extent than lower extremities. She has bilateral footdrop. She has erythema involving both lower extremities and they are hot to touch. LABORATORY DATA: Her lab work on arrival to the Emergency Room showed a white cell count of 8300, hemoglobin 12.7, hematocrit 38, MCV 103 and platelet count of 255,000 with normal manual differential. Her chemistry showed a serum sodium 140, potassium 4.8, chloride 104, bicarbonate 25, anion gap of 11, BUN 61, creatinine 1.7. Estimated GFR was 28 mL per minute. Her glucose was 89, calcium was 8.8. Total bilirubin, AST, ALT, alkaline phosphatase were normal. His ammonia was 16. Total protein was 7.3, albumin 3.7. Her urinalysis was essentially unremarkable and her coronavirus by rapid testing was negative. She has been fully vaccinated. Her influenza A and B were negative. ASSESSMENT: In summary, this is an 85-year-old female patient who was admitted with altered mental status. She has acute kidney injury. His BUN and creatinine has risen to 61 and 1.7 from 0.9 and 18. She has bilateral lower extremity cellulitis, atrial fibrillation with rapid ventricular response. On arrival, she has also hypertension, hyperlipidemia. PLAN: My plan is to continue with IV clindamycin, was started on IV fluid and monitor her labs and decide on further management accordingly. GRECIA DR: Sergio TID: [id number]
[2021-02-06] VITALS: BP 116/71
[2021-02-06 00:34] VITALS: BP 117/77
[2021-02-06] MEDS: IV DEXTROSE 5% 1,000 ML IV SCH ×3 (05:10→23:45)
[2021-02-06 06:00] VITALS: BP 129/57
[2021-02-06] MEDS ORDERED: CLINDAMYCIN 600MG PREMIX 50 ML IV SCH (07:00)
[2021-02-06] MEDS: CLINDAMYCIN 600MG PREMIX 50 ML IV SCH ×3 (07:40→21:02)
[2021-02-06] MEDS: CHOLECALCIFEROL (VITAMIN D3) 1,000 UNIT TABLET PO SCH (08:51)
[2021-02-06] MEDS: METOPROLOL SUCC 24HR ER 25 MG TAB.ER.24H. PO SCH ×2 (08:52→21:01)
[2021-02-06] MEDS: GABAPENTIN 300 MG CAPSULE. PO SCH ×3 (08:52→21:02)
[2021-02-06] MEDS: FERROUS SULFATE 325 MG TABLET. PO SCH (08:52)
[2021-02-06] MEDS: BACLOFEN 20 MG TABLET PO SCH ×3 (08:52→21:01)
[2021-02-06] MEDS: ASPIRIN CHEWABLE 81 MG TABLET. PO SCH (08:52)
[2021-02-06] MEDS: PANTOPRAZOLE 40 MG TABLET. PO SCH (08:52)
[2021-02-06] MEDS: NYSTATIN TOPICAL POWDER 15GM BOTTLE. TP SCH ×2 (08:53→21:15)
[2021-02-06] MEDS ORDERED: FUROSEMIDE 40 MG TABLET PO SCH (09:00)
[2021-02-06] MEDS ORDERED: SPIRONOLACTONE 25 MG TABLET PO SCH (09:00)
[2021-02-06 10:36] VITALS: BP 120/76
[2021-02-06] MEDS ORDERED: APIX5TAB3 PO (10:46)
[2021-02-06 11:09] LABS: ALBUMIN 3.2 g/dL (3.4-5.0); ALBUMIN/GLOBULIN RATIO 0.8 (1.0-1.7); CALCIUM 8.7 mg/dL (8.5-10.1); CREATININE 1.5 mg/dL (0.6-1.0); GFR 33.1; POTASSIUM 5.2 mmol/L (3.5-5.1); TOTAL BILIRUBIN 0.9 mg/dL (0.2-1.0); TOTAL PROTEIN 7.1 g/dL (6.4-8.2)
[2021-02-06 11:56] LABS: HEMATOCRIT 40.2 % (36.0-47.0); HEMOGLOBIN 13.1 g/dL (12.0-15.5); RED BLOOD COUNT 3.73 x10^6/uL (3.50-5.40); RED CELL DISTRIBUTION WIDTH 14.6 % (11.5-14.5)
--- NOTE | 2021-02-06 13:25 | PN ---
SUBJECTIVE: The patient is resting, slightly propped up in bed, in no apparent respiratory distress. She is awake, alert, denied any complaint. The nursing staff did not voice any concern, stated that she had generally uneventful night. PHYSICAL EXAMINATION: GENERAL: When I examined her, she was pale, but not jaundiced, cyanosed, no lymphadenopathy, no thyromegaly, no jugular venous distention. No lower limb edema. VITAL SIGNS: Her heart rate was 80, blood pressure 120/76, temperature 97.8, respiratory rate 20, and oxygen saturation was 90% on room air. HEAD, EYES, EARS, NOSE, AND THROAT: Normocephalic, atraumatic. NECK: Supple. HEART: Normal first and second heart sounds. No gallop, rub or murmur. CHEST: Clear to auscultation, no crepitation or rhonchi. ABDOMEN: Distended, soft, nontender. NEUROLOGIC: She is awake, alert, responding appropriately. All cranial nerves intact. She moves upper extremities to much good extent than her lower extremities. She has marked muscle wasting and bilateral foot drop. She continued to have bilateral lower extremity cellulitis. Her intake over the last 24 hours and output are incompletely recorded. LABORATORY DATA: Her lab work this morning showed a white cell count of 9000, hemoglobin 13, hematocrit 40, MCV 108 and platelet count 215,000. Her chemistry still pending at the time of this dictation. ASSESSMENT: 1. Bilateral lower extremity cellulitis. 2. Acute kidney injury. 3. Altered mental status. 4. The patient has multiple other medical problems including: A. Hypertension. B. Atrial fibrillation. C. Gastroesophageal reflux disease. D. Bilateral foot drops. E. The patient is mostly bedbound, wheelchair bound. PLAN: To continue with IV fluid. Continue with IV clindamycin. Apparently, she is on apixaban that was apparently missing from her list. I will continue that. [place] DR: Sergio TID: [id number]
[2021-02-06 14:40] VITALS: BP 117/75
[2021-02-06 20:06] VITALS: BP 138/79
[2021-02-06] MEDS: ACETAMINOPHEN 325 MG TABLET PO PRN (21:01)
[2021-02-06] MEDS: ATORVASTATIN CALCIUM 20 MG TABLET PO SCH (21:01)
[2021-02-06] MEDS: APIXABAN 2.5 MG TABLET PO SCH (21:02)
[2021-02-07] VITALS: BP 116/71
[2021-02-07] MEDS: CLINDAMYCIN 600MG PREMIX 50 ML IV SCH ×3 (06:50→20:25)
[2021-02-07 08:27] LABS: CALCIUM 8.4 mg/dL (8.5-10.1); CREATININE 1.2 mg/dL (0.6-1.0); GFR 42.8
[2021-02-07] MEDS: PANTOPRAZOLE 40 MG TABLET. PO SCH (08:31)
[2021-02-07 08:32] LABS: POTASSIUM 5.6 mmol/L (3.5-5.1)
[2021-02-07] MEDS: METOPROLOL SUCC 24HR ER 25 MG TAB.ER.24H. PO SCH ×2 (08:32→20:18)
[2021-02-07] MEDS: BACLOFEN 20 MG TABLET PO SCH ×3 (08:32→20:17)
[2021-02-07] MEDS: APIXABAN 2.5 MG TABLET PO SCH (08:32)
[2021-02-07] MEDS: ASPIRIN CHEWABLE 81 MG TABLET. PO SCH (08:33)
[2021-02-07] MEDS: CHOLECALCIFEROL (VITAMIN D3) 1,000 UNIT TABLET PO SCH (08:33)
[2021-02-07] MEDS: NYSTATIN TOPICAL POWDER 15GM BOTTLE. TP SCH ×2 (08:33→20:18)
[2021-02-07] MEDS: LACTOBACILLUS RHAMNOSUS GG 1 CAPSULE. PO SCH ×2 (08:33→20:17)
[2021-02-07] MEDS: GABAPENTIN 300 MG CAPSULE. PO SCH ×3 (08:33→20:17)
[2021-02-07] MEDS: FERROUS SULFATE 325 MG TABLET. PO SCH (08:33)
[2021-02-07] MEDS ORDERED: LACTULOSE 20 GM/30 ML SOLUTION. PO ONE (10:30)
[2021-02-07] MEDS: ACETAMINOPHEN 325 MG TABLET PO PRN (10:32)
[2021-02-07] MEDS ORDERED: SODIUM POLYSTYRENE SULFONATE 15 GM/60 ML ORAL.SUSP. PO ONE (11:00)
[2021-02-07 11:44] VITALS: BP 134/63
--- NOTE | 2021-02-07 11:45 | PN ---
DATE: 09/20/2020 SUBJECTIVE: The patient is resting, slightly propped up in bed, in no apparent distress. She is definitely more awake, alert and all the swelling and erythema of both lower extremities have largely subsided. Her urine is much clearer. PHYSICAL EXAMINATION: GENERAL: When I examined her, she was pale. No jaundice or cyanosis, no lymphadenopathy, no thyromegaly, no jugular venous distention. No lower limb edema. VITAL SIGNS: Her heart rate was 70, blood pressure is 131/72, temperature was 97.3, respiratory rate was 16 and oxygen saturation 100% on room air. HEAD, EYES, EARS, NOSE AND THROAT: Normocephalic, atraumatic. NECK: Supple. HEART: Normal first and second heart sounds, no gallop or murmur. CHEST: Clear to auscultation. No crepitation or rhonchi. ABDOMEN: Distended, soft, nontender. NEUROLOGIC: She was awake, alert, responding appropriately. All cranial nerves intact. Able to move her upper extremities without difficulty. She has bilateral footdrop. ASSESSMENT: 1. Right lower extremity cellulitis, resolving. 2. Acute encephalopathy, probably multifactorial including metabolic as well as infectious process improving. The patient is definitely more awake, alert, responding appropriately. She is now able to feed herself. 3. 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 Primidone cannot be given because of interaction with Eliquis and she is already on metoprolol. We switched her metoprolol to propranolol for peripheral neuropathy. PLAN: To continue with IV antibiotic. Tomorrow, we will ask surgical intervention therapy to evaluate her and probably switch her to oral antibiotic and discharge her home with home health or to a long term facility which she agreed to go. RACHEL/JOANA DR: RACHEL/woo TID: [id number] Appended Assistant Head Cashier - Dictated on 02/07/2021 10:35:51 AM SUBJECTIVE: The patient is resting, slightly propped up in bed, in no apparent distress. She is definitely more awake, alert, responding appropriately. On questioning her, she denied any complaint. Nursing staff did not voice any concern, stated that she has uneventful night. The erythema of her both lower legs are fading, not completely resolved. PHYSICAL EXAMINATION: GENERAL: When I examined her, she was pale, but no jaundiced or cyanosed, no thyromegaly. No jugular venous distention. No lower limb edema. VITAL SIGNS: Her heart rate was 82, blood pressure is 116/71, temperature was 96.8, respiratory rate was 18 and oxygen saturation was 91% on room air. HEAD, EYES, EARS, NOSE, AND THROAT: Normocephalic, atraumatic. NECK: Supple. HEART: Normal first and second heart sounds, no gallop or murmur. CHEST: Clear to auscultation, no crepitation or rhonchi. ABDOMEN: Distended, soft, nontender. NEUROLOGIC: She is awake, alert, responding appropriately. Cranial nerves intact. She moves upper extremities to much good extent than lower extremities. She has a markedly essential familial tremors. She has bilateral footdrop, marked muscle wasting of both lower extremities. Her intake was 1120 and no output was recorded. LABORATORY DATA: This morning showed a serum sodium of 129, potassium 5.6, chloride 97, bicarbonate 22, anion gap of 10, BUN 37, creatinine 1.2. Estimated GFR was 42 mL per minute. Her glucose 100, calcium was 8.4. Her white cell count was 9000, hemoglobin 13, hematocrit 40, MCV 108 and platelet count 215,000. ASSESSMENT: 1. Altered mental status, resolved. The patient is more awake, alert, responding appropriately. 2. Bilateral lower extremity cellulitis. 3. Acute kidney injury, resolving. Her BUN and creatinine are down to 37 and 1.2. 4. Hyponatremia. 5. Hyperkalemia. 6. The patient has multiple other medical problems including: A. Hypertension. B. Atrial fibrillation. C. Gastroesophageal reflux disease. D. Bilateral footdrop. E. The patient is mostly bedbound, wheelchair bound. PLAN: To continue with IV clindamycin, switch IV fluid to D5 half normal at 75 mL, also treated her with Kayexalate 30 grams plus lactulose 30 mL. We will check her potassium this afternoon and then again tomorrow morning. MIRTA MCKEON MD
[2021-02-07] MEDS: IV DEXTROSE 5 %-0.45 % NACL 1,000 ML IV SCH ×2 (12:19→20:26)
--- NOTE | 2021-02-07 12:46 | RAD ---
XR CHEST 1V History: Reason: worsening SOB / Spl. Instructions: / History: Comparison: February 05, 2021 Findings: Mild linear left basilar atelectasis. Decreased interstitial thickening. No consolidation or pleural effusion. Normal heart size. No pneumothorax. Left-sided pacemaker. Impression: 1. Decreased interstitial thickening. Electronically signed by: Cassius Byrd DO (02/07/2021 12:44 PM) [facility] [place]
[2021-02-07 15:23] VITALS: BP 124/57
[2021-02-07 18:12] VITALS: BP 127/80
[2021-02-07 19:13] LABS: CALCIUM 8.5 mg/dL (8.5-10.1); CREATININE 1.5 mg/dL (0.6-1.0); GFR 33.1; POTASSIUM 4.9 mmol/L (3.5-5.1)
[2021-02-07] MEDS: ATORVASTATIN CALCIUM 20 MG TABLET PO SCH (20:17)
[2021-02-07] MEDS: APIXABAN 5 MG TABLET. PO SCH (20:25)
[2021-02-08] MEDS: ACETAMINOPHEN 325 MG TABLET PO PRN ×2 (00:17→08:00)
[2021-02-08] MEDS: CLINDAMYCIN 600MG PREMIX 50 ML IV SCH (05:41)
[2021-02-08 06:18] VITALS: BP 153/87
[2021-02-08 06:54] LABS: CALCIUM 8.3 mg/dL (8.5-10.1); CREATININE 1.3 mg/dL (0.6-1.0); POTASSIUM 4.5 mmol/L (3.5-5.1)
[2021-02-08] MEDS: CHOLECALCIFEROL (VITAMIN D3) 1,000 UNIT TABLET PO SCH (07:59)
[2021-02-08] MEDS: GABAPENTIN 300 MG CAPSULE. PO SCH (08:00)
[2021-02-08] MEDS: LACTOBACILLUS RHAMNOSUS GG 1 CAPSULE. PO SCH (08:01)
[2021-02-08] MEDS: METOPROLOL SUCC 24HR ER 25 MG TAB.ER.24H. PO SCH (08:01)
[2021-02-08] MEDS: FERROUS SULFATE 325 MG TABLET. PO SCH (08:01)
[2021-02-08] MEDS: APIXABAN 5 MG TABLET. PO SCH (08:01)
[2021-02-08] MEDS: PANTOPRAZOLE 40 MG TABLET. PO SCH (08:01)
[2021-02-08] MEDS: ASPIRIN CHEWABLE 81 MG TABLET. PO SCH (08:02)
[2021-02-08] MEDS: BACLOFEN 20 MG TABLET PO SCH (08:02)
[2021-02-08] MEDS: NYSTATIN TOPICAL POWDER 15GM BOTTLE. TP SCH (08:03)
[2021-02-08] MEDS ORDERED: CLIN-95 PO (10:37)
[2021-02-08] MEDS ORDERED: LACT100C2 PO (10:37)
[2021-02-08 10:39] VITALS: BP 127/80
--- NOTE | 2021-02-08 10:40 | DISCH ---
HOME HEALTH DISCHARGE/MEDS DISCHARGE INFORMATION: Discharge Date: Feb 08, 2021 Final Diagnosis: altered mental status acute kidney injury bilateral lower extremity cellulituis Condition on Discharge: Stable CODE STATUS: Code Status: Full HOME HEALTH: Face to Face: I certify this patient is under my care and that I, or a nurse practitioner or physician's library assistant working with me, had a face to face encounter that meets the physician face to face encounter requirements with this patient on 02/08/2021 Medical Condition(s): Other Detention For: Medication Management Physical Therapy For: Evalulation/Treatment Occupational Therapy For: Evaluation/Treatment POST DISCHARGE ORDERS: DIET AFTER DISCHARGE: Regular CERTIFICATION STATEMENT: Certification Statement: Based on the above finding, I certify that this patient is confined to the home and needs intermittent [place] [facility] care, physical therapy and/or speech therapy, or continues to need occupational therapy.~ This patient is under my care, and I have initiated the establishment of the plan of care.~ This patient will be followed by myself or a community physician who will periodically review the plan of care. DISCHARGE MEDICATIONS: Home Meds Active Scripts Lactobacillus Acidophilus (Acidophilus) 100 Mg Capsule, 1 CAP PO TID for antibiotics for 7 Days, #21 CAP 0 Refills Prov:MIRTA MCKEON MD 02/08/21 Clindamycin Hcl (CLINDAMYCIN HCL) 300 Mg Capsule, 300 MG PO TID for cellulitis for 7 Days, #21 CAP 0 Refills Prov:MIRTA MCKEON MD 02/08/21 Lisinopril (LISINOPRIL) 10 Mg Tablet, 1 TAB PO DAILY for htn for 30 Days, #30 TAB 5 Refills Prov:MIRTA MCKEON MD 10/16/20 Reported Medications Apixaban (ELIQUIS) 5 Mg Tablet, 5 MG PO TID for BLOOD THINNER, TAB 02/06/21 Hydroxyzine Hcl (HYDROXYZINE HCL) 25 Mg Tablet, 100 MG PO HS for anxiety, TAB 02/03/21 Baclofen (BACLOFEN) 20 Mg Tablet, 1 TAB PO TID for MUSCLE SPASM, #90 TAB 2 Refills 10/16/20 Spironolactone (SPIRONOLACTONE) 25 Mg Tablet, 1 TAB PO DAILY for CHF, #90 TAB 1 Refill 10/15/20 Metoprolol Succinate (METOPROLOL SUCCINATE ( XL )) 25 Mg Tab.er.24h, 0.5 TAB PO BID for HTN, #30 TAB 5 Refills 10/15/20 Atorvastatin Calcium (ATORVASTATIN CALCIUM) 80 Mg Tablet, 80 MG PO QHS for FOR CHOLESTEROL, #30 TAB 0 Refills 10/15/20 Nystatin (NYSTATIN) 15 Gm Powder, 1 ROSMERY TP BID for RT breast, john area for 7 Days, #1 BOTTLE 0 Refills apply to affected area(s) 09/16/20 Pantoprazole Sodium (PANTOPRAZOLE SODIUM) 40 Mg Tablet.dr, 1 TAB PO DAILY for GERD, #30 TAB 3 Refills LAST DOSE GIVEN: DATE:Today TIME:aM NEXT DOSE DUE: DATE:Tomorrow TIME:AM 09/16/20 Gabapentin (GABAPENTIN) 600 Mg Tablet, 600 MG PO TID for NEUROGENIC PAIN, TAB LAST DOSE GIVEN: DATE:Today TIME:AM NEXT DOSE DUE: DATE:TOday TIME:2:00 09/16/20 Furosemide (FUROSEMIDE) 40 Mg Tablet, 1 TAB PO DAILY for DIURETIC, #30 TAB 5 Refills LAST DOSE GIVEN: DATE:today TIME:AM NEXT DOSE DUE: DATE:Tomorrow TIME:AM 09/16/20 Ferrous Sulfate (FERROUS SULFATE) 325 Mg Tablet, 1 TAB PO DAILY for SUPPLEMENT, #30 TAB 3 Refills LAST DOSE GIVEN: DATE:today TIME:AM NEXT DOSE DUE: DATE:Tomorrow TIME:AM 09/16/20 Cholecalciferol (Vitamin D3) (Dialyvite Vitamin D) 125 Mcg Capsule, 125 MCG PO DAILY for SUPPLEMENT, CAP LAST DOSE GIVEN: DATE:TOday TIME:Am NEXT DOSE DUE: DATE:Tomorrow TIME:AM 09/16/20 Aspirin (ASPIRIN) 81 Mg Tab.chew, 81 MG PO DAILY for BLOOD THINNER, TAB LAST DOSE GIVEN: DATE:today TIME:am NEXT DOSE DUE: DATE:tomorrow TIME:AM 09/16/20 Acetaminophen (ACETAMINOPHEN) 325 Mg Tablet, 325-650 MG PO PRN Q6HRS PRN for MILD PAIN / TEMP > 100.3'F, TAB LAST DOSE GIVEN: DATE:today TIME:1100 NEXT DOSE DUE: DATE:Today TIME:when and if needed 09/16/20 Discontinued Reported Medications Carbamazepine (CARBAMAZEPINE XR) 200 Mg Tab.er.12h, 200 MG PO BID for MOOD STABILIZER, TAB.SR 10/16/20 Apixaban (ELIQUIS) 5 Mg Tablet, 5 MG PO BID for BLOOD THINNER, TAB LAST DOSE GIVEN: DATE:Today TIME:AM NEXT DOSE DUE: DATE:Today TIME:PM 09/16/20 MIRTA MCKEON MD Feb 08, 2021 10:40
[2021-02-08] MEDS ORDERED: APIX5TAB3 PO (10:49)
--- NOTE | 2021-02-08 11:04 | DS ---
HOSPITAL COURSE: The patient is an 85-year-old female patient who was admitted with altered mental status. Further investigation showed that she has bilateral lower extremity cellulitis and acute kidney injury. She was started on IV clindamycin and IV fluid. I held her diuretics as well as her spironolactone and lisinopril and she did very well. She remained afebrile, her white cell count was normal. Her blood cultures were so far negative. Her kidney function has also improved such that her BUN is down to 28, creatinine to 1.3 from 1.8 and a decision was made to discharge her home to continue treatment with oral clindamycin. PHYSICAL EXAMINATION: GENERAL: When I saw her this morning, she was sitting comfortably in her chair in no apparent respiratory distress. She was somewhat pale, not jaundiced or cyanosed, no lymphadenopathy, no thyromegaly, no jugular venous distention. No lower limb edema. VITAL SIGNS: Her heart rate was 72, blood pressure 153/87, temperature was 98.3, respiratory rate was 20 and oxygen saturation was 95%. HEAD, EYES, EARS, NOSE, AND THROAT: Normocephalic, atraumatic. NECK: Supple. HEART: Showed normal first and second heart sounds, no gallop or murmur. CHEST: Clear to auscultation, no crepitation or rhonchi. ABDOMEN: Distended, soft, nontender. NEUROLOGIC: She is awake, alert, responding appropriately. All cranial nerves intact. She moves upper extremities without difficulty. She is mostly bedbound, wheelchair bound. Her intake was 930, no output was recorded. LABORATORY DATA: Her lab work this morning showed a white cell count 9000, hemoglobin 13, hematocrit 40, MCV 108 and platelet count of 215,000. Serum sodium is 137, potassium 4.5, chloride 103, bicarbonate 25, anion gap of 9, BUN 28, creatinine 1.3. Estimated GFR was 39 mL per minute. Her glucose was 89, calcium was 8.3. DISCHARGE MEDICATIONS: The patient was discharged home with home health to continue clindamycin 300 mg 3 times a day for 7 days, lactobacillus acidophilus 100 mg 3 times a day. Should continue on all other medication including acetaminophen 650 every 6 hours, apixaban 5 mg twice a day, aspirin 81 mg once a day, atorvastatin calcium 80 mg at bedtime, baclofen 20 mg 3 times a day, cholecalciferol for vitamin D3 125 mcg once a day, ferrous sulfate 325 mg daily, furosemide 40 mg daily, gabapentin 600 mg 3 times a day, hydroxyzine 100 mg at bedtime, lisinopril 10 mg once a day, metoprolol succinate 25 mg once a day, nystatin powder apply topically twice a day, Protonix 40 mg once a day and spironolactone 25 mg once a day. FINAL DISCHARGE DIAGNOSES: 1. Altered mental status, resolved. 2. Bilateral lower extremity cellulitis, resolved. 3. Acute kidney injury, resolved. 4. 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 5. Hyponatremia, resolved. 6. Hyperkalemia, resolved. 7. The patient has multiple other medical problems including: A. Hypertension. B. Atrial fibrillation. C. Gastroesophageal reflux disease. D. Bilateral footdrop. E. The patient is mostly bedbound, wheelchair bound She was evaluated by our physical therapist and they recommended long-term facility, but the patient was adamant that she will not go there. She wants to go home with home health. JIE DR: Sergio TID: [id number]
== END 2021-02-08 13:05 | disposition home health service (06) | DRG 682 ==
LOC: ER 09:55 → 1 SOUTH 13:46 → ER 15:48
PROVIDERS: ADMIT Internal Medicine; ATTEND Internal Medicine
DX: N17.9 Acute kidney failure, unspecified (principal); G93.41 Metabolic encephalopathy; L03.115 Cellulitis of right lower limb; E87.1 Hypo-osmolality and hyponatremia; L03.116 Cellulitis of left lower limb; E87.5 Hyperkalemia; E78.5 Hyperlipidemia, unspecified; G25.0 Essential tremor; G62.9 Polyneuropathy, unspecified; I10 Essential (primary) hypertension; I48.91 Unspecified atrial fibrillation; K21.9 Gastro-esophageal reflux disease without esophagitis; M21.371 Foot drop, right foot; M21.372 Foot drop, left foot; Z20.822 Contact with and (suspected) exposure to COVID-19; Z95.0 Presence of cardiac pacemaker; Z95.5 Presence of coronary angioplasty implant and graft; I25.2 Old myocardial infarction; Z99.3 Dependence on wheelchair; Z74.01 Bed confinement status
CPT/HCPCS: 36415; 70450; 71045; 80048; 80053; 81001; 82140; 82803; 82947; 83605; 85025; 85027; 85610; 85730; 87426; 87804; 93005; 96365; J3490; P9612; U0003; 97530; 99285-25

== ENCOUNTER → 2021-07-31 | Outpatient (CLI) | payer MEDICARE, OTHER ==
[~2021-07-31] MED LIST changes: +CLIN-95 PO; +LACT100C2 PO
[2021-07-31 10:32] LABS: ALBUMIN 3.5 g/dL (3.4-5.0); ALBUMIN/GLOBULIN RATIO 0.9 (1.0-1.7); CALCIUM 9.6 mg/dL (8.5-10.1); CREATININE 1.1 mg/dL (0.6-1.0); GFR 47.2; POTASSIUM 4.3 mmol/L (3.5-5.1); TOTAL BILIRUBIN 0.5 mg/dL (0.2-1.0); TOTAL PROTEIN 7.6 g/dL (6.4-8.2)
[2021-07-31 14:34] LABS: CHOLESTEROL/HDL RATIO 2.1
[2021-08-01 05:39] LABS: HEMOGLOBIN A1C 5.5 % (4.8-5.6)
== END ==
LOC: LAB 09:19
PROVIDERS: ATTEND Family Medicine
DX: I10 Essential (primary) hypertension (principal); E11.9 Type 2 diabetes mellitus without complications; E78.5 Hyperlipidemia, unspecified; E55.9 Vitamin D deficiency, unspecified
CPT/HCPCS: 36415; 80053; 80061; 82306; 83036